=== PATIENT | female | born 1950 | race Caucasian/White ===

== ENCOUNTER → 2016-05-26 | Outpatient (CLI) | payer OTHER ==
[~2016-05-26] MED LIST: AMLO-110 PO; AMLO-114 PO; AMT50 PO; ATOR10TA82 PO; CALC500C70 PO; CARB0.01 OP; CETI10TA10 PO; CHOL1000 PO; ESTR10TA; GLCSC750600 PO; LISI40TA PO; LNS1 PO; MULT-190 PO; MULT-506 PO; OMEG10007 PO; OMEP20TA PO; [UNRECOGNIZED DRUG - CODE]; [UNRECOGNIZED DRUG - CODE] EX
--- NOTE | 2016-05-26 12:56 | DIAGNOSTIC IMAGING REPORT ---
CHEST 2 VIEWS ROUTINE CLINICAL HISTORY: ACUTE BRONCHITIS dyspnea COMPARISON STUDY: No previous studies for comparison. FINDINGS: Small parenchymal infiltrate medial right base. Moderate emphysematous change. Lungs otherwise appear clear. IMPRESSION: Small parenchymal infiltrate medial right base. Emphysematous change. Electronically signed by: Jewel Mcintosh M.D. 05/26/2016 12:54 PM Dictated Date/Time: 05/26/2016 12:51 PM
== END | disposition home or self-care (01) ==
LOC: C.RADBC 12:31
PROVIDERS: ATTEND Internal Medicine
DX: J20.9 Acute bronchitis, unspecified (principal); R50.9 Fever, unspecified; R05 Cough; R91.8 Other nonspecific abnormal finding of lung field

== ENCOUNTER → 2016-06-19 | Outpatient (CLI) | payer OTHER ==
--- NOTE | 2016-06-19 12:03 | DIAGNOSTIC IMAGING REPORT ---
CHEST 2 VIEWS ROUTINE CLINICAL HISTORY: ACUTE BRONCHITIS, FEVER, PRODUCTIVE COUGH COMPARISON STUDY: No previous studies for comparison. FINDINGS: The cardiac and mediastinal contours are normal. There is no evidence of focal pulmonary consolidation. There is no evidence of failure. No pleural effusions are visualized.[ There are minor linear atelectatic changes at the lung bases. IMPRESSION: No active disease in the chest. Electronically signed by: Mauricio Casas M.D. 06/19/2016 12:02 PM Dictated Date/Time: 06/19/2016 12:02 PM
== END | disposition home or self-care (01) ==
LOC: C.RADBC 11:16
PROVIDERS: ATTEND Internal Medicine
DX: J20.9 Acute bronchitis, unspecified (principal)

== ENCOUNTER → 2016-09-01 | Outpatient (CLI) | payer OTHER ==
[~2016-09-01] MED LIST changes: -ATOR10TA82 PO; +ATOR10TA88 PO
--- NOTE | 2016-09-04 08:00 | MAMMOGRAPHY REPORT ---
BILATERAL DIGITAL SCREENING MAMMOGRAM TOMOSYNTHESIS WITH CAD: 09/01/2016 CLINICAL HISTORY: Routine screening. TECHNIQUE: Breast tomosynthesis in addition to standard 2D mammography was performed. Current study was also evaluated with a Computer Aided Detection (CAD) system. COMPARISON: Comparison is made to exams dated: 08/31/2015 mammogram, 08/25/2014 mammogram, 06/05/2013 m ammogram, 04/24/2012 mammogram, 05/25/2011 mammogram, and 05/23/2010 mammogram - [facility] enter. BREAST COMPOSITION: The tissue of both breasts is heterogeneously dense, which may obscure small mas ses. FINDINGS: There are multiple bilateral circumscribed masses in the breasts. There are scattered deacon gn coarse calcifications and mild vascular calcification in the breasts. No suspicious spiculated or irregular mass, architectural distortion or cluster of new, suspicious microcalcifications is seen. IMPRESSION: ACR BI-RADS CATEGORY 1: NEGATIVE There is no mammographic evidence of malignancy. A 1 year screening mammogram is recommended. The pa tient will receive written notification of the results. Approximately 10% of breast cancers are not detected with mammography. A negative mammographic report should not delay biopsy if a clinically suggestive mass is present. Francisca Lee M.D. ay/:09/01/2016 16:14:22 Garnetter: Aravind ARCINIEGA(Mark)(M), [facility] letter sent: Normal 1/2 BI-RADS Code: ACR BI-RADS Category 1: Negative
== END | disposition home or self-care (01) ==
LOC: C.MAMM 10:59
PROVIDERS: ATTEND Internal Medicine Geriatric Medicine
DX: Z12.31 Encounter for screening mammogram for malignant neoplasm of breast (principal)

== ENCOUNTER → 2016-09-07 | Outpatient (CLI) | payer OTHER ==
[2016-09-07 17:20] LABS: BASO % 0.3 %; BASO ABS # 0.02 K/uL (0-0.2); COMPLETE YES; EOS % 1.2 %; IG% 0.2 %; LYMPH % 25.2 %; LYMPH ABS # 1.45 K/uL (1.2-3.4); MEAN CELL VOLUME 90.7 fL (80-100); MEAN CORPUSCULAR HEMOGLOBIN 30.1 pg (25-34); MEAN CORPUSCULAR HGB CONC 33.2 g/dl (32-36); MEAN PLATELET VOLUME 9.7 fL (7.4-10.4); MONO % 8.7 %; NEUT % 64.4 %; PLATELET COUNT 310 K/uL (130-400); RED BLOOD COUNT 4.08 M/uL (4.2-5.4); WHITE BLOOD COUNT 5.75 K/uL (4.8-10.8)
== END | disposition home or self-care (01) ==
LOC: C.LABBC 13:50
PROVIDERS: ATTEND Internal Medicine Geriatric Medicine
DX: R23.8 Other skin changes (principal)

== ENCOUNTER 2016-10-18 01:51 | Emergency (ER) | payer OTHER ==
[~2016-10-18] VITALS: Ht 166.4 cm; Wt 73.1 kg
[~2016-10-18 01:51] MED LIST changes: -AMLO-114 PO; -CETI10TA10 PO; -LNS1 PO; -OMEP20TA PO
[2016-10-18 02:00] VITALS: TEMP 36.6; Ht 166.4 cm; Wt 73.1 kg
--- NOTE | 2016-10-18 02:19 | EMERGENCY ROOM VISIT NOTE ---
History Report prepared by Diana: Evans Link Under the Supervision of: Dr. Amandeep Johnson D.O. First contact with patient: 02:04 Chief Complaint: ARM PAIN Stated Complaint: PAIN LEFT ARM, SWEAT,NAUSEA History of Present Illness The patient is a 66 year old female who presents to the Emergency Room with complaints of left arm pain that began 5 hours ago. She rates her pain a 0.5/10 in severity. An hour before the pain began, the patient notes that she carried a heavy 50 pound suitcase up the stairs. When the pain began, she felt a hot flash and the pain only lasted for 1 minute. She was then nauseated for 15 minutes. She denies any other symptoms at this current time, besides her arm pain. Source of History: patient Onset: 5 hours ago Position: arm (left) Symptom Intensity: 0.5/10 Quality: ache Timing: constant Note: She denies any other symptoms at this time. Review of Systems See HPI for pertinent positives and negatives. A total of ten systems were reviewed and were otherwise negative. Past Medical & Surgical Medical Problems: (1) HLD (hyperlipidemia) (2) HTN (hypertension) Family History Omitted secondary to the patient's age. Social History Smoking Status: Former Smoker Smokeless Tobacco Use: No Drug Use: none Marital Status: Housing Status: lives with significant other Occupation Status: retired Current/Historical Medications Scheduled Amlodipine (Norvasc), 10 MG PO DAILY Atorvastatin (Lipitor), 10 MG PO DAILY Calcium/Vitamin D (Os-Johny 500 Plus D), 2 TAB PO DAILY Carboxymethylcellulose-Glyceri (Optive), 1-2 DROPS OP PRN Cetirizine Hcl (Zyrtec), 10 MG PO DAILY Cholecalciferol (Vitamin D3), 1,000 INTER.UNIT PO DAILY Fish Oil (Slidell-3), 1,000 MG PO DAILY Lisinopril (Zestril), 40 MG PO DAILY Metronidazole (Metrolotion), 1 APPL EX DAILY Ocuvite Preservision (Ocuvite Preservision), 1 TAB PO DAILY Omeprazole (Omeprazole), 20 MG PO BID Scheduled PRN Eszopiclone (Lunesta), 1-2 MG PO HS PRN for Sleep Miscellaneous Medications Estradiol Vaginal (Vagifem), 10 MCG Allergies Coded Allergies: Amoxicillin (Verified Allergy, Unknown, DIARRHEA, 10/18/16) Bacitracin (Verified Allergy, Unknown, ITCHING, 10/18/16) Clavulanic Acid (Verified Allergy, Unknown, DIARRHEA, 10/18/16) Neomycin (Verified Allergy, Unknown, ITCHING, 10/18/16) Polymyxin B (Verified Allergy, Unknown, ITCHING, 10/18/16) Sulfa Drugs (Verified Allergy, Unknown, RASH, 10/18/16) Physical Exam Vital Signs Date Time Temp Pulse Resp B/P (MAP) Pulse Ox O2 Delivery O2 Flow Rate FiO2 10/18/16 03:38 82 12 123/73 95 Room Air 10/18/16 02:18 Room Air 10/18/16 02:14 97 10/18/16 02:00 36.6 95 18 143/78 100 Room Air Physical Exam GENERAL: Awake, alert, well-appearing, in no distress HENT: Normocephalic, atraumatic. Oropharynx unremarkable. EYES: Normal conjunctiva. Sclera non-icteric. NECK: Supple. No nuchal rigidity. FROM. No JVD. RESPIRATORY: Clear to auscultation. CARDIAC: Regular rate, normal rhythm. Extremities warm and well perfused. Pulses equal. ABDOMEN: Soft, non-distended. No tenderness to palpation. No rebound or guarding. No masses. RECTAL: Deferred. MUSCULOSKELETAL: Chest examination reveals no tenderness. The back is symmetrical on inspection without obvious abnormality. There is no CVA tenderness to palpation. No joint edema. LOWER EXTREMITIES: Calves are equal size bilaterally and non-tender. No edema. No discoloration. NEURO: Normal sensorium. No sensory or motor deficits noted. SKIN: No rash or jaundice noted. Medical Decision & Procedures ER Provider Diagnostic Interpretation: Radiology results as stated below per my review and radiologist interpretation: Chest x-ray Findings: A chest x-ray was performed and revealed no pneumothorax, effusion, infiltrate, pulmonary edema, free air under the diaphragm, or wide mediastinum. Per nm Laboratory Results 10/18/16 02:30 Red Blood Count 4.21, Mean Corpuscular Volume 88.6, Mean Corpuscular Hemoglobin 29.0, Mean Corpuscular Hemoglobin Concent 32.7, Mean Platelet Volume 8.9, Neutrophils (%) (Auto) 67.8, Lymphocytes (%) (Auto) 23.2, Monocytes (%) (Auto) 7.9, Eosinophils (%) (Auto) 0.7, Basophils (%) (Auto) 0.3, Neutrophils # (Auto) 4.99, Lymphocytes # (Auto) 1.71, Monocytes # (Auto) 0.58, Eosinophils # (Auto) 0.05, Basophils # (Auto) 0.02 10/18/16 02:30 Test 10/18/16 02:30 10/18/16 04:00 White Blood Count 7.36 K/uL (4.8-10.8) Red Blood Count 4.21 M/uL (4.2-5.4) Hemoglobin 12.2 g/dL (12.0-16.0) Hematocrit 37.3 % (37-47) Mean Corpuscular Volume 88.6 fL (80-100) Mean Corpuscular Hemoglobin 29.0 pg (25-34) Mean Corpuscular Hemoglobin Concent 32.7 g/dl (32-36) Platelet Count 279 K/uL (130-400) Mean Platelet Volume 8.9 fL (7.4-10.4) Neutrophils (%) (Auto) 67.8 % Lymphocytes (%) (Auto) 23.2 % Monocytes (%) (Auto) 7.9 % Eosinophils (%) (Auto) 0.7 % Basophils (%) (Auto) 0.3 % Neutrophils # (Auto) 4.99 K/uL (1.4-6.5) Lymphocytes # (Auto) 1.71 K/uL (1.2-3.4) Monocytes # (Auto) 0.58 K/uL (0.11-0.59) Eosinophils # (Auto) 0.05 K/uL (0-0.5) Basophils # (Auto) 0.02 K/uL (0-0.2) RDW Standard Deviation 39.3 fL (36.4-46.3) RDW Coefficient of Variation 12.2 % (11.5-14.5) Immature Granulocyte % (Auto) 0.1 % Immature Granulocyte # (Auto) 0.01 K/uL (0.00-0.02) Anion Gap 7.0 mmol/L (3-11) Est Creatinine Clear Calc Drug Dose 63.0 ml/min Estimated GFR () 78.3 Estimated GFR (Non- 67.5 BUN/Creatinine Ratio 16.2 (10-20) Calcium Level 10.2 mg/dl (8.5-10.1) Total Bilirubin 0.5 mg/dl (0.2-1) Direct Bilirubin 0.1 mg/dl (0-0.2) Aspartate Amino Transf (AST/SGOT) 22 U/L (15-37) Alanine Aminotransferase (ALT/SGPT) 25 U/L (12-78) Alkaline Phosphatase 85 U/L (45-117) Total Protein 7.9 gm/dl (6.4-8.2) Albumin 4.1 gm/dl (3.4-5.0) Bedside Troponin I < 0.030 ng/ml (0-0.045) Laboratory results reviewed by me ECG Indication: other (Arm pain) Rate (beats per minute): 95 Rhythm: normal sinus Findings: no acute ischemic change, other (Normal intervals, normal axis) ED Course 0204: The patient was evaluated in room B4B. A complete history and physical exam was performed. 0440: I reevaluated the patient. Discussed results and discharge instructions: She verbalized understanding and agreement. The patient is ready for discharge. Medical Decision Differential diagnoses include atypical cardiac, musculoskeletal pain, arm pain , muscle strain, and tendonitis. Repeat examination patient's resting in no distress patient has a low heart score. I do not suspect acute coronary syndrome thoracic aortic dissection or pulmonary embolism. It appears that the patient may have injured her arm when she was lifting luggage area patient has 2 troponins and a normal EKG there are nonischemic. I discussed evaluation with the patient and her at bedside at 4:45 AM and she would like to be discharged Medication Reconcilliation Current Medication List: was personally reviewed by me Blood Pressure Screening Patient's blood pressure: Normal blood pressure Blood pressure disposition: Did not require urgent referral Her first BP was high, and I believe this to be situational. Impression Primary Impression: Arm pain, left Scribe Attestation The scribe's documentation has been prepared under my direction and personally reviewed by me in its entirety. I confirm that the note above accurately reflects all work, treatment, procedures, and medical decision making performed by me. Departure Information Dispostion Home / Self-Care Referrals Vadim Doyle M.D. (PCP) Forms HOME CARE DOCUMENTATION FORM, IMPORTANT VISIT INFORMATION Patient Instructions ED Chest Pain Atypical Unkn Cause, ED Spasm Muscle, My [facility] Additional Instructions F/u with PMD; return if worse
[2016-10-18] MEDS ORDERED: AMLO-114 PO (02:25)
[2016-10-18] MEDS ORDERED: LNS1 PO (02:25)
[2016-10-18] MEDS ORDERED: OMEP20TA PO (02:25)
[2016-10-18] MEDS ORDERED: CETI10TA10 PO (02:25)
[2016-10-18 02:43] LABS: BASO % 0.3 %; BASO ABS # 0.02 K/uL (0-0.2); COMPLETE YES; EOS % 0.7 %; HEMATOCRIT 37.3 % (37-47); IG% 0.1 %; LYMPH % 23.2 %; LYMPH ABS # 1.71 K/uL (1.2-3.4); MEAN CELL VOLUME 88.6 fL (80-100); MEAN CORPUSCULAR HGB CONC 32.7 g/dl (32-36); MEAN PLATELET VOLUME 8.9 fL (7.4-10.4); MONO % 7.9 %; NEUT % 67.8 %; PLATELET COUNT 279 K/uL (130-400); RED BLOOD COUNT 4.21 M/uL (4.2-5.4); WHITE BLOOD COUNT 7.36 K/uL (4.8-10.8)
[2016-10-18 03:10] LABS: BUN/CREATININE RATIO 16.2 (10-20); CALCIUM 10.2 mg/dl (8.5-10.1); CREATININE 0.89 mg/dl (0.60-1.20); POTASSIUM 3.8 mmol/L (3.5-5.1)
[2016-10-18 04:53] VITALS: BP 121/66; PULSE 88; O2SAT 96
--- NOTE | 2016-10-18 06:34 | DIAGNOSTIC IMAGING REPORT ---
CHEST ONE VIEW PORTABLE HISTORY: 66 years-old Female CHEST PAIN acute left-sided chest pain without reported trauma. COMPARISON: Chest radiograph 06/19/2016 TECHNIQUE: AP view of the chest FINDINGS: Cardiomediastinal and hilar silhouettes are within normal limits. No pneumothorax, pleural effusion or focal airspace consolidation. There is no overt pulmonary edema. There is atherosclerosis of the aorta. Lungs are mildly hyperinflated. There is persistent subsegmental atelectasis of the left lung base. Bones are grossly intact. IMPRESSION: Mild hyperinflation without acute cardiopulmonary process. The above report was generated using voice recognition software. It may contain grammatical, syntax or spelling errors. Electronically signed by: Joao Evangelista M.D. 10/18/2016 6:32 AM Dictated Date/Time: 10/18/2016 6:31 AM
== END 2016-10-18 04:53 | disposition home or self-care (01) ==
LOC: C.EDB 01:52
DX: M79.602 Pain in left arm (principal); E78.5 Hyperlipidemia, unspecified; I10 Essential (primary) hypertension; Z87.891 Personal history of nicotine dependence; Z79.899 Other long term (current) drug therapy

== ENCOUNTER → 2017-01-08 | Outpatient (CLI) | payer OTHER ==
[~2017-01-08] MED LIST changes: -AMLO-110 PO; +AMLO-114 PO; -AMT50 PO; +ATOR10TA82 PO; -ATOR10TA88 PO; +CETI10TA10 PO; -GLCSC750600 PO; +LNS1 PO; -MULT-506 PO; +OMEP20TA PO; -[UNRECOGNIZED DRUG - CODE]
[2017-01-08 16:57] LABS: BASO % 0.4 %; BASO ABS # 0.02 K/uL (0-0.2); COMPLETE YES; EOS % 2.7 %; HEMATOCRIT 36.8 % (37-47); IG% 0.2 %; LYMPH % 24.9 %; MEAN CELL VOLUME 91.1 fL (80-100); MEAN CORPUSCULAR HEMOGLOBIN 29.5 pg (25-34); MEAN CORPUSCULAR HGB CONC 32.3 g/dl (32-36); MEAN PLATELET VOLUME 9.8 fL (7.4-10.4); MONO % 10.1 %; NEUT % 61.7 %; PLATELET COUNT 311 K/uL (130-400); RED BLOOD COUNT 4.04 M/uL (4.2-5.4); WHITE BLOOD COUNT 5.23 K/uL (4.8-10.8)
[2017-01-08 17:13] LABS: ALB/GLOB RATIO 1.2 (0.9-2); ALT/SGPT 28 U/L (12-78); AST/SGOT 24 U/L (15-37); BLOOD UREA NITROGEN 24 mg/dl (7-18); BUN/CREATININE RATIO 20.2 (10-20); CALCIUM 9.2 mg/dl (8.5-10.1); CARBON DIOXIDE 25 mmol/L (21-32); CHLORIDE 104 mmol/L (98-107); CHOLESTEROL 158 mg/dl (0-200); GLUCOSE 143 mg/dl (70-99); POTASSIUM 4.1 mmol/L (3.5-5.1); SODIUM 137 mmol/L (136-145); TRIGLYCERIDES 157 mg/dl (0-150); VERY LOW DENSITY LIPOPROT CALC 31 mg/dl
[2017-01-08 17:22] LABS: ALKALINE PHOSPHATASE 85 U/L (45-117); CHOLESTEROL/HDL RATIO 2.8; HDL CHOLESTEROL 57 mg/dl; LDL CHOLESTEROL CALCULATED 70 mg/dl
== END | disposition home or self-care (01) ==
LOC: C.LABBC 14:36
PROVIDERS: ATTEND Internal Medicine Geriatric Medicine
DX: I10 Essential (primary) hypertension (principal); E78.5 Hyperlipidemia, unspecified; I73.00 Raynaud's syndrome without gangrene; M85.80 Other specified disorders of bone density and structure, unspecified site

== ENCOUNTER → 2017-02-21 | Outpatient (CLI) | payer OTHER ==
[2017-02-21 17:21] LABS: BASO % 0.2 %; BASO ABS # 0.01 K/uL (0-0.2); EOS % 1.4 %; EOS ABS # 0.08 K/uL (0-0.5); HEMATOCRIT 37.9 % (37-47); HEMOGLOBIN 12.8 g/dL (12.0-16.0); IG# 0.01 K/uL (0.00-0.02); LYMPH % 28.4 %; LYMPH ABS # 1.67 K/uL (1.2-3.4); MEAN CORPUSCULAR HEMOGLOBIN 30.4 pg (25-34); MEAN CORPUSCULAR HGB CONC 33.8 g/dl (32-36); MEAN PLATELET VOLUME 10.4 fL (7.4-10.4); MONO % 10.7 %; MONO ABS # 0.63 K/uL (0.11-0.59); NEUT % 59.1 %; NEUT ABS # 3.47 K/uL (1.4-6.5); PLATELET COUNT 308 K/uL (130-400); RED CELL DISTRIBUTION WIDTH CV 13.1 % (11.5-14.5); RED CELL DISTRIBUTION WIDTH SD 42.8 fL (36.4-46.3); WHITE BLOOD COUNT 5.87 K/uL (4.8-10.8)
[2017-02-22 06:16] LABS: HEMOGLOBIN A1C 5.3 % (4.5-5.6)
== END | disposition home or self-care (01) ==
LOC: C.LABBC 13:14
PROVIDERS: ATTEND Internal Medicine Geriatric Medicine
DX: D64.9 Anemia, unspecified (principal); R73.9 Hyperglycemia, unspecified

== ENCOUNTER → 2017-09-03 | Outpatient (CLI) | payer OTHER ==
[~2017-09-03] MED LIST changes: -AMLO-114 PO; +AMLO10TA3 PO
--- NOTE | 2017-09-04 07:32 | MAMMOGRAPHY REPORT ---
BILATERAL DIGITAL SCREENING MAMMOGRAM TOMOSYNTHESIS WITH CAD: 09/03/2017 CLINICAL HISTORY: Routine screening. Patient has no complaints. TECHNIQUE: The study was acquired using full field digital technology and interpreted from soft copy. Breast tomosynthesis in addition to standard 2D mammography was performed. Current study was also ev aluated with a Computer Aided Detection (CAD) system. COMPARISON: Comparison is made to exams dated: 09/01/2016 mammogram, 08/31/2015 mammogram, 08/25/2014 m ammogram, 06/05/2013 mammogram, 04/24/2012 mammogram, and 05/25/2011 mammogram - [facility] enter. BREAST COMPOSITION: The tissue of both breasts is extremely dense, which lowers the sensitivity of ma mmography. FINDINGS: There are clustered microcalcifications in the upper outer posterior left breast, for which additional spot magnification views are recommended, possibly also including a spot magnification ex aggerated lateral CC projection. There are multiple bilateral circumscribed masses scattered in both breasts, fluctuating in size comp aring to prior mammograms, most likely representing fluctuating cysts. A lobulated and circumscribed 15 mm mass in the 12:00 posterior left breast has associated coarse calcification and may represent a degenerating fibroadenoma. There are other scattered benign-appearing calcifications bilaterally. Mild vascular calcification as well. No other suspicious mass, architectural distortion or cluster o f microcalcifications is seen. IMPRESSION: ACR BI-RADS CATEGORY 0: INCOMPLETE EVALUATION: NEED ADDITIONAL IMAGING EVALUATION The clustered microcalcifications in the upper outer left breast need additional evaluation. The patient will be called to schedule an appointment. Some breast cancers are not detected with mammography. A negative mammographic report should not jasper y biopsy if a clinically suggestive mass is present. Francisca Lee M.D. ay/:09/03/2017 17:26:01 Offset Lithographic Press Operator: RT Laney(Mark)(M), [facility] letter sent: Addl Imaging 0 BI-RADS Code: ACR BI-RADS Category 0: Incomplete Evaluation: Need Additional Imaging Evaluation
== END | disposition home or self-care (01) ==
LOC: C.MAMM 13:52
PROVIDERS: ATTEND Internal Medicine Geriatric Medicine
DX: Z12.31 Encounter for screening mammogram for malignant neoplasm of breast (principal); R92.0 Mammographic microcalcification found on diagnostic imaging of breast

== ENCOUNTER → 2017-09-12 | Outpatient (CLI) | payer OTHER ==
--- NOTE | 2017-09-12 14:57 | MAMMOGRAPHY REPORT ---
UNILATERAL LEFT DIGITAL DIAGNOSTIC MAMMOGRAM: 09/12/2017 CLINICAL HISTORY: 67-year-old woman called back from screening mammography for clustered microcalcifi cations in the left upper outer posterior breast. No family history of breast cancer. TECHNIQUE: Spot magnification left CC and ML views were obtained. COMPARISON: Comparison is made to exams dated: 09/03/2017 mammogram, 09/01/2016 mammogram, 08/31/2015 m ammogram, 08/25/2014 mammogram, 04/24/2012 ultrasound, and 05/25/2011 mammogram - [facility]. BREAST COMPOSITION: The tissue of left breast is heterogeneously dense, which may obscure small marcos s. FINDINGS: The spot magnification views of the left breast demonstrate a 7 mm cluster of amorphous adeel rocalcifications in the upper outer posterior breast. There are also scattered benign-appearing punc sotelo microcalcifications and coarse calcifications with associated stable mass in the 12:00 posterior left breast. When comparing back to prior available mammograms, particularly the 2013 and 2014 mamm ograms including an exaggerated lateral cc view performed 08/25/2014, these calcifications were likely present and with approximately 4 years of stability are most likely benign. However, given slight i ncreased conspicuity on the more recent exams, which may be due in part due to new equipment, a short interval follow-up left diagnostic mammogram including spot magnification views is recommended in 6 months. IMPRESSION: ACR-BI-RADS CATEGORY 3: PROBABLY BENIGN 1. There is a 7 mm cluster of amorphous microcalcifications in the upper outer posterior left breast , which may have been present on prior 2D mammograms dating back to 2013, therefore likely benign. G iven slight increased conspicuity, which may be in part due to new equipment, a short interval follow -up left diagnostic mammogram including spot magnification views is recommended in 6 months to ensure stability. These results recommendations were discussed with the patient at the time of the exam. She tentative ly scheduled a follow-up appointment prior to leaving the department. Some breast cancers are not detected with mammography. A negative mammographic report should not jasper y biopsy if a clinically suggestive mass is present. Francisca Lee M.D. ay/:09/12/2017 11:07:59 Chief Engineer Waterworks: RT Coni(Mark)(M), [facility] letter sent: Follow Up Recommended 3 BI-RADS Code: ACR-BI-RADS Category 3: Probably Benign
== END | disposition home or self-care (01) ==
LOC: C.MAMM 10:44
PROVIDERS: ATTEND Internal Medicine Geriatric Medicine
DX: R92.0 Mammographic microcalcification found on diagnostic imaging of breast (principal)

== ENCOUNTER 2020-11-11 17:39 | Inpatient (IN) ==
[2020-11-11 18:38] LABS: Basophils # (auto) 0.01 K/uL (0-0.2); Basophils % (auto) 0.2 %; Eosinophils # (auto) 0.01 K/uL (0-0.5); Eosinophils % (auto) 0.2 %; Hematocrit (blood only) 41.8 % (37-47); Hemoglobin 14.9 g/dL (12.0-16.0); Immature Granulocytes # (auto) 0.02 K/uL (0.00-0.02); Immature Granulocytes % (auto) 0.3 %; Lymphocytes # (auto) 0.98 K/uL (1.2-3.4); Lymphocytes % (auto) 16.3 %; Mean Corpuscular Hemoglobin 29.9 pg (25-34); Mean Corpuscular Hgb Conc 35.6 g/dL (32-36); Mean Corpuscular Volume 83.8 fL (80-100); Mean Platelet Volume 8.8 fL (7.4-10.4); Monocytes # (auto) 0.87 K/uL (0.11-0.59); Monocytes % (auto) 14.5 %; Neutrophils # (auto) 4.12 K/uL (1.4-6.5); Neutrophils % (auto) 68.5 %; Platelet Count 296 K/uL (130-400); RDW Coefficient of Variation 12.7 % (11.5-14.5); RDW Standard Deviation 38.5 fL (36.4-46.3); Red Blood Count 4.99 M/uL (4.2-5.4); White Blood Count 6.01 K/uL (4.8-10.8)
[2020-11-11 19:02] LABS: Alanine Aminotransferase 36 U/L (12-78); Albumin Level 3.8 gm/dl (3.4-5.0); Aspartate Aminotransferase 28 U/L (15-37); BUN Creatinine Ratio 8.6 (10-20); Blood Urea Nitrogen 10 mg/dl (7-18); Calcium 10.1 mg/dl (8.5-10.1); Carbon Dioxide 21 mmol/L (21-32); Chloride 92 mmol/L (98-107); Creatinine Clr Calc Pharmacy 46.9 ml/min; Est GFR (African American) 55.2 ml/min; Est GFR (Non-African American) 47.7 ml/min; Glucose 112 mg/dl (70-99); Potassium 3.6 mmol/L (3.5-5.1); Sodium 127 mmol/L (136-145)
[2020-11-11] MEDS ORDERED: SODIUM CHLORIDE 0.9% 1000ML 1,000 ML IV ONE (19:07)
[2020-11-11] MEDS ORDERED: LORazepam 1 MG/2 ML VIAL IV STA ×2 (19:07→19:59)
--- NOTE | 2020-11-11 19:09 | XRay Report ---
XR chest 1V portable INDICATION: MN ^weakness . TECHNIQUE: Single frontal radiograph of the chest was obtained. Comparison: Comparison is made to chest one view 10/18/2016 FINDINGS: No lines and tubes are seen. The cardiomediastinal silhouette is normal. The lungs are clear. No evid ence of pleural effusion or pneumothorax. IMPRESSION: No acute chest disease. ACT 112: Negative or not required by law. Electronically signed by: Trey De La Fuente M.D. 11/11/2020 7:08 PM
[2020-11-11 19:12] LABS: Albumin Globulin Ratio 0.8 (0.9-2); Alkaline Phosphatase 110 U/L (45-117); Bilirubin,Total 0.5 mg/dl (0.2-1); Globulin 4.5 gm/dl (2.5-4.0); Total Protein 8.3 gm/dl (6.4-8.2); Troponin I < 0.015 ng/ml (0-0.045)
--- NOTE | 2020-11-11 19:12 | Emergency Department Note ---
History of Present Illness General Chief complaint: Weakness Stated complaint: DIARRHEA, WEAK Time Seen by Provider: 11/11/20 18:55 Source: patient, RN notes reviewed and old records reviewed Mode of arrival: ambulatory Limitations: no limitations History of Present Illness Maximum Pain Intensity: 0 This patient comes in after having increasing diarrhea and weakness. She tells me she had diarrhea for about a year but is gotten worse over the last week and worse over last couple days. She has a GI appointment tomorrow. No nausea or vomiting she had temperature yesterday. No cough or shortness of breath she did have a Covid vaccine. She says she is feeling very anxious and shaky. Denies abdominal pain or headache. No fall or trauma. No sick contacts. No history of C. difficile. She does admit to me that she drinks 6-8 drinks a day and does not know if she has any withdrawal symptoms. She last drank yesterday. No blood or melena in her stool Home Medications Medication Instructions Recorded Confirmed Type cetirizine 10 mg tablet (Zyrtec) 10 mg PO DAILY 08/09/18 11/11/20 History propylene glycol 0.6 % eye drops 1 drp OPHTHALMIC (EYE) DIRECTED 08/09/18 11/11/20 History PRN estradiol 10 mcg vaginal tablet 5 mcg VAGINAL 2XWK tab 04/17/19 11/11/20 History (Yuvafem) lisinopril 40 mg tablet 40 mg PO DAILY #90 tab 01/30/20 11/11/20 Rx hydroxyzine HCl 25 mg tablet 50 mg PO HS PRN 30 Days #60 tab 04/14/20 11/11/20 Rx atorvastatin 10 mg tablet 10 mg PO DAILY #90 tab 06/15/20 11/11/20 Rx amlodipine 10 mg tablet 10 mg PO DAILY #90 tab 08/30/20 11/11/20 Rx omeprazole 20 mg capsule,delayed 20 mg PO BID #180 cap 09/10/20 11/11/20 Rx release aspirin 81 mg tablet,delayed 81 mg PO DAILY #90 tab 11/05/20 11/11/20 Rx release (Adult Aspirin Regimen) vitamin B complex 1 tab PO DAILY #30 tab 11/05/20 11/11/20 Rx cholecalciferol (vitamin D3) 50 100 mcg PO QAM 11/11/20 11/11/20 History mcg (2,000 unit) tablet (Vitamin D3) eszopiclone 2 mg tablet 2 mg PO HS 11/11/20 11/11/20 History Allergies Allergy/AdvReac Type Severity Reaction Status Date / Time bacitracin Allergy Mild ITCHING Verified 11/11/20 20:41 neomycin Allergy Mild ITCHING Verified 11/11/20 20:41 polymyxin B Allergy Mild ITCHING Verified 11/11/20 20:41 Sulfa (Sulfonamide Allergy Mild RASH Verified 11/11/20 20:41 Antibiotics) amoxicillin AdvReac Intermediate DIARRHEA Verified 11/11/20 20:41 clavulanic acid AdvReac Intermediate DIARRHEA Verified 11/11/20 20:41 Past Med/Surg History Medical History (Updated 11/12/20 @ 02:30 by Godfrey Monterroso MD) Contracture of finger joint Gastroesophageal reflux disease Headache Insomnia Mitral valve disorder Osteopenia Raynauds phenomenon Tubular adenoma of colon Vitamin D deficiency Surgical History Hx of section Hx of colonoscopy Hx of hand surgery Hx of tonsillectomy Family History Mother , age 61 of an [place] Dyslipidemia Heart disease Stroke Myocardial infarction Aunt Lung cancer Uncle Lung cancer Father , at 67 of heart failure Heart disease Daughter Migraine Grandmother (Maternal) Myocardial infarction Denies family history of Ovarian cancer Prostate cancer Breast cancer Colorectal cancer Social History Smoking Status: Never smoker Tobacco Type: Cigarettes Age Started Using Tobacco: 18; Age Quit Using Tobacco: 36; packs per day: 1; Years Smoked: 18; Cigarettes Per Day: 20 a day; Number of Years Since Quit: 30; Second Hand Exposure: No; Hx Alcohol Use: Yes Alcohol type: beer and wine Alcohol type Comment: 3-4 Alcohol Intake Frequency Comment: patient has 3 or 4 drinks of beer and/or wine per day and has been doing t Hx Substance Use: No Preferred Language: Lao Communication Ability: Effective Visual Impairment: No Limitations Hearing Ability: Normal marital status: Current Living Situation: Spouse current occupational status: retired 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 Feels Safe at Home: Yes Childhood Exposure to Second-Hand Smoke: Yes (father) Physical Activity Frequency: 3-4 Times per Week Seatbelt Use: always Sunscreen Use: Yes Review of Systems A total of 10 systems reviewed and were otherwise negative Physical Exam Vital Signs Vital Signs - 24 hr 11/11/20 17:58 11/11/20 18:17 11/11/20 18:30 Temperature 37.0 C Temperature Source Oral Pulse Rate 138 H 145 H 138 H Pulse Rate [Carotid] Pulse Rate from SpO2 Sensor 149 H 146 H Pulse Rhythm [Carotid] Pulse Strength [Carotid] Respiratory Rate 20 20 18 Respiratory Effort / Characteristics Respiratory Depth Respiratory Pattern Blood Pressure 122/85 137/102 H 172/90 H Blood Pressure [Right Arm] Blood Pressure Mean 97 113 117 Blood Pressure Mean [Right Arm] Blood Pressure Position [Right Arm] Pulse Oximetry 99 100 100 Oxygen Delivery Method Room Air Sepsis Recent Fever Within 48 Hours No Sepsis New/Unexplained Change in Mental Status N/A Sepsis Action Taken by Nursing No Action Required 11/11/20 19:08 11/12/20 01:59 Temperature Temperature Source Pulse Rate Pulse Rate [Carotid] 137 H 103 H Pulse Rate from SpO2 Sensor Pulse Rhythm [Carotid] Regular Regular Pulse Strength [Carotid] Normal Normal Respiratory Rate 20 20 Respiratory Effort / Characteristics Non-Labored Non-Labored Respiratory Depth Normal Respiratory Pattern Regular Blood Pressure Blood Pressure [Right Arm] 135/83 133/82 Blood Pressure Mean Blood Pressure Mean [Right Arm] 100 99 Blood Pressure Position [Right Arm] Sitting Lying Pulse Oximetry 97 94 Oxygen Delivery Method Room Air Room Air Sepsis Recent Fever Within 48 Hours Sepsis New/Unexplained Change in Mental Status Sepsis Action Taken by Nursing General: Well developed well nourished somewhat anxious and mildly shaky older female who otherwise appears in no acute distress, breathing comfortably on room air. Normal speech HEENT: Normal cephalic atraumatic. Pupils are equal round and reactive to lig ht. Extraocular movements are intact. Oropharynx is pink with moist mucous membranes. No swelling of the mouth lips or tongue. Neck: Supple with a midline trachea. No meningeal signs or stiffness, no JVD or bruits. No Stridor. Chest: Clear to auscultation bilaterally. No wheezes or rhonchi. No increased work of breathing. Heart tachycardic with a heart rate in the 140s and it seems irregular at times. Without murmurs or gallops. Abdomen: Soft nontender, nondistended without rebound guarding or rigidity. Extremities: No cyanosis clubbing or edema. No calf tenderness or assymetry Spine/Back. Non tender to palpation. No CVA tenderness Skin: Good turgor without rashes. Neurologic exam: Cranial nerves two through 12 are intact. Motor and sensation are intact and symmetrical throughout. Some shakiness when I have her hold her hands out Course Administered Medications Discontinued Medications Sodium Chloride (Nss 1000ml) 1,000 mls @ 999 mls/hr IV .Q1H1M ONE Stop: 11/11/20 20:07 Last Admin: 11/11/20 19:20 Dose: 999 mls/hr Documented by: [id number] Lorazepam (Ativan) 1 mg in 2 mls @ 2 mls/min IV NOW STA Stop: 11/11/20 19:08 Last Admin: 11/11/20 19:20 Dose: 2 mls/min Documented by: [id number] Multivitamins 10 ml/ Thiamine HCl 100 mg/ Folic Acid 1 mg/Sodium Chloride 1,011.2 mls @ 1,011.2 mls/hr IV .Q1H ONE Stop: 11/11/20 20:53 Last Admin: 11/11/20 21:27 Dose: 1,011.2 mls/hr Documented by: [id number] Potassium Chloride (K Dmitriy / Wtr) 10 meq in 100 mls @ 100 mls/hr IV Q1H STA Stop: 11/11/20 22:04 Last Admin: 11/11/20 22:25 Dose: 100 mls/hr Documented by: [id number] Potassium Chloride (K Dmitriy / Wtr) 10 meq in 100 mls @ 100 mls/hr IV ONE ONE Stop: 11/11/20 23:02 Last Admin: 11/11/20 22:59 Dose: 100 mls/hr Documented by: [id number] Medical Decision Making Differential Diagnosis Diarrhea, dehydration, arrhythmia, A. fib, electrolyte or metabolic abnormality, alcohol withdrawal, toxicologic, anemia, metabolic, infectious, Covid, C. difficile Medical Records Attestation: I reviewed the patient's medical records. Home Medications Current Medication List: was personally reviewed by me Laboratory Data Attestation: I reviewed the patient's lab results. Result diagrams: 11/11/20 18:26 11/11/20 18:26 Lab Results 11/11/20 11/11/20 11/11/20 Range/Units 18:26 18:26 18:26 WBC 6.01 (4.8-10.8) K/uL RBC 4.99 (4.2-5.4) M/uL Hgb 14.9 (12.0-16.0) g/dL Hct 41.8 (37-47) % MCV 83.8 (80-100) fL MCH 29.9 (25-34) pg MCHC 35.6 (32-36) g/dL RDW Std Deviation 38.5 (36.4-46.3) fL RDW Coeff of [place] 12.7 (11.5-14.5) % Plt Count 296 (130-400) K/uL MPV 8.8 (7.4-10.4) fL Immature Gran % (Auto) 0.3 % Neut % (Auto) 68.5 % Lymph % (Auto) 16.3 % [place] % (Auto) 14.5 % Eos % (Auto) 0.2 % Baso % (Auto) 0.2 % Neut # (Auto) 4.12 (1.4-6.5) K/uL Lymph # (Auto) 0.98 L (1.2-3.4) K/uL [place] # (Auto) 0.87 H (0.11-0.59) K/uL Eos # (Auto) 0.01 (0-0.5) K/uL Baso # (Auto) 0.01 (0-0.2) K/uL Immature Gran # (Auto) 0.02 (0.00-0.02) K/uL Sodium 127 L (136-145) mmol/L Potassium 3.6 (3.5-5.1) mmol/L Chloride 92 L (98-107) mmol/L Carbon Dioxide 21 (21-32) mmol/L Anion Gap 14.0 H (3-11) BUN 10 (7-18) mg/dl Creatinine 1.16 (0.6-1.2) mg/dl Est Cr Clr Drug Dosing 46.9 ml/min Est GFR ( Amer) 55.2 ml/min Est GFR (Non-Af Amer) 47.7 ml/min BUN/Creatinine Ratio 8.6 L (10-20) Glucose 112 H (70-99) mg/dl Osmolality 270 L (280-300) mOsm/kg Calcium 10.1 (8.5-10.1) mg/dl Magnesium (1.8-2.4) mg/dl Total Bilirubin 0.5 (0.2-1) mg/dl AST 28 (15-37) U/L ALT 36 (12-78) U/L Alkaline Phosphatase 110 (45-117) U/L Troponin I < 0.015 (0-0.045) ng/ml Total Protein 8.3 H (6.4-8.2) gm/dl Albumin 3.8 (3.4-5.0) gm/dl Globulin 4.5 H (2.5-4.0) gm/dl Albumin/Globulin Ratio 0.8 L (0.9-2) TSH 2.080 (0.300-4.500) uIu/ml Urine Color Urine Appearance (Clear) Urine pH (4.5-7.5) Ur Specific [place] (1.000-1.030) Urine Protein (Negative) Urine Glucose (UA) (Negative) Urine Ketones (Negative) Urine Blood (Negative) Urine Nitrite (Negative) Urine Bilirubin (Negative) Urine Urobilinogen (Negative) Ur Leukocyte Esterase (Negative) Urine WBC (Auto) (0-5) /hpf Urine RBC (Auto) (0-4) /hpf U Hyaline Cast (Auto) (0-5) /lpf U Epithel Cells (Auto) (0-5) /lpf Urine Bacteria (Auto) (Negative) Urine Osmolality (500-800) mOsm/kg Ur Random Sodium mmol/L Stl C. diff Tox B Gene (Neg) Ethyl Alcohol mg/dL (0-3) mg/dl COVID-19 Eval Order SARS-CoV-2 (PCR) (Negative) 11/11/20 11/11/20 11/11/20 Range/Units 19:06 19:08 19:08 WBC (4.8-10.8) K/uL RBC (4.2-5.4) M/uL Hgb (12.0-16.0) g/dL Hct (37-47) % MCV (80-100) fL MCH (25-34) pg MCHC (32-36) g/dL RDW Std Deviation (36.4-46.3) fL RDW Coeff of [place] (11.5-14.5) % Plt Count (130-400) K/uL MPV (7.4-10.4) fL Immature Gran % (Auto) % Neut % (Auto) % Lymph % (Auto) % [place] % (Auto) % Eos % (Auto) % Baso % (Auto) % Neut # (Auto) (1.4-6.5) K/uL Lymph # (Auto) (1.2-3.4) K/uL [place] # (Auto) (0.11-0.59) K/uL Eos # (Auto) (0-0.5) K/uL Baso # (Auto) (0-0.2) K/uL Immature Gran # (Auto) (0.00-0.02) K/uL Sodium (136-145) mmol/L Potassium (3.5-5.1) mmol/L Chloride (98-107) mmol/L Carbon Dioxide (21-32) mmol/L Anion Gap (3-11) BUN (7-18) mg/dl Creatinine (0.6-1.2) mg/dl Est Cr Clr Drug Dosing ml/min Est GFR ( Amer) ml/min Est GFR (Non-Af Amer) ml/min BUN/Creatinine Ratio (10-20) Glucose (70-99) mg/dl Osmolality (280-300) mOsm/kg Calcium (8.5-10.1) mg/dl Magnesium 2.2 (1.8-2.4) mg/dl Total Bilirubin (0.2-1) mg/dl AST (15-37) U/L ALT (12-78) U/L Alkaline Phosphatase (45-117) U/L Troponin I (0-0.045) ng/ml Total Protein (6.4-8.2) gm/dl Albumin (3.4-5.0) gm/dl Globulin (2.5-4.0) gm/dl Albumin/Globulin Ratio (0.9-2) TSH 2.190 (0.300-4.500) uIu/ml Urine Color Urine Appearance (Clear) Urine pH (4.5-7.5) Ur Specific [place] (1.000-1.030) Urine Protein (Negative) Urine Glucose (UA) (Negative) Urine Ketones (Negative) Urine Blood (Negative) Urine Nitrite (Negative) Urine Bilirubin (Negative) Urine Urobilinogen (Negative) Ur Leukocyte Esterase (Negative) Urine WBC (Auto) (0-5) /hpf Urine RBC (Auto) (0-4) /hpf U Hyaline Cast (Auto) (0-5) /lpf U Epithel Cells (Auto) (0-5) /lpf Urine Bacteria (Auto) (Negative) Urine Osmolality (500-800) mOsm/kg Ur Random Sodium mmol/L Stl C. diff Tox B Gene (Neg) Ethyl Alcohol mg/dL (0-3) mg/dl COVID-19 Eval Order Covid19 at [facility] SARS-CoV-2 (PCR) NEGATIVE (Negative) 11/11/20 11/12/20 11/12/20 Range/Units 21:17 00:10 00:10 WBC (4.8-10.8) K/uL RBC (4.2-5.4) M/uL Hgb (12.0-16.0) g/dL Hct (37-47) % MCV (80-100) fL MCH (25-34) pg MCHC (32-36) g/dL RDW Std Deviation (36.4-46.3) fL RDW Coeff of [place] (11.5-14.5) % Plt Count (130-400) K/uL MPV (7.4-10.4) fL Immature Gran % (Auto) % Neut % (Auto) % Lymph % (Auto) % [place] % (Auto) % Eos % (Auto) % Baso % (Auto) % Neut # (Auto) (1.4-6.5) K/uL Lymph # (Auto) (1.2-3.4) K/uL [place] # (Auto) (0.11-0.59) K/uL Eos # (Auto) (0-0.5) K/uL Baso # (Auto) (0-0.2) K/uL Immature Gran # (Auto) (0.00-0.02) K/uL Sodium (136-145) mmol/L Potassium (3.5-5.1) mmol/L Chloride (98-107) mmol/L Carbon Dioxide (21-32) mmol/L Anion Gap (3-11) BUN (7-18) mg/dl Creatinine (0.6-1.2) mg/dl Est Cr Clr Drug Dosing ml/min Est GFR ( Amer) ml/min Est GFR (Non-Af Amer) ml/min BUN/Creatinine Ratio (10-20) Glucose (70-99) mg/dl Osmolality (280-300) mOsm/kg Calcium (8.5-10.1) mg/dl Magnesium (1.8-2.4) mg/dl Total Bilirubin (0.2-1) mg/dl AST (15-37) U/L ALT (12-78) U/L Alkaline Phosphatase (45-117) U/L Troponin I (0-0.045) ng/ml Total Protein (6.4-8.2) gm/dl Albumin (3.4-5.0) gm/dl Globulin (2.5-4.0) gm/dl Albumin/Globulin Ratio (0.9-2) TSH (0.300-4.500) uIu/ml Urine Color Yellow Urine Appearance Clear (Clear) Urine pH 6.0 (4.5-7.5) Ur Specific [place] 1.010 (1.000-1.030) Urine Protein Trace H (Negative) Urine Glucose (UA) Negative (Negative) Urine Ketones 1+ H (Negative) Urine Blood Trace H (Negative) Urine Nitrite Negative (Negative) Urine Bilirubin Negative (Negative) Urine Urobilinogen Negative (Negative) Ur Leukocyte Esterase Negative (Negative) Urine WBC (Auto) 1-5 (0-5) /hpf Urine RBC (Auto) 0-4 (0-4) /hpf U Hyaline Cast (Auto) 1-5 (0-5) /lpf U Epithel Cells (Auto) >30 H (0-5) /lpf Urine Bacteria (Auto) 1+ H (Negative) Urine Osmolality (500-800) mOsm/kg Ur Random Sodium mmol/L Stl C. diff Tox B Gene Negative Cdiff Gene (Neg) Ethyl Alcohol mg/dL < 3.0 (0-3) mg/dl COVID-19 Eval Order SARS-CoV-2 (PCR) (Negative) 11/12/20 11/12/20 Range/Units 00:10 00:10 WBC (4.8-10.8) K/uL RBC (4.2-5.4) M/uL Hgb (12.0-16.0) g/dL Hct (37-47) % MCV (80-100) fL MCH (25-34) pg MCHC (32-36) g/dL RDW Std Deviation (36.4-46.3) fL RDW Coeff of [place] (11.5-14.5) % Plt Count (130-400) K/uL MPV (7.4-10.4) fL Immature Gran % (Auto) % Neut % (Auto) % Lymph % (Auto) % [place] % (Auto) % Eos % (Auto) % Baso % (Auto) % Neut # (Auto) (1.4-6.5) K/uL Lymph # (Auto) (1.2-3.4) K/uL [place] # (Auto) (0.11-0.59) K/uL Eos # (Auto) (0-0.5) K/uL Baso # (Auto) (0-0.2) K/uL Immature Gran # (Auto) (0.00-0.02) K/uL Sodium (136-145) mmol/L Potassium (3.5-5.1) mmol/L Chloride (98-107) mmol/L Carbon Dioxide (21-32) mmol/L Anion Gap (3-11) BUN (7-18) mg/dl Creatinine (0.6-1.2) mg/dl Est Cr Clr Drug Dosing ml/min Est GFR ( Amer) ml/min Est GFR (Non-Af Amer) ml/min BUN/Creatinine Ratio (10-20) Glucose (70-99) mg/dl Osmolality (280-300) mOsm/kg Calcium (8.5-10.1) mg/dl Magnesium (1.8-2.4) mg/dl Total Bilirubin (0.2-1) mg/dl AST (15-37) U/L ALT (12-78) U/L Alkaline Phosphatase (45-117) U/L Troponin I (0-0.045) ng/ml Total Protein (6.4-8.2) gm/dl Albumin (3.4-5.0) gm/dl Globulin (2.5-4.0) gm/dl Albumin/Globulin Ratio (0.9-2) TSH (0.300-4.500) uIu/ml Urine Color Urine Appearance (Clear) Urine pH (4.5-7.5) Ur Specific [place] (1.000-1.030) Urine Protein (Negative) Urine Glucose (UA) (Negative) Urine Ketones (Negative) Urine Blood (Negative) Urine Nitrite (Negative) Urine Bilirubin (Negative) Urine Urobilinogen (Negative) Ur Leukocyte Esterase (Negative) Urine WBC (Auto) (0-5) /hpf Urine RBC (Auto) (0-4) /hpf U Hyaline Cast (Auto) (0-5) /lpf U Epithel Cells (Auto) (0-5) /lpf Urine Bacteria (Auto) (Negative) Urine Osmolality 309 L (500-800) mOsm/kg Ur Random Sodium 48 mmol/L Stl C. diff Tox B Gene (Neg) Ethyl Alcohol mg/dL (0-3) mg/dl COVID-19 Eval Order SARS-CoV-2 (PCR) (Negative) Imaging Data Attestation: I personally reviewed and interpreted this imaging study as follow s: My Impression: Chest x-rayno acute infiltrate, failure, pneumothorax. No cardiomegaly Radiologist's Impression: Chest X-Ray 11/11/20 18:04 XR chest 1V portable INDICATION: MN ^weakness . TECHNIQUE: Single frontal radiograph of the chest was obtained. Comparison: Comparison is made to chest one view 10/18/2016 FINDINGS: No lines and tubes are seen. The cardiomediastinal silhouette is normal. The kylee ngs are clear. No evidence of pleural effusion or pneumothorax. IMPRESSION: No acute chest disease. ACT 112: Negative or not required by law. Electronically signed by: Trey De La Fuente M.D. 11/11/2020 7:08 PM ECG Data Attestation: I personally reviewed and interpreted this ECG as follows: Indication: + weakness Rate (beats per minute): 141 Rhythm: + atrial fibrillation ECG Intervals/blocks: + Right Bundle branch block ECG [place]: + Normal ECG ST segments: + Normal ST segments ECG Findings: no PACs or no PVCs Comparison ECG Date: from (10/18/16) Change: the following changes noted (Atrial fibrillation has replaced normal sinus rhythm) MDM Narrative This patient comes in as described above. She was placed on a cafeteria cashier room C8. She was noted to have a rapid irregular narrow complex tachycardia likely consistent with A. fib. She appears to have an underlying right bundle branch block as well. IV axis tablet she does appear to be shaky and tells me she drinks 6-8 drinks a day and she feels nervous. She is asking something for her nerves. Give her Ativan 1 mg IV to help with this and also but any potential alcohol withdrawal she was given 1 L IV normal saline bolus. We did a chest x-ray does not show any congestive heart failure, pneumonia, or pneumothorax. EKG shows A. fib. Multiple blood testing was obtained. I did order stool studies and Covid testing as well. She was reassessed frequently. She did receive a second dose of IV Ativan. Her troponin is normal. Chest x- ray is normal. I think the A. fib may be related to her diarrhea/dehydration and alcohol use or withdrawal. I do think she needs to be admitted for further treatment and evaluation. Also Dr. Bauman to see her for these measures. Continuous cardiac monitoring: Orders placed in EMR for continuous cardiac m onitoring. Rapid A. fib with a rate of 140 Impression & Plan Atrial fibrillation with RVR, Acute dehydration, Lab test negative for COVID-19 virus, Alcohol use disorder Discharge Plan Visit Data Chief Complaint: Weakness Stated Complaint: DIARRHEA, WEAK ED Provider: Godfrey Monterroso Discharge Problem: Atrial fibrillation with RVR, Acute dehydration, Lab test negative for COVID-19 virus, Alcohol use disorder Forms Stand Alone Forms: My [facility] Prescriptions Prescriptions: No Action lisinopril 40 mg tablet 40 mg PO DAILY Qty: 90 RF: 3 atorvastatin 10 mg tablet 10 mg PO DAILY Qty: 90 RF: 3 amlodipine 10 mg tablet 10 mg PO DAILY Qty: 90 RF: 3 omeprazole 20 mg capsule,delayed release(DR/EC) 20 mg PO BID Qty: 180 RF: 1 aspirin [Adult Aspirin Regimen] 81 mg tablet,delayed release (DR/EC) 81 mg PO DAILY Qty: 90 RF: 3 vitamin B complex Tablet 1 tab PO DAILY Qty: 30 RF: 11 hydroxyzine HCl 25 mg tablet 50 mg PO HS PRN (Reason: insomnia) 30 Days Qty: 60 RF: 5 cetirizine [Zyrtec] 10 mg Tablet 10 mg PO DAILY RF: 0 propylene glycol 0.6 % Drops 1 drp OPHTHALMIC (EYE) DIRECTED PRN (Reason: Dry Eye(S)) RF: 0 estradiol [Yuvafem] 10 mcg tablet 5 mcg VAGINAL 2XWK RF: 0 eszopiclone 2 mg tablet 2 mg PO HS RF: 0 cholecalciferol (vitamin D3) [Vitamin D3] 50 mcg (2,000 unit) Tablet 100 mcg PO QAM RF: 0 Referrals Referrals: Thi Hill MD [Primary Care Provider] -
[2020-11-11 19:40] LABS: Magnesium 2.2 mg/dl (1.8-2.4); Thyroid Stimulating Hormone 2.19 uIu/ml (0.300-4.500)
[2020-11-11] MEDS ORDERED: MULTI-VITAMIN INFUSION 10 ML, THIAMINE HCL 100 MG, FOLIC ACID 1 MG in SODIUM CHLORIDE 0... IV ONE (19:54)
[2020-11-11] MEDS ORDERED: POTASSIUM CHLORIDE / WTR 10 MEQ/100 ML PLCT IV STA (21:05)
--- NOTE | 2020-11-11 21:19 | History & Physical Report ---
Date of Service November 11, 2020 Assessment & Plan (1) Alcohol withdrawal: Plan: Minerva Hairston is a 70-year-old female with past medical history of migraine with aura, mild aortic stenosis, tricuspid regurgitation, TIA, hyperlipidemia, hypertension, anxiety, GERD who comes to [facility] due to feeling very weak and having worsening diarrhea for the past 3 days. Has a long history of 6-8 drinks daily. Alcohol Withdrawal -Admit to PCU -AWSS protocol with as needed Ativan, daily thiamine and folate -Normal saline + 20mEq KCl at 125cc/hr for maintenance -Monitor mental status per protocol -Morning CBC, chemistry/liver profile Hyponatremia -Urine osmolality and urine sodium pending -Maintenance IV fluids as above -Monitor sodium in a.m. Tachycardia -EKG with sinus tachycardia -Consider IV Cardizem versus beta-blockers if not improving after IV fluids Diarrhea -Stool culture and WBC stool smear pending -C. difficile pending Hypertension/Hyperlipidemia -Holding home amlodipine at this time, continue lisinopril -Continue atorvastatin GERD -PPI per hospital formulary to substitute home omeprazole Anxiety/Insomnia -Hold home hold home hydroxyzine and eszopiclone DVT prophylaxis: SCDs Dispo: Admit to PCU for alcohol withdrawal protocol FEN GI: Regular diet, NSS plus KCl 20 mEq at 125 cc/h CODE STATUS: Full code (2) Diarrhea: (3) Hyperlipidemia: (4) Hypertension: (5) Gastroesophageal reflux disease: (6) Fatigue: (7) Anxiety disorder: History of Present Illness Primary Care Provider: Thi Hill MD Minerva Hairston is a 70-year-old female with past medical history of migraine with aura, mild aortic stenosis, tricuspid regurgitation, TIA, hyperlipidemia, hypertension, anxiety, GERD who comes to [facility] due to feeling very weak and having worsening diarrhea for the past 3 days. She mentions that she has had ongoing intermittent diarrhea for the past year that happens about 2 to 3 days/month in which she has 2-3 bowel movements per day. However, she mentions that since Sunday she had 15-20 bowel movements per day. She has been Covid vaccinated and has not been around anyone with similar symptoms. She does say that she drinks well water at home and in the room does not believe it has been chlorinated in a while. She says she had multiple episodes of bowel incontinence. Also reports a fever of 103. Reports a tiny amount of red blood and mucus in the stool. The patient reports a 6-8 drink per day alcohol history. She does report that she has wanted to scale this back but has not been able to. Over the last 2 days she reports drinking 1 glass of wine and 1 beer per day day. She denies any loss of consciousness, confusion, nausea, vomiting, cough, shortness of breath. In the ED patient been found to be tachycardic to 130s. Per review of her EKG by myself and attending physician, official read of atrial fibrillation is thought to be inaccurate and appears more as sinus tachycardia. Patient had normal chest x-ray. She had labs showing normal white count, normal hemoglobin, normal platelet count. She had a sodium of 127, serum osmolality of 270, negative troponin, and normal TSH. Ethyl alcohol levels, urine osmolality, and urine sodium levels pending. Patient received lorazepam 1 mg IV x2, banana bag x1, normal saline 1 L fluid bolus x1, potassium chloride 10 mEq IV x2. Allergies Allergy/AdvReac Type Severity Reaction Status Date / Time bacitracin Allergy Mild ITCHING Verified 11/11/20 20:41 neomycin Allergy Mild ITCHING Verified 11/11/20 20:41 polymyxin B Allergy Mild ITCHING Verified 11/11/20 20:41 Sulfa (Sulfonamide Allergy Mild RASH Verified 11/11/20 20:41 Antibiotics) amoxicillin AdvReac Intermediate DIARRHEA Verified 11/11/20 20:41 clavulanic acid AdvReac Intermediate DIARRHEA Verified 11/11/20 20:41 Home Medications Medication Instructions Recorded Confirmed Type cetirizine 10 mg tablet (Zyrtec) 10 mg PO DAILY 08/09/18 11/11/20 History propylene glycol 0.6 % eye drops 1 drp OPHTHALMIC (EYE) DIRECTED 08/09/18 11/11/20 History PRN estradiol 10 mcg vaginal tablet 5 mcg VAGINAL 2XWK tab 04/17/19 11/11/20 History (Yuvafem) lisinopril 40 mg tablet 40 mg PO DAILY #90 tab 01/30/20 11/11/20 Rx hydroxyzine HCl 25 mg tablet 50 mg PO HS PRN 30 Days #60 tab 04/14/20 11/11/20 Rx atorvastatin 10 mg tablet 10 mg PO DAILY #90 tab 06/15/20 11/11/20 Rx amlodipine 10 mg tablet 10 mg PO DAILY #90 tab 08/30/20 11/11/20 Rx omeprazole 20 mg capsule,delayed 20 mg PO BID #180 cap 09/10/20 11/11/20 Rx release aspirin 81 mg tablet,delayed 81 mg PO DAILY #90 tab 11/05/20 11/11/20 Rx release (Adult Aspirin Regimen) vitamin B complex 1 tab PO DAILY #30 tab 11/05/20 11/11/20 Rx cholecalciferol (vitamin D3) 50 100 mcg PO QAM 11/11/20 11/11/20 History mcg (2,000 unit) tablet (Vitamin D3) eszopiclone 2 mg tablet 2 mg PO HS 11/11/20 11/11/20 History Past Med/Surg History Medical History (Updated 11/12/20 @ 16:27 by Nitin Ceballos MD) Contracture of finger joint Gastroesophageal reflux disease Headache Insomnia Mitral valve disorder Osteopenia Raynauds phenomenon Tubular adenoma of colon Vitamin D deficiency Surgical History Hx of section Hx of colonoscopy Hx of hand surgery Hx of tonsillectomy Family History Mother , age 61 of an [place] Dyslipidemia Heart disease Stroke Myocardial infarction Aunt Lung cancer Uncle Lung cancer Father , at 67 of heart failure Heart disease Daughter Migraine Grandmother (Maternal) Myocardial infarction Denies family history of Ovarian cancer Prostate cancer Breast cancer Colorectal cancer Social History Smoking Status: Former smoker Tobacco Type: Cigarettes Age Started Using Tobacco: 18; Age Quit Using Tobacco: 36; packs per day: 1; Years Smoked: 18; Cigarettes Per Day: 20 a day; Smoking End Date: quit 35 yrs ago; Number of Years Since Quit: 30; Second Hand Exposure: No; Do You Dip or Chew Tobacco: No; Tobacco Cessation Education Requested by Patient: No Hx Alcohol Use: Yes Alcohol type: beer and wine Alcohol type Comment: 3-4 Alcohol Intake Frequency Comment: patient has 3 or 4 drinks of beer and/or wine per day and has been doing t Hx Substance Use: No Preferred Language: Sammarinese Communication Ability: Effective Visual Impairment: No Limitations Hearing Ability: Normal Bodily Injury Adjuster Required: No Beliefs That Will Affect Care: None marital status: Current Living Situation: Spouse current occupational status: retired 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 How many Children do You have: 1 Feels Safe at Home: Yes Safety Concerns: Feels Safe At This Time Childhood Exposure to Second-Hand Smoke: Yes (father) Physical Activity Frequency: 3-4 Times per Week Seatbelt Use: always Sunscreen Use: Yes Assistive Devices: None Review of Systems Constitutional: + fever, + chills and + weakness Eyes: no worsening vision Respiratory: no cough, no dyspnea and no wheezing Cardiovascular: no chest pain and no palpitations Gastrointestinal: + diarrhea/loose stools; no abdominal pain, no nausea and no vomiting Genitourinary: no dysuria, no urinary frequency and no urinary urgency Physical Exam Physical Exam: GENERAL: A&Ox3. NAD. HEENT: PERRL, EOMI. Moist mucous membranes. NECK: No JVD. No lymphadenopathy. CHEST/LUNGS: CTAB A/P. No crackles, wheezes, rales, rhonchi. HEART: RRR. No m/g/r. No carotid bruits. ABDOMEN: NT/ND, soft. BS+ x4 EXTREMITIES: No cyanosis, no clubbing, no edema. SKIN: Warm and dry. No rashes or lesions. PSYCHIATRIC: Euthymic affect, no SI, no pressured speech, no hallucinations NEUROLOGIC: No FND. CN II-XII grossly intact. Results & Data Results [facility] Data ([facility]) Vital Signs (Past 12 Hours) Vital Signs Temp Pulse Pulse Resp BP BP Pulse Ox 11/11/20 19:08 137 H 20 135/83 97 11/11/20 18:30 138 H 18 172/90 H 100 11/11/20 18:17 145 H 20 137/102 H 100 11/11/20 17:58 37.0 C 138 H 20 122/85 99 Supervising Physician Co-Signing Physician Notes Attending addendum: I have physically seen this patient, have supervised the medical residents activities, and agree with the H&P unless as otherwise noted. Assessment and Plan: Alcohol withdrawal- Admit to monitored bed AWSS protocol NSS + KCl 20 mEq at high 25 mils per hour Follow serial CBC with differential chemistry and magnesium levels Hyponatremia- Sodium 127 upon admission Urine osmolality and serum osmolality pending IV fluids as above Serial laboratories Tachycardia/intermittent A. fib with RVR- Likely version of holiday heart Continue aggressive rehydration, and add Cardizem IV/Lopressor IV if persistent after rehydration Remaining orders and notations as noted Resident Activity Tracking Resident Involvement: Resident Care Provided Care Provided: Adult Hospital Medicine
[2020-11-11] MEDS ORDERED: POTASSIUM CHLORIDE / WTR 10 MEQ/100 ML PLCT IV ONE (22:03)
[2020-11-12 00:35] LABS: Appearance Urine Clear (Clear); Bacteria Urine Automated 1+ (Negative); Bilirubin Urine Negative (Negative); Blood Urine Trace (Negative); Color Urine Yellow; Epithelial Cell Urine Auto >30 /lpf (0-5); Glucose Urine UA Negative (Negative); Ketones Urine 1+ (Negative); Leukocyte Esterase Urine Negative (Negative); Nitrite Urine Negative (Negative); Protein Urine Trace (Negative); RBC Urine Automated 0-4 /hpf (0-4); Urobilinogen Urine Negative (Negative)
[2020-11-12] MEDS ORDERED: LORazepam 1 MG/2 ML VIAL IV PRN (03:50)
[2020-11-12] MEDS ORDERED: ACETAMINOPHEN 325 MG TAB PO PRN (03:50)
[2020-11-12] MEDS ORDERED: ATIVAN IV ALCOHOL WITHDRAWL IV PRN (03:50)
[2020-11-12] MEDS ORDERED: LORazepam 3 MG/6 ML VIAL IV PRN (03:50)
[2020-11-12] MEDS ORDERED: ONDANSETRON INJ 2 MG/ML 2 ML VIAL IV PRN (03:50)
[2020-11-12] MEDS ORDERED: ALUMINUM/MAGNESIUM SUSP 30 ML UDC PO PRN (03:50)
[2020-11-12] MEDS ORDERED: LORazepam 2 MG/4 ML VIAL IV PRN (03:50)
[2020-11-12] MEDS ORDERED: ARTIFICIAL TEARS OP PRN (03:58)
[2020-11-12] MEDS ORDERED: LORazepam 1 MG/2 ML VIAL IV STA (05:03)
[2020-11-12] MEDS ORDERED: METOPROLOL TARTRATE 1 MG/ML VIAL IV PRN ×2 (05:04→13:16)
[2020-11-12] MEDS: NSS + 20MEQ KCL 20 MEQ/1,000 ML BAG IV SCH ×3 (05:43→20:50)
[2020-11-12] MEDS: PANTOprazole 40 MG TAB PO SCH ×2 (05:43→20:50)
[2020-11-12 08:21] LABS: Partial Thromboplastin Time 25.1 Seconds (21.0-31.0); Prothrombin Time 10.3 Seconds (9.0-12.0)
[2020-11-12 08:38] LABS: Basophils # (auto) 0.01 K/uL (0-0.2); Basophils % (auto) 0.2 %; Eosinophils # (auto) 0.03 K/uL (0-0.5); Eosinophils % (auto) 0.5 %; Hematocrit (blood only) 31.1 % (37-47); Hemoglobin 10.6 g/dL (12.0-16.0); Immature Granulocytes # (auto) 0.02 K/uL (0.00-0.02); Immature Granulocytes % (auto) 0.4 %; Lymphocytes % (auto) 8.9 %; Mean Corpuscular Hgb Conc 34.1 g/dL (32-36); Mean Corpuscular Volume 85.2 fL (80-100); Mean Platelet Volume 8.2 fL (7.4-10.4); Monocytes # (auto) 0.91 K/uL (0.11-0.59); Monocytes % (auto) 16.3 %; Neutrophils # (auto) 4.13 K/uL (1.4-6.5); Neutrophils % (auto) 73.7 %; Platelet Count 221 K/uL (130-400); RDW Coefficient of Variation 12.6 % (11.5-14.5); RDW Standard Deviation 39.2 fL (36.4-46.3); Red Blood Count 3.65 M/uL (4.2-5.4)
[2020-11-12] MEDS: CHOLECALCIFEROL 1,000 UNITS 25 MCG TAB PO SCH (08:48)
[2020-11-12] MEDS: ATORVASTATIN 10 MG TAB PO SCH (08:48)
[2020-11-12] MEDS: ASPIRIN 81 MG ECTAB PO SCH (08:48)
[2020-11-12] MEDS: VITAMIN B COMPLEX TAB PO SCH (08:48)
[2020-11-12] MEDS: lisinopril 40 MG TAB PO SCH (08:48)
[2020-11-12 08:53] LABS: Albumin Globulin Ratio 0.8 (0.9-2); Albumin Level 2.5 gm/dl (3.4-5.0); BUN Creatinine Ratio 12.4 (10-20); Bilirubin Direct 0.1 mg/dl (0-0.2); Bilirubin,Total 0.4 mg/dl (0.2-1); Calcium 8.1 mg/dl (8.5-10.1); Creatinine Clr Calc Pharmacy 84.9 ml/min; Est GFR (African American) 104.3 ml/min; Potassium 3.8 mmol/L (3.5-5.1); Total Protein 5.5 gm/dl (6.4-8.2)
[2020-11-12] MEDS ORDERED: THIAMINE HCL 100 MG in SYRINGE 9 ML IV SCH (09:00)
[2020-11-12] MEDS ORDERED: FOLIC ACID 1 MG in SYRINGE 9.8 ML IV SCH (09:00)
[2020-11-12] MEDS ORDERED: LOPERAMIDE HCL 2 MG CAP PO PRN (13:18)
[2020-11-12] MEDS: METOPROLOL TARTRATE 25 MG TAB PO SCH ×2 (14:20→20:50)
--- NOTE | 2020-11-12 16:02 | Hospitalist Progress Note ---
Date of Service November 12, 2020 Assessment & Plan (1) Atrial fibrillation with RVR: Plan: New diagnosis this admission. Chads-Vasc of 3 (age, gender, and HTN). Her possible TIA was actually a migraine per neurology (see note from 05/13/2020). Normal TSH. Alcohol consumption likely playing a role. - Started metoprolol 25 mg PO TID - Metoprolol IV PRN for HR >110 - Defer anticoagulation to cardiology - Cardiology consulted - TTE ordered. Normal EF in 03/2020. (2) Hyponatremia: Plan: Hypovolemic hyponatremia. - Likely from diarrhea. - Improving with IV fluids and treatment of diarrhea. - Monitor (3) Diarrhea: Plan: Ongoing relapsing-remitting for about [address] Metz at [facility]. Will have a few days of diarrhea most months, though she had at least 15 episodes prior to admission. Was planning on seeing Dr. Metz today (11/12), but was admitted instead. - C. diff negative. Stool culture pending from 11/12 - Imodium PRN - GI consulted for thought of microscopic colitis and consideration of colonoscopy (4) Alcohol use disorder: Plan: Per report, drinks as much as 6 alcoholic beverages in a day; however, down to 1-2 in last few days, and would like to reduce overall consumption to that level going forward. - On my interview today (11/12), no signs/symptoms of withdrawal. - Continue CIWA for now (5) Hypertension: Plan: BP today is 115/70. - Continue ACEi - Hold amlodipine for now; restart as needed (6) Vitamin B12 deficiency: Plan: B12 was 395 in 05/2020. - I don't see B12 listed on home meds - Check in AM (7) Classic migraine with aura: Plan: Long-standing issue. Follows with Dr. Grant. - Monitor (8) Hyperlipidemia: Plan: - Continue statin - Continue ASA (for white matter spots per neurology note from 05/13/2020) (9) Insomnia: Plan: Takes Lunesta at baseline, but would like to stop in general. - Melatonin PRN (10) Gastroesophageal reflux disease: Plan: - Continue PPI (11) Anxiety disorder: Plan: - Continue home hydroxyzine PRN (12) DVT prophylaxis: Plan: SCDs - Initiating anticoagulation likely with cardiology, so will defer heparin for now Admission and Anticipated Discharge Date Admission Date: November 12, 2020 Subjective Feeling better today. A few episodes of diarrhea early this morning, but none since then. No shakiness. Reports no fevers/chills, chest pain, shortness of breath, abdominal pain, nausea, or vomiting. Physical Exam Constitutional: WD/WN, vitals as above Eyes: EOM intact bilaterally; no conjunctival abnormality ENMT: external ear and nose normal, oropharynx normal Neck: trachea midline, no thyromegaly normal visual inspection Respiratory: normal respiratory effort, lungs clear to auscultation no respiratory distress Cardiovascular: Rate/Rhythm: + tachycardic and + irregularly irregular Gastrointestinal (Abdomen): Inspection/Auscultation: abdomen normal to inspection; abdomen not distended Musculoskeletal: no cyanosis or clubbing, extremities motor strength 5/5 Skin: no rashes, warm and dry Neurologic: moves all extremities and awake Motor/Sensory: no tremor (None in hands when outstretched) and no fasciculations (None on tongue) Psychiatric: Orientation: alert, oriented to person and cooperative Results & Data Results & Data ([facility]) Vital Signs (Past 12 Hours) Vital Signs Temp Pulse Pulse Resp BP BP Pulse Ox 11/12/20 13:55 120 H 115/68 11/12/20 12:00 36.5 C 98 H 18 115/68 96 11/12/20 08:00 36.5 C 117 H 89 16 108/64 95 PG Care Time/CCT Total # of Minutes Spent Total Time Spent with Patient: Total time spent is greater than 50% in coordination of care (as documented) at patient's floor/unit and/or counseling patient: Coding Level of Care Code 92517 Subseq Hosp Care Lvl 3 Diagnoses Atrial fibrillation with RVR I48.91 Alcohol use disorder Diarrhea R19.7 Vitamin B12 deficiency E53.8 Classic migraine with aura G43.109 Hypertension I10 Hyperlipidemia E78.5 Insomnia G47.00 DVT prophylaxis Z29.9 Hyponatremia E87.1 Gastroesophageal reflux disease K21.9 Anxiety disorder F41.9
[2020-11-12] MEDS ORDERED: MELATONIN 3 MG TAB PO PRN (16:35)
[2020-11-12] MEDS ORDERED: hydrOXYzine HCl 25 MG TAB PO PRN (19:40)
--- NOTE | 2020-11-12 20:46 | Billing Data ---
Date of Service November 12, 2020 Coding Level of Care Code 64206 Initial Inpt Care Lvl 3
[2020-11-12] MEDS ORDERED: LORazepam 0.25 MG/0.5 ML VIAL IV STA (21:35)
--- NOTE | 2020-11-12 22:18 | Electrocardiogram Report ---
Test Reason : Blood Pressure : / mmHG Vent. Rate : 141 BPM Atrial Rate : 107 BPM P-R Int : 000 ms QRS Dur : 112 ms QT Int : 312 ms P-R-T Axes : 000 111 039 degrees QTc Int : 477 ms Poor data quality, interpretation may be adversely affected Atrial fibrillation with rapid ventricular response Right bundle branch block Abnormal ECG When compared with ECG of 18-OCT-2016 02:10, Atrial fibrillation has replaced Sinus rhythm Right bundle branch block is now Present Confirmed by Dylan Stover ([id number]) on 11/12/2020 10:17:53 PM Referred By: REFERRED SELF Confirmed By:Dylan Stover
[2020-11-13] MEDS: NSS + 20MEQ KCL 20 MEQ/1,000 ML BAG IV SCH (04:31)
[2020-11-13 06:11] LABS: Hemoglobin 9.8 g/dL (12.0-16.0); Mean Corpuscular Hgb Conc 33.8 g/dL (32-36); Mean Corpuscular Volume 85.8 fL (80-100); Mean Platelet Volume 8.1 fL (7.4-10.4); Platelet Count 226 K/uL (130-400); RDW Coefficient of Variation 12.8 % (11.5-14.5); RDW Standard Deviation 40.8 fL (36.4-46.3); Red Blood Count 3.38 M/uL (4.2-5.4); White Blood Count 3.59 K/uL (4.8-10.8)
[2020-11-13 06:37] LABS: Calcium 8.4 mg/dl (8.5-10.1); Creatinine Clr Calc Pharmacy 87.8 ml/min; Est GFR (African American) 105.3 ml/min; Est GFR (Non-African American) 90.9 ml/min; Magnesium 1.4 mg/dl (1.8-2.4); Potassium 4.3 mmol/L (3.5-5.1)
--- NOTE | 2020-11-13 06:58 | Electrocardiogram Report ---
Test Reason : Blood Pressure : / mmHG Vent. Rate : 099 BPM Atrial Rate : 102 BPM P-R Int : 000 ms QRS Dur : 112 ms QT Int : 308 ms P-R-T Axes : 000 090 069 degrees QTc Int : 395 ms Atrial fibrillation Right bundle branch block Abnormal ECG When compared with ECG of 11-NOV-2020 18:12, No significant change was found Confirmed by Dylan Stover ([id number]) on 11/13/2020 6:58:31 AM Referred By: REFERRED SELF Confirmed By:Dylan Stover
[2020-11-13] MEDS: FOLIC ACID 1 MG TAB PO SCH (09:18)
[2020-11-13] MEDS: THIAMINE HCL 100 MG TAB PO SCH (09:18)
[2020-11-13] MEDS: MAGNESIUM SULFATE / D5W 1 GM/100 ML BAG IV SCH ×4 (09:18→12:35)
[2020-11-13] MEDS: CHOLECALCIFEROL 1,000 UNITS 25 MCG TAB PO SCH (09:19)
[2020-11-13] MEDS: METOPROLOL TARTRATE 25 MG TAB PO SCH ×2 (09:19→13:32)
[2020-11-13] MEDS: PANTOprazole 40 MG TAB PO SCH ×2 (09:19→20:32)
[2020-11-13] MEDS: ASPIRIN 81 MG ECTAB PO SCH (09:19)
[2020-11-13] MEDS: lisinopril 40 MG TAB PO SCH (09:19)
[2020-11-13] MEDS: ATORVASTATIN 10 MG TAB PO SCH (09:20)
[2020-11-13] MEDS: VITAMIN B COMPLEX TAB PO SCH (09:20)
--- NOTE | 2020-11-13 09:23 | Cardiology Consultation ---
Date of Consultation November 13, 2020 Assessment & Plan (1) Atrial fibrillation with RVR: (2) Alcohol use disorder: (3) Bicuspid aortic valve: (4) TIA (transient ischemic attack): (5) Hypertension: (6) Anticoagulant long-term use: 1. Atrial fibrillation: She presents with acute onset of atrial fibrillation, the duration is not clear although it is not longstanding based on electrocardiograms earlier this year. Rate control is reasonably good with low- dose beta-blockade although she does have some high rates and I think this is an appropriate initial treatment, she may convert spontaneously to sinus rhythm but if not after about a month we can convert the rhythm electrically. She should be on an anticoagulant other than aspirin over the long run. 2. Alcohol use: This can certainly be a contributing factor to atrial fibrillation although since atrial fibrillation is common in this age group it certainly is not necessarily a cause. 3. Bicuspid aortic valve: She has a bicuspid aortic valve with an echocardiogram earlier this year which did not show a significant gradient. Although not likely to have change it would be reasonable to do another echocardiogram. 4. History of TIA: I am not sure the cause of her TIAs were specifically determined, no stroke was found on evaluation however I am not sure that would eliminate the possibility of tiny embolic events as a cause. She was felt to have small vessel disease and is on aspirin, being on aspirin increases the risk of bleeding substantially on an anticoagulant and she certainly needs an anticoagulant. We should confirm with neurology that they would like her to be on a platelet inhibitor in addition to an anticoagulant. 5. Hypertension: She has a history of hypertension and is on amlodipine and lisinopril and her blood pressure is well regulated. I would prefer to increase her beta-blockade or add diltiazem rather than amlodipine given her current situation. I will make those adjustments. 6. Anticoagulation: She should be an anticoagulant although her recent hemoglobin had dropped, I do not know if this is dilutional (such as above an IV site, other lab values suggest that) or if she is bleeding. If it is not felt that she is bleeding I would start Eliquis 5 mg twice a day but I have not done that. History of Present Illness Reason for Consultation: Atrial fibrillation Attending Physician: Nitin Ceballos MD History of Present Illness This is a 70-year-old woman with a history of hypertension, dyslipidemia, osteoarthritis, intermittent longstanding diarrhea and a bicuspid aortic valve identified on echocardiography April 09, 2020. This was associated with normal left ventricular function and minimal aortic stenosis. She did have trace mitral regurgitation at that time. A prior echocardiogram 1000 2013 and her gradient did slightly increase, the gradient in March 2020 was 18 mmHg maximum with a calculated valve area of 2.2 cm. Interestingly she also has a history of TIA and is on aspirin, in retrospect perhaps this was cardioembolic although I believe neurology has not identified a specific stroke and this may be due to migraine issues. On presentation November 11, 2020 and electrocardiogram done at 1812 showed atrial fibrillation with a rapid heart rate of 140 bpm and a left bundle branch block pattern. A follow-up electrocardiogram November 12, 2020 at 1445 showed a better controlled heart rate of 99 bpm with continued right bundle branch block. In comparison an electrocardiogram done March 29, 2020 showed sinus rhythm at 92 bpm with right bundle branch block. She does have a history of excessive alcohol intake which could be contributory. Here she remains on aspirin, she is now on metoprolol tartrate 25 mg 3 times daily for rate control although an anticoagulant has not been started as yet. She remains unaware of her atrial fibrillation and overall feels well from the cardiovascular standpoint. She is tolerating her medications well. Allergies Allergy/AdvReac Type Severity Reaction Status Date / Time bacitracin Allergy Mild ITCHING Verified 11/11/20 20:41 neomycin Allergy Mild ITCHING Verified 11/11/20 20:41 polymyxin B Allergy Mild ITCHING Verified 11/11/20 20:41 Sulfa (Sulfonamide Allergy Mild RASH Verified 11/11/20 20:41 Antibiotics) amoxicillin AdvReac Intermediate DIARRHEA Verified 11/11/20 20:41 clavulanic acid AdvReac Intermediate DIARRHEA Verified 11/11/20 20:41 Home Medications Medication Instructions Recorded Confirmed Type cetirizine 10 mg tablet (Zyrtec) 10 mg PO DAILY 08/09/18 11/11/20 History propylene glycol 0.6 % eye drops 1 drp OPHTHALMIC (EYE) DIRECTED 08/09/18 11/11/20 History PRN estradiol 10 mcg vaginal tablet 5 mcg VAGINAL 2XWK tab 04/17/19 11/11/20 History (Yuvafem) lisinopril 40 mg tablet 40 mg PO DAILY #90 tab 01/30/20 11/11/20 Rx hydroxyzine HCl 25 mg tablet 50 mg PO HS PRN 30 Days #60 tab 04/14/20 11/11/20 Rx atorvastatin 10 mg tablet 10 mg PO DAILY #90 tab 06/15/20 11/11/20 Rx amlodipine 10 mg tablet 10 mg PO DAILY #90 tab 08/30/20 11/11/20 Rx omeprazole 20 mg capsule,delayed 20 mg PO BID #180 cap 09/10/20 11/11/20 Rx release aspirin 81 mg tablet,delayed 81 mg PO DAILY #90 tab 11/05/20 11/11/20 Rx release (Adult Aspirin Regimen) vitamin B complex 1 tab PO DAILY #30 tab 11/05/20 11/11/20 Rx cholecalciferol (vitamin D3) 50 100 mcg PO QAM 11/11/20 11/11/20 History mcg (2,000 unit) tablet (Vitamin D3) eszopiclone 2 mg tablet 2 mg PO HS 11/11/20 11/11/20 History Patient History Medical History (Updated 11/13/20 @ 09:17 by Brenton Sosa MD) Contracture of finger joint Gastroesophageal reflux disease Headache Insomnia Mitral valve disorder Osteopenia Raynauds phenomenon Tubular adenoma of colon Vitamin D deficiency Surgical History Hx of section Hx of colonoscopy Hx of hand surgery Hx of tonsillectomy Family History Mother , age 61 of an [place] Dyslipidemia Heart disease Stroke Myocardial infarction Aunt Lung cancer Uncle Lung cancer Father , at 67 of heart failure Heart disease Daughter Migraine Grandmother (Maternal) Myocardial infarction Denies family history of Ovarian cancer Prostate cancer Breast cancer Colorectal cancer Social History Smoking Status: Former smoker Tobacco Type: Cigarettes Age Started Using Tobacco: 18; Age Quit Using Tobacco: 36; packs per day: 1; Years Smoked: 18; Cigarettes Per Day: 20 a day; Number of Years Since Quit: 30; Second Hand Exposure: No; Hx Alcohol Use: Yes Alcohol type: beer and wine Alcohol type Comment: 3-4 Alcohol Intake Frequency Comment: patient has 3 or 4 drinks of beer and/or wine per day and has been doing t Hx Substance Use: No Preferred Language: Latvian Communication Ability: Effective Visual Impairment: No Limitations Hearing Ability: Normal Pants Busheler Required: No Beliefs That Will Affect Care: None marital status: Current Living Situation: Spouse current occupational status: retired 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 HEENT: Unremarkable Neck: No jugular venous distention, carotid pulses are irregular but otherwise normal and equal bilaterally without bruits. Pulmonary: Clear to auscultation bilaterally. Cardiac: Irregular rapid rhythm with no murmur that I can appreciate, gallop or rub. Abdomen: Soft, nontender with normal bowel sounds. Extremities: No edema. Distal pulses intact. Neurologic: No focal findings. Gait is steady. Skin: No rash, ecchymoses or petechiae. Results & Data ([facility]) Vital Signs (Past 12 Hours) Vital Signs Temp Pulse Resp BP Pulse Ox 11/13/20 07:45 37.3 C 108 H 20 129/81 94 11/13/20 03:21 36.4 C L 98 H 20 123/82 96 11/12/20 22:53 36.9 C 88 20 135/81 98 Laboratory Results CBC 11/13/20 Range/Units 05:41 WBC 3.59 L (4.8-10.8) K/uL RBC 3.38 L (4.2-5.4) M/uL Hgb 9.8 L (12.0-16.0) g/dL Hct 29.0 L (37-47) % Plt Count 226 (130-400) K/uL Comprehensive Metabolic Panel 11/13/20 Range/Units 05:41 Sodium 135 L (136-145) mmol/L Potassium 4.3 (3.5-5.1) mmol/L Chloride 108 H (98-107) mmol/L Carbon Dioxide 21 (21-32) mmol/L BUN 6 L (7-18) mg/dl Creatinine 0.63 (0.6-1.2) mg/dl Glucose 88 (70-99) mg/dl Calcium 8.4 L (8.5-10.1) mg/dl Intake and Output 11/12/20 11/13/20 11/13/20 22:59 06:59 14:59 Intake Total 1060.417 / 3520.834 1460.417 / 3520.834 383.333 / 383.333 Balance 1060.417 / 3520.834 1460.417 / 3520.834 383.333 / 383.333 Intake: IV 860.417 / 2820.834 960.417 / 2820.834 383.333 / 383.333 Nss + 20Meq KCl 20 meq In 1,000 860.417 / 2820.834 960.417 / 2820.834 383.333 / 383.333 ml @ 125 mls/hr IV .Q8H AYDEE Rx #:[id number] Oral 200 / 700 500 / 700 Other: Weight 78.3 kg Weight Measurement Method Standing Scale Diagnostic Findings Telemetry: Atrial fibrillation with a rapid heart rate at times, never slow. PG Care Time/CCT Total # of Minutes Spent Total Time Spent with Patient: Total time spent is greater than 50% in coordination of care (as documented) at patient's floor/unit and/or counseling patient: Coding Level of Care Code 49813 Initial Inpt Care Lvl 3 Diagnoses Atrial fibrillation with RVR I48.91 Alcohol use disorder Bicuspid aortic valve Q23.1 TIA (transient ischemic attack) G45.9 Hypertension I10 Anticoagulant long-term use Z79.01
--- NOTE | 2020-11-13 09:39 | XCELERA ---
[id number]
[2020-11-13] MEDS ORDERED: ESZOPICLONE 1 MG TAB PO PRN (11:02)
--- NOTE | 2020-11-13 12:57 | Gastrointestinal Consultation ---
Date of Consultation November 13, 2020 Assessment & Plan (1) Diarrhea: 70 yo female with ETOH abuse admitted with acute on chronic diarrhea as well as hyponatremia and electrolyte derangements. Chronic use of NSAIDs. Will arrange a colonoscopy to be done on Sunday to r/o IBD, microscopic colitis, etc. Please order prep to start tomorrow. clear liquids tomorrow. Discussed with primary service. Correction of electrolyte derangements per primary service. Watch closely for ETOH withdrawal. (2) Alcohol use disorder: (3) Atrial fibrillation with RVR: (4) Hyponatremia: History of Present Illness Reason for Consultation: diarrhea Attending Physician: Nitin Ceballos MD History of Present Illness 70 yo female with HTN and GERD as well as chronic ETOH use (2+ glasses of wine and 6-8 beers every day) admitted with complaints of worsening of her chronic diarrhea. She tells me that she has had problems with intermittent bouts of diarrhea since at least last august. No inciting event at that time that she recalls. Would have 2-3 day sof loose stools then go back to normal BMs for a period of time. Seemed to happen every few weeks. No blood. Some associated abd crmping which would then subside. Over the last 2 weeks she has noted increase in frequency. up to 20 times a day per patient. No blood. Started to feel weak 7-10 days ago. Saw her PCP and referral placed to GI. She was supposed to be seen yesterday in the office but canceled and went to the ER. Noted to be hyponatremic with electrolyte derangements on admission. C diff is negative. Stool culture is pending. No recent abx. No changes to her meds. No artificial sweeteners. Does take Aleve most days of the week for rotator cuff problems. She had a colonoscopy with [facility] in 2018 for screening purposes. No note of IBD at that time. Was not having diarrhea then. Last ETOH was just prior to admission. Has been "trying to cut back" over the last 5 days. Allergies Allergy/AdvReac Type Severity Reaction Status Date / Time bacitracin Allergy Mild ITCHING Verified 11/11/20 20:41 neomycin Allergy Mild ITCHING Verified 11/11/20 20:41 polymyxin B Allergy Mild ITCHING Verified 11/11/20 20:41 Sulfa (Sulfonamide Allergy Mild RASH Verified 11/11/20 20:41 Antibiotics) amoxicillin AdvReac Intermediate DIARRHEA Verified 11/11/20 20:41 clavulanic acid AdvReac Intermediate DIARRHEA Verified 11/11/20 20:41 Home Medications Medication Instructions Recorded Confirmed Type cetirizine 10 mg tablet (Zyrtec) 10 mg PO DAILY 08/09/18 11/11/20 History propylene glycol 0.6 % eye drops 1 drp OPHTHALMIC (EYE) DIRECTED 08/09/18 11/11/20 History PRN estradiol 10 mcg vaginal tablet 5 mcg VAGINAL 2XWK tab 04/17/19 11/11/20 History (Yuvafem) lisinopril 40 mg tablet 40 mg PO DAILY #90 tab 01/30/20 11/11/20 Rx hydroxyzine HCl 25 mg tablet 50 mg PO HS PRN 30 Days #60 tab 04/14/20 11/11/20 Rx atorvastatin 10 mg tablet 10 mg PO DAILY #90 tab 06/15/20 11/11/20 Rx amlodipine 10 mg tablet 10 mg PO DAILY #90 tab 08/30/20 11/11/20 Rx omeprazole 20 mg capsule,delayed 20 mg PO BID #180 cap 09/10/20 11/11/20 Rx release aspirin 81 mg tablet,delayed 81 mg PO DAILY #90 tab 11/05/20 11/11/20 Rx release (Adult Aspirin Regimen) vitamin B complex 1 tab PO DAILY #30 tab 11/05/20 11/11/20 Rx cholecalciferol (vitamin D3) 50 100 mcg PO QAM 11/11/20 11/11/20 History mcg (2,000 unit) tablet (Vitamin D3) eszopiclone 2 mg tablet 2 mg PO HS 11/11/20 11/11/20 History Patient History Medical History (Updated 11/13/20 @ 09:17 by Brenton Sosa MD) Contracture of finger joint Gastroesophageal reflux disease Headache Insomnia Mitral valve disorder Osteopenia Raynauds phenomenon Tubular adenoma of colon Vitamin D deficiency Surgical History Hx of section Hx of colonoscopy Hx of hand surgery Hx of tonsillectomy Family History Mother , age 61 of an CA Dyslipidemia Heart disease Stroke Myocardial infarction Aunt Lung cancer Uncle Lung cancer Father , at 67 of heart failure Heart disease Daughter Migraine Grandmother (Maternal) Myocardial infarction Denies family history of Ovarian cancer Prostate cancer Breast cancer Colorectal cancer Social History Smoking Status: Former smoker Tobacco Type: Cigarettes Age Started Using Tobacco: 18; Age Quit Using Tobacco: 36; packs per day: 1; Years Smoked: 18; Cigarettes Per Day: 20 a day; Smoking End Date: quit 35 yrs ago; Number of Years Since Quit: 30; Second Hand Exposure: No; Do You Dip or Chew Tobacco: No; Tobacco Cessation Education Requested by Patient: No Hx Alcohol Use: Yes Alcohol type: beer and wine Alcohol type Comment: 3-4 Alcohol Intake Frequency Comment: patient has 3 or 4 drinks of beer and/or wine per day and has been doing t Hx Substance Use: No Preferred Language: Turkish Communication Ability: Effective Visual Impairment: No Limitations Hearing Ability: Normal 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: No Beliefs That Will Affect Care: None marital status: Current Living Situation: Spouse current occupational status: retired 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 How many Children do You have: 1 Feels Safe at Home: Yes Safety Concerns: Feels Safe At This Time Childhood Exposure to Second-Hand Smoke: Yes (father) Physical Activity Frequency: 3-4 Times per Week Seatbelt Use: always Sunscreen Use: Yes Assistive Devices: None Review of Systems Review of Systems: 12 systems reviewed and negative except as noted Physical Exam Constitutional: WD/WN, vitals as above rambling speech Respiratory: normal respiratory effort, lungs clear to auscultation Cardiovascular: Rate/Rhythm: regular rhythm and + tachycardic Gastrointestinal (Abdomen): Inspection/Auscultation: abdomen normal to inspection and normal bowel sounds obese, soft, non-tender Results & Data ([facility]) Vital Signs (Past 12 Hours) Vital Signs Temp Pulse Resp BP Pulse Ox 11/13/20 10:57 37.1 C 96 H 19 113/77 96 11/13/20 07:45 37.3 C 108 H 20 129/81 94 11/13/20 03:21 36.4 C L 98 H 20 123/82 96
--- NOTE | 2020-11-13 17:47 | Hospitalist Progress Note ---
Date of Service November 13, 2020 Assessment & Plan (1) Atrial fibrillation with RVR: Plan: New diagnosis this admission. Chads-Vasc of 3 (age, gender, and HTN). Her possible TIA was actually a migraine per neurology (see note from 05/13/2020). Normal TSH. Alcohol consumption likely playing a role. - Started metoprolol 25 mg PO TID -> Move to 50 mg PO BID for tonight to uptitrate. - Metoprolol IV PRN for HR >110 - Cardiology consulted -> Appreciate recs - TTE ordered. Normal EF in 03/2020. EF remains normal today on echo. Bicuspid aortic valve without any change noted. - She is amenable to anticoagulation after discussing risks:benefits. Will wait for anticoagulation until after her colonoscopy on 11/15/2020. Will start Eliquis 5 mg PO BID then. (2) Hyponatremia: Plan: Hypovolemic hyponatremia. - Likely from diarrhea. - Improving with IV fluids and treatment of diarrhea. Na now 135. - Monitor (3) Diarrhea: Plan: Ongoing relapsing-remitting for about [address] Metz at [facility]. Will have a few days of diarrhea most months, though she had at least 15 episodes prior to admission. Was planning on seeing Dr. Metz on 11/12, but was admitted instead. - C. diff negative. Stool culture from 11/12 grew Campylobacter. - Imodium PRN - GI consulted for thought of microscopic colitis and consideration of colonoscopy -> Will pursue colonoscopy on Sunday. Clear liquids tomorrow, then prep in the evening. (4) Alcohol use disorder: Plan: Per report, drinks as much as 6 alcoholic beverages in a day; however, down to 1-2 in last few days, and would like to reduce overall consumption to that level going forward. - On my interview today (11/13), no signs/symptoms of withdrawal. - Continue CIWA for now (5) Hypertension: Plan: BP today is 130/90. - Continue ACEi - Hold amlodipine for now; restart as needed (6) Vitamin B12 deficiency: Plan: B12 was 395 in 05/2020. Repeat this admission was 475. (7) Classic migraine with aura: Plan: Long-standing issue. Follows with Dr. Grant. - Monitor (8) Hyperlipidemia: Plan: - Continue statin - Continue ASA (for white matter spots per neurology note from 05/13/2020) -> Can discuss with neurology if she would need this while also on anticoagulation. (9) Insomnia: Plan: Takes Lunesta at baseline, but would like to stop in general. However, after a tough night, she feels she would like to have it available in the hospital. Sleep plan: 1) Melatonin PRN first 2) Hydroxyzine & Lunesta after 30 minutes if melatonin doesn't work. 3) Ativan 0.25 mg PO after 30 minutes if #2 doesn't work. (She reports she pairs hydroxyzine & Lunesta every night (plus several alcoholic beverages), so I am not overly concerned about respiratory depression.) (10) Gastroesophageal reflux disease: Plan: - Continue PPI (11) Anxiety disorder: Plan: - Continue home hydroxyzine PRN (12) DVT prophylaxis: Plan: Lovenox 40 mg SQ daily (tomorrow only; hold for colonoscopy) Admission and Anticipated Discharge Date Admission Date: November 11, 2020 Subjective Very upset today because of trouble sleeping last night. Only a few episodes of diarrhea, but having some bloody streaking to it at times. Other times yellow. Reports no fevers/chills, chest pain, shortness of breath, abdominal pain, nausea, or vomiting. Physical Exam Constitutional: WD/WN, vitals as above Eyes: EOM intact bilaterally; no conjunctival abnormality ENMT: external ear and nose normal, oropharynx normal Neck: trachea midline, no thyromegaly normal visual inspection Respiratory: normal respiratory effort, lungs clear to auscultation no respiratory distress Cardiovascular: RRR, no murmur, no edema Rate/Rhythm: + tachycardic and + irregularly irregular Gastrointestinal (Abdomen): Inspection/Auscultation: abdomen normal to inspection; abdomen not distended Musculoskeletal: no cyanosis or clubbing, extremities motor strength 5/5 Skin: no rashes, warm and dry Neurologic: moves all extremities and awake Motor/Sensory: no tremor (None in hands when outstretched) and no fasciculations (None on tongue) Psychiatric: Orientation: alert, oriented to person and cooperative Results & Data Results & Data ([facility]) Vital Signs (Past 12 Hours) Vital Signs Temp Pulse Resp BP BP Pulse Ox 10/02/21 16:41 37.1 C 115 H 18 129/89 99 11/13/20 10:57 37.1 C 96 H 19 113/77 96 11/13/20 07:45 37.3 C 108 H 20 129/81 94 PG Care Time/CCT Total # of Minutes Spent Total Time Spent with Patient: Total time spent is greater than 50% in coordination of care (as documented) at patient's floor/unit and/or counseling patient: Coding Level of Care Code 25742 Subseq Hosp Care Lvl 3 Diagnoses Atrial fibrillation with RVR I48.91 Hyponatremia E87.1 Diarrhea R19.7 Alcohol use disorder Hypertension I10 Vitamin B12 deficiency E53.8 Classic migraine with aura G43.109 Hyperlipidemia E78.5 Insomnia G47.00 Gastroesophageal reflux disease K21.9 Anxiety disorder F41.9 DVT prophylaxis Z29.9
[2020-11-13] MEDS ORDERED: LORazepam 0.5 MG TAB PO PRN (18:01)
[2020-11-13] MEDS ORDERED: MELATONIN 3 MG TAB PO PRN (18:02)
[2020-11-13] MEDS: METOPROLOL TARTRATE 50 MG TAB PO SCH (20:32)
[2020-11-13] MEDS: hydrOXYzine HCl 25 MG TAB PO PRN (21:41)
[2020-11-14 08:12] LABS: Hematocrit (blood only) 33.1 % (37-47); Hemoglobin 10.9 g/dL (12.0-16.0); Mean Corpuscular Hemoglobin 28.8 pg (25-34); Mean Corpuscular Hgb Conc 32.9 g/dL (32-36); Mean Corpuscular Volume 87.3 fL (80-100); Mean Platelet Volume 8.4 fL (7.4-10.4); Platelet Count 263 K/uL (130-400); RDW Coefficient of Variation 12.7 % (11.5-14.5); RDW Standard Deviation 40.9 fL (36.4-46.3); Red Blood Count 3.79 M/uL (4.2-5.4); White Blood Count 4.23 K/uL (4.8-10.8)
[2020-11-14] MEDS: METOPROLOL TARTRATE 50 MG TAB PO SCH (08:22)
[2020-11-14] MEDS: AZITHROMYCIN 250 MG TAB PO SCH (08:22)
[2020-11-14] MEDS: ASPIRIN 81 MG ECTAB PO SCH (08:22)
[2020-11-14] MEDS: ATORVASTATIN 10 MG TAB PO SCH (08:22)
[2020-11-14] MEDS: lisinopril 40 MG TAB PO SCH (08:23)
[2020-11-14] MEDS: THIAMINE HCL 100 MG TAB PO SCH (08:23)
[2020-11-14] MEDS: CHOLECALCIFEROL 1,000 UNITS 25 MCG TAB PO SCH (08:23)
[2020-11-14] MEDS: VITAMIN B COMPLEX TAB PO SCH (08:23)
[2020-11-14] MEDS: PANTOprazole 40 MG TAB PO SCH ×2 (08:23→21:32)
[2020-11-14] MEDS: FOLIC ACID 1 MG TAB PO SCH (08:23)
[2020-11-14 08:39] LABS: Albumin Level 2.6 gm/dl (3.4-5.0); BUN Creatinine Ratio 8.4 (10-20); Calcium 8.6 mg/dl (8.5-10.1); Creatinine Clr Calc Pharmacy 68.4 ml/min; Est GFR (African American) 85.3 ml/min; Est GFR (Non-African American) 73.6 ml/min; Magnesium 1.9 mg/dl (1.8-2.4)
[2020-11-14 08:42] LABS: Albumin Globulin Ratio 0.8 (0.9-2); Bilirubin,Total 0.4 mg/dl (0.2-1); Globulin 3.4 gm/dl (2.5-4.0)
--- NOTE | 2020-11-14 12:16 | Hospitalist Progress Note ---
Date of Service November 14, 2020 Assessment & Plan (1) Atrial fibrillation with RVR: Plan: New diagnosis this admission. Chads-Vasc of 3 (age, gender, and HTN). Her possible TIA was actually a migraine per neurology (see note from 05/13/2020). Normal TSH. Alcohol consumption likely playing a role. Atrial fibrillation with RVR with RBBB, POA. - Started metoprolol 25 mg PO TID -> Moveed to 50 mg PO BID which seems to be controlling her fairly well (rates ~100 bpm). - Metoprolol IV PRN for HR >110 - Cardiology consulted -> Appreciate recs - TTE ordered. Normal EF in 03/2020. EF remains normal today on echo. Bicuspid aortic valve without any change noted. - She is amenable to anticoagulation after discussing risks:benefits. Will wait for anticoagulation until after her colonoscopy on 11/15/2020. Will start Eliquis 5 mg PO BID then. (2) Hyponatremia: Plan: Hypovolemic hyponatremia. - Likely from diarrhea. - Improving with IV fluids and treatment of diarrhea. Na now 134. - Monitor (3) Diarrhea: Plan: Ongoing relapsing-remitting for about [address] Metz at [facility]. Will have a few days of diarrhea most months, though she had at least 15 episodes prior to admission. Was planning on seeing Dr. Metz on 11/12, but was admitted instead. - C. diff negative. Stool culture from 11/12 grew Campylobacter. Started azithromycin 500 mg PO daily x 3 days on 11/14. (Last dose on 11/16/2020.) - Imodium PRN - GI consulted for thought of microscopic colitis and consideration of colonoscopy -> Will pursue colonoscopy on Sunday. Clear liquids today, then prep in the evening and tomorrow AM. (4) Alcohol use disorder: Plan: Per report, drinks as much as 6 alcoholic beverages in a day; however, down to 1-2 in last few days, and would like to reduce overall consumption to that level going forward. - On my interview today (11/14), no signs/symptoms of withdrawal. - Continue CIWA for now (5) Hypertension: Plan: BP today is 130/75. - Continue ACEi - Hold amlodipine for now; use beta-chuy instead. (6) Vitamin B12 deficiency: Plan: B12 was 395 in 05/2020. Repeat this admission was 475. (7) Classic migraine with aura: Plan: Long-standing issue. Follows with Dr. Grant. - Monitor (8) Hyperlipidemia: Plan: - Continue statin - Continue ASA (for white matter spots per neurology note from 05/13/2020) -> Discussed with Dr. Grant on 11/14. As long as bleeding risk is low, he feels ASA adds better small-vessel disease protection than anticoagulation. (9) Insomnia: Plan: Takes Lunesta at baseline, but would like to stop in general. However, after a tough night, she feels she would like to have it available in the hospital. Sleep plan: 1) Melatonin PRN first 2) Hydroxyzine & Lunesta after 30 minutes if melatonin doesn't work. 3) Ativan 0.25 mg PO after 30 minutes if #2 doesn't work. (10) Gastroesophageal reflux disease: Plan: - Continue PPI (11) Anxiety disorder: Plan: - Continue home hydroxyzine PRN (12) DVT prophylaxis: Plan: Lovenox 40 mg SQ daily (today only; hold for colonoscopy tomorrow) Admission and Anticipated Discharge Date Admission Date: November 11, 2020 Physical Exam Constitutional: WD/WN, vitals as above Eyes: EOM intact bilaterally; no conjunctival abnormality ENMT: external ear and nose normal, oropharynx normal Neck: trachea midline, no thyromegaly normal visual inspection Respiratory: normal respiratory effort, lungs clear to auscultation no respiratory distress Cardiovascular: RRR, no murmur, no edema Rate/Rhythm: + tachycardic and + irregularly irregular Gastrointestinal (Abdomen): Inspection/Auscultation: abdomen normal to inspection; abdomen not distended Musculoskeletal: no cyanosis or clubbing, extremities motor strength 5/5 Skin: no rashes, warm and dry Neurologic: moves all extremities and awake Motor/Sensory: no tremor (None in hands when outstretched) and no fasciculations (None on tongue) Psychiatric: Orientation: alert, oriented to person and cooperative Results & Data Results & Data ([facility]) Vital Signs (Past 12 Hours) Vital Signs Temp Pulse Pulse Resp BP Pulse Ox 11/14/20 11:43 37.7 C H 101 H 24 129/77 94 11/14/20 08:30 103 H 11/14/20 07:50 37.3 C 98 H 22 145/91 H 94 11/14/20 05:54 36.6 C 116 H 20 128/84 94 PG Care Time/CCT Total # of Minutes Spent Total Time Spent with Patient: Total time spent is greater than 50% in coordination of care (as documented) at patient's floor/unit and/or counseling patient: Coding Level of Care Code 85030 Subseq Hosp Care Lvl 3 Diagnoses Atrial fibrillation with RVR I48.91 Hyponatremia E87.1 Diarrhea R19.7 Alcohol use disorder Hypertension I10 Vitamin B12 deficiency E53.8 Classic migraine with aura G43.109 Hyperlipidemia E78.5 Insomnia G47.00 Gastroesophageal reflux disease K21.9 Anxiety disorder F41.9 DVT prophylaxis Z29.9
[2020-11-14] MEDS ORDERED: bisacodyL 5 MG TABEC PO ONE (12:30)
[2020-11-14] MEDS ORDERED: ENOXAPARIN INJ 40 MG/0.4 ML SYR SQ ONE (13:00)
[2020-11-14] MEDS: MAGNESIUM SULFATE / D5W 1 GM/100 ML BAG IV SCH ×2 (13:17→15:19)
[2020-11-14] MEDS ORDERED: NSS + 20MEQ KCL 20 MEQ/1,000 ML BAG IV SCH (15:00)
--- NOTE | 2020-11-14 16:26 | Communication Note ---
Date of Service: November 14, 2020 Stool culture is positive for campylobacter and possible E coli. Please cancel colon prep orders and allow patient to eat. Would treat with short cours eof appropriate antibiotics. Needs an outpatient colonoscopy schedule din 4-6 weeks. Please call with questions.
--- NOTE | 2020-11-14 17:50 | Cardiology Progress Note ---
Date of Service November 14, 2020 Assessment & Plan (1) Atrial fibrillation with RVR: (2) Alcohol use disorder: (3) Bicuspid aortic valve: (4) TIA (transient ischemic attack): (5) Hypertension: (6) Anticoagulant long-term use: Plan: 1. Atrial fibrillation: She presents with acute onset of atrial fibrillation, the duration is not clear although it is not longstanding based on electrocardiograms earlier this year. Rate control is reasonably good with low- dose beta-blockade although she does have some high rates and I am going to go up somewhat on her beta-blockade, she may convert spontaneously to sinus rhythm but if not after about a month we can convert the rhythm electrically. She should be on an anticoagulant other than aspirin over the long run. I will defer the timing of starting it to the primary service. 2. Alcohol use: This can certainly be a contributing factor to atrial fibrillation although since atrial fibrillation is common in this age group it certainly is not necessarily a cause. Controlling her alcohol intake would certainly be a reasonable approach. 3. Bicuspid aortic valve: She has a bicuspid aortic valve but her current echo, as well as the prior ones, do not show a significant gradient. 4. History of TIA: I am not sure the cause of her TIAs were specifically determined, no stroke was found on evaluation however I am not sure that would eliminate the possibility of tiny embolic events as a cause. She was felt to have small vessel disease and is on aspirin, being on aspirin increases the risk of bleeding substantially on an anticoagulant and she certainly needs an anticoagulant. We should confirm with neurology that they would like her to be on a platelet inhibitor in addition to an anticoagulant. 5. Hypertension: She has a history of hypertension and is on amlodipine and lisinopril. I would prefer to increase her beta-blockade or add diltiazem rather than amlodipine given her current situation. I will increase her metoprolol tartrate to 75 mg twice a day. 6. Anticoagulation: She should be an anticoagulant, I believe it was on hold for planned colonoscopy but she tells me she is not going to have a colonoscopy in the near future. If it is not felt that she is bleeding I would start Eliqu is 5 mg twice a day but I have not done that. Admission and Anticipated Discharge Date Admission Date: November 11, 2020 Subjective She continues to feel well from the cardiac standpoint, she remains unaware of her rhythm and seems to be tolerating her medications well. Physical Exam Physical Exam: Constitutional: Alert, cooperative and in no distress. HEENT: Unremarkable Neck: No jugular venous distention, carotid pulses are irregular but otherwise normal and equal bilaterally without bruits. Pulmonary: Clear to auscultation bilaterally. Cardiac: Irregular rhythm with no murmur, gallop or rub. Abdomen: Soft, nontender with normal bowel sounds. Extremities: No edema. Distal pulses intact. Neurologic: No focal findings. Gait is steady. Skin: No rash, ecchymoses or petechiae. Results & Data ([facility]) Vital Signs (Past 12 Hours) Vital Signs Temp Pulse Pulse Resp BP Pulse Ox 11/14/20 15:52 37.1 C 105 H 20 141/91 H 96 11/14/20 11:43 37.7 C H 101 H 24 129/77 94 11/14/20 08:30 103 H 11/14/20 07:50 37.3 C 98 H 22 145/91 H 94 11/14/20 05:54 36.6 C 116 H 20 128/84 94 Laboratory Results Cardiac Enzymes 11/14/20 Range/Units 07:15 AST 14 L (15-37) U/L CBC 11/14/20 Range/Units 07:15 WBC 4.23 L (4.8-10.8) K/uL RBC 3.79 L (4.2-5.4) M/uL Hgb 10.9 L (12.0-16.0) g/dL Hct 33.1 L (37-47) % Plt Count 263 (130-400) K/uL Comprehensive Metabolic Panel 11/14/20 Range/Units 07:15 Sodium 134 L (136-145) mmol/L Potassium 4.0 (3.5-5.1) mmol/L Chloride 101 (98-107) mmol/L Carbon Dioxide 24 (21-32) mmol/L BUN 7 (7-18) mg/dl Creatinine 0.81 (0.6-1.2) mg/dl Glucose 95 (70-99) mg/dl Calcium 8.6 (8.5-10.1) mg/dl AST 14 L (15-37) U/L ALT 22 (12-78) U/L Alkaline Phosphatase 70 (45-117) U/L Total Protein 6.0 L (6.4-8.2) gm/dl Albumin 2.6 L (3.4-5.0) gm/dl Intake and Output 11/14/20 11/14/20 11/14/20 06:59 14:59 22:59 Intake Total 200 / 1963.333 840 / 1193.333 353.333 / 1193.333 Balance 200 / 1963.333 840 / 1193.333 353.333 / 1193.333 Intake: IV 353.333 / 353.333 Magnesium Sulfate / D5w 1 gm In 198.333 / 198.333 100 ml @ 50 mls/hr IV Q2H AYDEE Rx#:[id number] Nss + 20Meq KCl 20 meq In 1,000 155 / 155 ml @ 75 mls/hr IV .[id number] AYDEE Rx#:[id number] Oral 200 / 1180 840 / 840 Other: Weight 78.6 kg Weight Measurement Method Standing Scale Diagnostic Findings Telemetry: Atrial fibrillation, heart rate in the low 100s for the most part Echocardiogram: Normal LV function, no significant aortic valve gradient PG Care Time/CCT Total # of Minutes Spent Total Time Spent with Patient: Total time spent is greater than 50% in coordinat ion of care (as documented) at patient's floor/unit and/or counseling patient: Coding Level of Care Code 37409 Subseq Hosp Care Lvl 3 Diagnoses Atrial fibrillation with RVR I48.91 Alcohol use disorder Bicuspid aortic valve Q23.1 TIA (transient ischemic attack) G45.9 Hypertension I10 Anticoagulant long-term use Z79.01
[2020-11-14] MEDS ORDERED: POLYETHYLENE (MIRALAX) 17 GM PACK PO SCH (20:00)
[2020-11-14] MEDS: METOPROLOL TARTRATE 25 MG TAB PO SCH (21:30)
[2020-11-14] MEDS: hydrOXYzine HCl 25 MG TAB PO PRN (22:01)
[2020-11-15 07:04] LABS: Hematocrit (blood only) 32.8 % (37-47); Hemoglobin 11.3 g/dL (12.0-16.0); Mean Corpuscular Hemoglobin 29.7 pg (25-34); Mean Corpuscular Hgb Conc 34.5 g/dL (32-36); Mean Corpuscular Volume 86.1 fL (80-100); Platelet Count 256 K/uL (130-400); RDW Coefficient of Variation 12.7 % (11.5-14.5); RDW Standard Deviation 40.3 fL (36.4-46.3); Red Blood Count 3.81 M/uL (4.2-5.4); White Blood Count 3.08 K/uL (4.8-10.8)
[2020-11-15 07:37] LABS: BUN Creatinine Ratio 8.5 (10-20); Creatinine Clr Calc Pharmacy 68.6 ml/min; Est GFR (African American) 86.6 ml/min; Est GFR (Non-African American) 74.7 ml/min; Magnesium 2.1 mg/dl (1.8-2.4); Potassium 3.8 mmol/L (3.5-5.1)
[2020-11-15] MEDS: THIAMINE HCL 100 MG TAB PO SCH (07:43)
[2020-11-15] MEDS: PANTOprazole 40 MG TAB PO SCH (07:43)
[2020-11-15] MEDS: ATORVASTATIN 10 MG TAB PO SCH (07:43)
[2020-11-15] MEDS: METOPROLOL TARTRATE 25 MG TAB PO SCH (07:44)
[2020-11-15] MEDS: AZITHROMYCIN 250 MG TAB PO SCH (07:44)
[2020-11-15] MEDS: VITAMIN B COMPLEX TAB PO SCH (07:44)
[2020-11-15] MEDS: lisinopril 40 MG TAB PO SCH (07:44)
[2020-11-15] MEDS: CHOLECALCIFEROL 1,000 UNITS 25 MCG TAB PO SCH (07:44)
[2020-11-15] MEDS: FOLIC ACID 1 MG TAB PO SCH (07:44)
[2020-11-15] MEDS: ASPIRIN 81 MG ECTAB PO SCH (07:45)
[2020-11-15] MEDS ORDERED: APIXABAN 5 MG TABLET PO SCH (09:00)
[2020-11-15] MEDS ORDERED: CETIRIZINE HCL 10 MG TABLET PO ONE (11:50)
--- NOTE | 2020-11-15 15:04 | Discharge Summary ---
Date of Service date of admission - November 11, 2020 date of discharge - November 15, 2020 Admission HPI Per Admitting Provider Minerva Hairston is a 70-year-old female with past medical history of migraine with aura, mild aortic stenosis, tricuspid regurgitation, TIA, hyperlipidemia, h ypertension, anxiety, GERD who comes to [facility] due to feeling very weak and having worsening diarrhea for the past 3 days. She mentions that she has had ongoing intermittent diarrhea for the past year that happens about 2 to 3 days/month in which she has 2-3 bowel movements per day. However, she mentions that since Sunday she had 15-20 bowel movements per day. She has been Covid vaccinated and has not been around anyone with similar symptoms. She does say that she drinks well water at home and in the room does not believe it has been chlorinated in a while. She says she had multiple episodes of bowel incontinence. Also reports a fever of 103. Reports a tiny amount of red blood and mucus in the stool. The patient reports a 6-8 drink per day alcohol history. She does report that she has wanted to scale this back but has not been able to. Over the last 2 days she reports drinking 1 glass of wine and 1 beer per day day. She denies any loss of consciousness, confusion, nausea, vomiting, cough, shortness of breath. In the ED patient been found to be tachycardic to 130s. Per review of her EKG by myself and attending physician, official read of atrial fibrillation is thought to be inaccurate and appears more as sinus tachycardia. Patient had normal chest x-ray. She had labs showing normal white count, normal hemoglobin, normal platelet count. She had a sodium of 127, serum osmolality of 270, negative troponin, and normal TSH. Ethyl alcohol levels, urine osmolality, and urine sodium levels pending. Patient received lorazepam 1 mg IV x2, banana bag x1, normal saline 1 L fluid bolus x1, potassium chloride 10 mEq IV x2. Principal Diagnosis 1. Campylobacter Enteritis 2. Atrial Fibrillation 3. Hyponatremia Discharge Exam Gen - NAD, a/o x3 ENT - MMM Neck - no JVD Heart - irregular, s1 s2, 2/6 systolic murmur RUSB Lungs - CTA b/l Abd - soft, NT, ND, BS+ Ext - no edema, pulses 2+ b/l Discharge Data Allergies Allergy/AdvReac Type Severity Reaction Status Date / Time bacitracin Allergy Mild ITCHING Verified 11/22/20 10:19 neomycin Allergy Mild ITCHING Verified 11/22/20 10:19 polymyxin B Allergy Mild ITCHING Verified 11/22/20 10:19 Sulfa (Sulfonamide Allergy Mild RASH Verified 11/22/20 10:19 Antibiotics) amoxicillin AdvReac Intermediate DIARRHEA Verified 11/22/20 10:19 clavulanic acid AdvReac Intermediate DIARRHEA Verified 11/22/20 10:19 Consultations [facility] Procedures Performed Echocardiogram: * EF 60-65% * bicuspid aortic valve * no aortic stenosis or insufficiency Ordered Studies Chest X-Ray 11/11/20 18:04 XR chest 1V portable INDICATION: MN ^weakness . TECHNIQUE: Single frontal radiograph of the chest was obtained. Comparison: Comparison is made to chest one view 10/18/2016 FINDINGS: No lines and tubes are seen. The cardiomediastinal silhouette is normal. The lungs are clear. No evidence of pleural effusion or pneumothorax. IMPRESSION: No acute chest disease. ACT 112: Negative or not required by law. Electronically signed by: Trey De La Fuente M.D. 11/11/2020 7:08 PM Hospital Course (1) Atrial fibrillation with RVR: New diagnosis. Present on admission. Chads-Vasc of 3 (age, gender, and HTN). Thus, patient was started on Eliquis 5mg BID. TSH wnl. Initiated on metoprolol and dose titrated for optimal rate control to 75mg BID. [facility] consulted and provided garsia recommendations for her a.fib management. Echo with preserved EF. Has Bicuspid aortic valve but does not have aortic stenosis. HRs were 110-120 with walking on day of discharge, with resting HRs mostly <100 BPM. (2) Campylobacter enteritis: Stool culture grew Campylobacter jejuni. She had reported acute on chronic diarrhea. Diarrhea improved with azithromycin therapy. She will complete 1 additional dose of azithromycin at home. [facility] saw patient in consult. Colonoscopy was considered as she had reported chronic diarrhea for several months (with acute worsening in the 1-2 weeks before admission) but ultimately deferred once stool culture was positive. She was encouraged to follow-up with [facility], Dr Metz, to discuss further work-up of her chronic diarrhea issues. Infection control gave information to the patient re: the campylobacter and self-care/precautions at home. (3) Hyponatremia: Hypovolemic hyponatremia from diarrhea. Na at presentation 127. Discharge Na 136. (4) Diarrhea: Acute diarrhea 2nd to Campylobacter enteritis. Chronic diarrhea - uncertain etiology. Follow-up with [facility] as outpatient. (5) Alcohol use disorder: By report drinks up to 6 drinks/day but she had been making efforts to reduce her consumption. She did not experience any alcohol withdrawal during the stay. (6) Hypertension: She will discontinue amlodipine. She will continue lisinopril and metoprolol. BPs controlled at discharge. (7) Vitamin B12 deficiency: B12 was 395 in 05/2020. Repeat this admission was 475. (8) Classic migraine with aura: Long-standing issue. Follows with Dr. Zeyad Grant, [facility]. No issues while here. (9) Hyperlipidemia: Continue statin (10) Insomnia: Chronic issue. Takes lunesta nightly. (11) Gastroesophageal reflux disease: Continue omeprazole 20mg BID. (12) Anxiety disorder: No issues while here. Total Time Total Time Spent Total Time Spent (In Minutes): 45 Discharge Plan Discharge Items Patient Disposition: Home - Self-Care Reason For Visit: Atrial Fibrillation, Severe Diarrhea Illness Discharge Diagnosis: 1. campylobacter diarrhea infection - improving 2. new-onset atrial fibrillation 3. low sodium ("hyponatremia") - due to #1 - resolved Activity: As commented below Activity Comment: gradually increase activities over the next 5-7 days as tolerated Non-emergency contact: Primary Care Provider and Education General Manager Call non-emergency contact if: you have any medication questions, your symptoms worsen, your pain is not controlled and you have a fever Follow-up/Referrals: Brenton Sosa MD [Physician] - 12/08/20 10:30 am (see Dr Sosa in 3-4 weeks ) Thi Hill MD [Primary Care Provider] - 11/22/20 10:15 am (please see Dr Mcmahon within 1 week ) Vanesa Anderson DO [Physician] - ([facility] WILL CALL YOU WITH APPOINTMENT DATE/TIME) Diet: Low Fiber Addtl Attending Provider Instructions: Mrs Hairston, Rodrigue were admitted to the hospital for the problems listed above in "discharge diagnoses." The diarrhea was ultimately discovered to be due to campylobacter infection. This bacterium grew out on your stool culture. You received 2 days of azithromycin antibiotic while here, and you will need 1 additional dose of such on 11/16/20. [facility] team saw you in consult and they would like for you to follow- up in the next few weeks because of the chronic diarrhea problem you have been having. In addition, upon presentation to [facility], we found that you were in an abnormal heart rhythm called "atrial fibrillation" (a.fib for short). This was the likely cause of your shortness of breath in the days leading up to admission. The [facility] district or district office director saw you in consult and recommended metoprolol to slow the a.fib down and blood thinner to reduce your chances of stroke from the a.fib. On the day of discharge your heart rates are well-controlled with the metoprolol both at rest and with walking. All electrolyte abnormalities (low sodium, low potassium, etc) were fixed while here. Recommendations - 1. azithromycin antibiotic - 500mg x 1 on 11/16/20 for the campylobacter infection. 2. for the a.fib - * metoprolol 75mg twice daily -- take your first dose TONIGHT * Eliquis blood thinner 5mg twice daily -- take your first dose TONIGHT 3. check your heart rate once or twice daily at home to monitor the a.fib. If your heart rate is consistently over 100 at rest please let your doctors know and you may need your medication adjusted. 4. please stop your amlodipine. 5. see handouts on a.fib, campylobacter, etc. 6. please no alcohol while taking blood thinner medication, antibiotics, etc. Follow-up - see separate section Return to [facility] if - * you develop recurrent fevers over 100 degrees * you develop severe diarrhea again * you have dizziness or lightheadedness * you have chest pains or rapid heart beating/fluttering * you have shortness of breath * any other concerns It was our pleasure caring for you and please continue to feel better! -Dr Montano Addtl Injection Press Operator Provider Instructions: Anticoagulant (blood thinner) Instructions: Your atrial fibrillation condition is typically treated with an anticoagulant. Anticoagulants will thin your blood to help prevent blood clot formation in your heart. Your anticoagulant is "ELIQUIS." * You should take her medication exactly as directed. * Never skip a dose. * Never take a double dose. If you miss a dose, take it as soon as you remember. Call your Primary Care doctor if you experience any of the following: * Chest Pain * Sudden Shortness of Breath * Rapid or pounding heart beat * Fainting * Dizziness * Cough with blood or bloody sputum * Sweating more than normal * Bruises * Heavy or uncontrolled bleeding * Blood in your urine, stool or vomit * Black or tarry stools * Heavy nose bleeding Pending Studies at Discharge: No Stand-Alone Forms: [facility] Sm[facility] Cessation Medications and DC Order Prescriptions: New azithromycin 250 mg Tablet 500 mg PO ONCE Qty: 2 RF: 0 metoprolol tartrate 25 mg Tablet 75 mg PO BID Qty: 180 RF: 1 Eliquis 5 mg Tablet 5 mg PO BID Qty: 60 RF: 2 Continued lisinopril 40 mg tablet 40 mg PO DAILY Qty: 90 RF: 3 atorvastatin 10 mg tablet 10 mg PO DAILY Qty: 90 RF: 3 omeprazole 20 mg capsule,delayed release(DR/EC) 20 mg PO BID Qty: 180 RF: 1 aspirin [Adult Aspirin Regimen] 81 mg tablet,delayed release (DR/EC) 81 mg PO DAILY Qty: 90 RF: 3 vitamin B complex Tablet 1 tab PO DAILY Qty: 30 RF: 11 hydroxyzine HCl 25 mg tablet 50 mg PO HS PRN (Reason: insomnia) 30 Days Qty: 60 RF: 5 cetirizine [Zyrtec] 10 mg Tablet 10 mg PO DAILY RF: 0 propylene glycol 0.6 % Drops 1 drp OPHTHALMIC (EYE) DIRECTED PRN (Reason: Dry Eye(S)) RF: 0 estradiol [Yuvafem] 10 mcg tablet 5 mcg VAGINAL 2XWK RF: 0 cholecalciferol (vitamin D3) [Vitamin D3] 50 mcg (2,000 unit) Tablet 100 mcg PO QAM RF: 0 Discontinued amlodipine 10 mg tablet 10 mg PO DAILY Qty: 90 RF: 3 No Action eszopiclone 2 mg tablet 2 mg PO HS Qty: 30 RF: 0 Discharge Orders: Discharge Order (Routine); Ordered 11/15/20 Ordered By: Nawaf Weeks/Other Patient Handouts: Understanding Campylobacter Infection, Understanding Atrial Fibrillation Admission Data Admit Date/Time: 11/11/20 21:05 Attending Provider: Nawaf Montano Admit Provider: Diony Denny Primary Care Provider: Thi Hill V. Other Providers: Baldemar Bonilla ; Brenton Sosa ; Nawaf Montano Other Interventions: Discharge Summary Assessment (RN) Last Done: 11/15/20 15:13 Coding Level of Care Code D/C DAY MANAGEMENT >30 MINS Diagnoses Atrial fibrillation with RVR I48.91 Hyponatremia E87.1 Diarrhea R19.7 Alcohol use disorder Hypertension I10 Vitamin B12 deficiency E53.8 Classic migraine with aura G43.109 Hyperlipidemia E78.5 Insomnia G47.00 Gastroesophageal reflux disease K21.9 Anxiety disorder F41.9 Campylobacter enteritis A04.5
[2020-11-16] MEDS ORDERED: CETIRIZINE HCL 10 MG TABLET PO SCH (09:00)
--- NOTE | 2020-11-24 12:49 | Coding Query ---
CODING QUERY To promote full compliance with coding requirements relating to patient care, provider participation is requested in all cases of substation designer uncertainty. Please assist us with the question(s) below: Coding Question(s): Please specify below, in your clinical opinion, regarding Alcohol Use Disorder. ( ) Mild ( x ) Moderate or Severe ( ) Other: Please Specify Physician's Response(s): Thank you Kym Nicholson Principal Diagnosis: "that condition established after study, to be chiefly responsible for occasioning the admission of the patient to the hospital for care." Co-Existing Principal Diagnosis: "when two or more diagnoses equally meet the criteria for principal diagnosis as determined by the circumstances of admission, diagnostic work up, and/or therapy provided, and the Alphabetic Index, Tabular List, or another coding guideline does not provide sequencing direction, any one of the diagnoses may be sequenced first." "When the physician has documented what appears to be a current diagnosis in the body of the record, but has not included the diagnosis in the final diagnostic statement, the physician should be asked whether the diagnosis should be added." (Source Coding Clinic 2 QTR90. p3-4) [facility]
== END 2020-11-15 17:49 | disposition home or self-care (01) | DRG 372 ==
LOC: ED 17:39 → SUATTDRO 21:05 → 2S 11-12 00:01

== ENCOUNTER 2022-07-18 19:13 | Observation (INO) ==
[2022-07-18] MEDS ORDERED: ALBUT/IPRATROP 3MG/0.5MG NEB 3 ML VIAL ONE (19:37)
[2022-07-18] MEDS ORDERED: ALBUT/IPRATROP 3MG/0.5MG NEB 3 ML VIAL NEB STA (19:39)
[2022-07-18] MEDS ORDERED: hydrALAZINE HCL 20 MG/ML VIAL IV ONE (19:46)
--- NOTE | 2022-07-18 19:52 | Emergency Department Note ---
Impression & Plan CHF (congestive heart failure), Hypoxia ED Provider Note INFORMANT: Patient ED PROVIDER(S): Conrado Wesley DO CHIEF COMPLAINT: Shortness of breath PLAN: Disposition: Admission Outpatient prescription management: none Discussion with: I spoke with the hospitalist, who will see the patient for admi ssion/observation and further evaluation and consultation. MEDICAL DECISION MAKING: This is a 72-year-old female who presents to the ED with a chief complaint of shortness of breath. The patient states that her symptoms started yesterday evening around 5 PM. She was seen this morning and had a cardiac ablation. She was in atrial fibrillation and converted to sinus rhythm. She states that her symptoms seem to have gotten worse since this occurred. She denies any cough or cold symptoms. She is chronically on Eliquis for A-fib. She does have some mild leg edema but no calf tenderness. The patient, on my exam has diminished but clear lung sounds bilaterally. She does not appear to be in any respiratory distress. Saturations this morning were in the high 90s. This evening saturations were 92% when she came in through triage. When she came back to the ED room C9, 89%. She was placed on 2 L of oxygen saturating the mid 90s. She does not use home oxygen.. The patient heart rate is regular rate and rhythm with a heart rate of 72. She is noted to be hypertensive with a blood pressure of 189/123. Afebrile. Minimal pedal edema on my exam. This is symmetric bilaterally. The patient's CBC did not show leukocytosis or anemia. Chemistry panel showed no severe electrolyte abnormality. There is a transaminitis with an AST of 110 and ALT of 126. The troponin was negative for myocardial infarction or myocarditis. The BNP was elevated at 629. This correlates with a chest x-ray that suggest congestive heart failure and pulmonary edema. The p atient's EKG shows a sinus rhythm at a rate of 69 without acute ischemic changes. The patient was initially treated with hydralazine 5 mg IV for her hypertension. She was also given a DuoNeb treatment. She did state that her breathing seemed to get better after the DuoNeb treatment. Based on the test results she was given IV Lasix 40 mg. Her oxygen saturation does seem to have improved somewhat. Blood pressure did improve as well she feels a little anxious. She was given some IV Ativan. Bio fire test was negative. The patient will be seen by the hospitalist for further evaluation and care. An observation overnight might be all that she needs. Triage Nursing notes reviewed. Vital Signs: reviewed Prior /Outside records reviewed: [none] Differential diagnosis: The differential was considered includes acute myocardial infarction, acute coronary syndrome, myocarditis, pericarditis, pericardial effusions /tamponad, esophageal perforation, pulmonary embolism, pneumonia, pneumothorax, cardiomyopathy, congestive heart, anemia , COPD/asthma exacerbation. Diagnostics, as interpreted by me: 12 lead ECG: Sinus rhythm rate of 69. No ST elevation. No PVCs. Normal QTc Cardiac Monitoring ordered: Sinus rhythm in the 60s Medical decision rules: [none] Imaging studies: Chest x-ray: Cardiomegaly and congestive changes with some mild pulmonary edema Procedures: none. Critical care: none. HPI: See MDM above. PAST MEDICAL HISTORY: See Below PAST SURGICAL HISTORY: See Below SOCIAL HISTORY: See Below HOME MEDICATIONS:See Below ALLERGIES: See Below VITALS: See Below PHYSICAL EXAMINATION: See MDM for positive findings otherwise unremarkable. CONSTITUTIONAL/VITAL SIGNS: Reviewed GENERAL:done as appropriate INTEGUMENTARY: done as appropriate HEAD: done as appropriate EYES: done as appropriate RESPIRATORY: done as appropriate CARDIOVASCULAR:done as appropriate GI/ABDOMEN:done as appropriate EXTREMITIES: done as appropriate NEUROLOGICAL: done as appropriate PSYCHIATRIC:done as appropriate MUSCULOSKELETAL:done as appropriate TRIAGE NURSING DOCUMENTATION REVIEWED. Past Med/Surg History Medical History Anxiety disorder Atrial fibrillation with RVR per pt for last 6 months has been in A fib--follows with Dr. Sosa Bicuspid aortic valve monitored by cardio; per recent note, 'gradient not sufficient to require further evaluation or treatment at this time'; most recent ECHO 11/2020 Biliary dyskinesia Contracture of finger joint Gastroesophageal reflux disease History of TIA (transient ischemic attack) Per cardio records - per patient - no TIA- dx'ed instead with severe migraine. Has followed with neuro years ago Hyperlipidemia Hypertension Injury of right rotator cuff Insomnia Left knee DJD follows with ortho; receives synvisc Lumbar facet arthropathy Migraine Initially thought to be a TIA several years ago. Saw Dr. Grant > was a severe migraine per pt . Pt was placed on ASA for likely microvascular disease and now on Eliquis for Afib Mitral regurgitation mild per 2020 ECHO On anticoagulant therapy prior hx of TIA and current AFib Osteopenia Raynauds phenomenon RBBB possibly rate dependent per Cardio; monitoring with current Afib Right knee DJD follows with ortho; receives synvisc Tremor of left hand Surgical History History of cardioversion last 06/09/22 @ [facility] Hx of section x1 Hx of colonoscopy Hx of hand surgery right Hx of tonsillectomy Lipoma removed from arm Status post epidural steroid injection Family History Mother , age 61 of an HI Dyslipidemia Heart disease Myocardial infarction Stroke Aunt Lung cancer Uncle Lung cancer Father , at 67 of heart failure Heart disease Daughter Migraine Grandmother (Maternal) Myocardial infarction Other No family history of adverse response to anesthesia Denies family history of Ovarian cancer Prostate cancer Breast cancer Colorectal cancer Social History Smoking Status: Former smoker Tobacco Type: Cigarettes Age Started Using Tobacco: 18; Age Quit Using Tobacco: 36; packs per day: 1; Second Hand Exposure: No; Do You Dip or Chew Tobacco: No; Hx Alcohol Use: Yes Alcohol type: beer and wine Alcohol type Comment: 3-4 Alcohol Intake Frequency Comment: patient has 3 or 4 drinks of beer and/or wine per day and has been doing t Hx Substance Use: No Preferred Language: American Communication Ability: Effective Visual Impairment: No Limitations Hearing Ability: Normal Director Of Programming Required: No Beliefs That Will Affect Care: None marital status: Current Living Situation: Spouse current occupational status: retired 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 How many Children do You have: 1 Feels Safe at Home: Yes Childhood Exposure to Second-Hand Smoke: Yes (father) Physical Activity Frequency: 3-4 Times per Week Seatbelt Use: always Sunscreen Use: Yes Assistive Devices: Glasses Allergies Allergies Allergy/AdvReac Type Severity Reaction Status Date / Time bacitracin Allergy Mild Rash Verified 07/18/22 21:13 [From Polysporin(bacitracin base)] polymyxin B Allergy Mild Rash Verified 07/18/22 21:13 [From Polysporin(bacitracin base)] Sulfa (Sulfonamide Allergy Mild RASH all Verified 07/18/22 21:13 Antibiotics) over body, skin tingles clavulanic acid AdvReac Intermediate Diarrhea Verified 07/18/22 21:13 [From Augmentin] levofloxacin [From Levaquin] AdvReac tendonitis Verified 07/18/22 21:14 Home Meds Home Medications Medication Instructions Recorded Confirmed propylene glycol 0.6 % eye drops 1 drp ophthalmic (eye) DIRECTED 08/09/18 07/18/22 PRN Dry Eye(S) estradiol 10 mcg vaginal tablet 5 mcg vaginal 2XWK 04/17/19 07/18/22 (Yuvafem) cholecalciferol (vitamin D3) 125 125 mcg PO QAM 05/05/21 07/18/22 mcg (5,000 unit) tablet (Vitamin D3) vitamin B complex 1 tab PO QAM 05/05/21 07/18/22 fluticasone propionate 50 1 spray intranasal DAILY 06/06/22 07/18/22 mcg/actuation nasal spray,suspension omeprazole 20 mg capsule,delayed 20 mg PO HS 06/06/22 07/18/22 release metoprolol succinate 200 mg 200 mg PO QAM 07/13/22 07/18/22 tablet,extended release 24 hr oxymetazoline 0.05 % nasal spray 1 spray intranasal Q12H PRN Nasal 07/18/22 07/18/22 (Afrin Sinus (oxymetazoline)) Congestion Previous Rx's Medication Instructions Recorded mecobalamin (vitamin B12) 1,000 1,000 mcg PO DAILY #90 tabs 06/22/21 mcg chewable tablet apixaban 5 mg tablet (Eliquis) 5 mg PO BID #180 tabs 01/10/22 hydroxyzine HCl 25 mg tablet 50 mg PO HS PRN insomnia 30 days 01/10/22 #60 tabs eszopiclone 2 mg tablet 2 mg PO HS #30 tabs 03/13/22 lisinopril 40 mg tablet 40 mg PO HS #90 tabs 03/29/22 dronedarone 400 mg tablet (Multaq) 400 mg PO BID #60 tabs 07/04/22 atorvastatin 10 mg tablet 10 mg PO HS #90 tabs 07/13/22 Results & Data (ED) Vital Signs Vital Signs - 24 hr 07/18/22 19:21 07/18/22 19:30 07/18/22 19:31 Temperature 36.9 C Temperature Source Temporal Artery Scan Pulse Rate 72 Pulse Rate [Apical] Pulse Rhythm Regular Pulse Strength Normal Respiratory Rate 18 Respiratory Effort / Characteristics Non-Labored Spontaneous Respiratory Depth Normal Respiratory Pattern Regular Blood Pressure 189/123 H Blood Pressure [Left Arm] Blood Pressure Mean 145 Blood Pressure Mean [Left Arm] Blood Pressure Position Sitting Blood Pressure Position [Left Arm] Pulse Oximetry 92 89 L 89 L Oxygen Delivery Method Room Air Room Air Room Air Nasal Cannula Oxygen Flow Rate 0 Sepsis Recent Fever Within 48 Hours No Sepsis New/Unexplained Change in Mental Status N/A Sepsis Action Taken by Nursing No Action Required Oxygen Flow Rate - Titration 2 Pulse Oximetry Post Tiitration 98 07/18/22 19:59 07/18/22 20:04 07/18/22 19:30 Temperature Temperature Source Pulse Rate 65 Pulse Rate [Apical] 66 Pulse Rhythm Pulse Strength Respiratory Rate 16 Respiratory Effort / Characteristics Non-Labored Spontaneous Short of Breath SOB on Exertion Respiratory Depth Normal Respiratory Pattern Regular Tachypnea Blood Pressure Blood Pressure [Left Arm] 179/101 H Blood Pressure Mean Blood Pressure Mean [Left Arm] 127 Blood Pressure Position Blood Pressure Position [Left Arm] Semi-fowlers Pulse Oximetry 95 Oxygen Delivery Method Room Air Oxygen Flow Rate Sepsis Recent Fever Within 48 Hours Sepsis New/Unexplained Change in Mental Status Sepsis Action Taken by Nursing Oxygen Flow Rate - Titration Pulse Oximetry Post Tiitration 07/18/22 20:00 07/18/22 20:28 Temperature Temperature Source Pulse Rate 64 67 Pulse Rate [Apical] Pulse Rhythm Pulse Strength Respiratory Rate 18 17 Respiratory Effort / Characteristics Respiratory Depth Respiratory Pattern Blood Pressure 175/96 H 174/92 H Blood Pressure [Left Arm] Blood Pressure Mean 122 119 Blood Pressure Mean [Left Arm] Blood Pressure Position Blood Pressure Position [Left Arm] Pulse Oximetry 95 93 Oxygen Delivery Method Room Air Room Air Oxygen Flow Rate Sepsis Recent Fever Within 48 Hours Sepsis New/Unexplained Change in Mental Status Sepsis Action Taken by Nursing Oxygen Flow Rate - Titration Pulse Oximetry Post Tiitration Laboratory Data 07/18/22 19:50 07/18/22 19:50 Lab Results 07/18/22 07/18/22 07/18/22 Range/Units 19:50 19:50 19:50 WBC 7.35 (4.8-10.8) K/ul RBC 4.67 (4.20-5.40) M/uL Hgb 13.7 (12.0-16.0) g/dl Hct 41.8 (37.0-47.0) % MCV 89.5 (80.0-100.0) fL MCH 29.3 (25.0-34.0) pg MCHC 32.8 (32.0-36.0) g/dL RDW Std Deviation 40.6 (36.4-46.3) fL RDW Coeff of [place] 12.5 (11.5-14.5) % Plt Count 249 (130-400) K/uL MPV 9.5 (9.4-12.4) fL Immature Gran % (Auto) 0.5 % Neut % (Auto) 74.5 % Lymph % (Auto) 12.8 % [place] % (Auto) 8.3 % Eos % (Auto) 3.4 % Baso % (Auto) 0.5 % Neut # (Auto) 5.47 (1.40-6.50) K/uL Lymph # (Auto) 0.94 L (1.2-3.4) K/uL [place] # (Auto) 0.61 H (0.11-0.59) K/uL Eos # (Auto) 0.25 (0-0.50) K/uL Baso # (Auto) 0.04 (0-0.2) K/uL Immature Gran # (Auto) 0.04 (0.01-0.20) K/uL Sodium 135 L (136-145) mmol/L Potassium 3.8 (3.5-5.1) mmol/L Chloride 101 (98-107) mmol/L Carbon Dioxide 24 (21-32) mmol/L Anion Gap 10 (3-11) BUN 12 (6-23) mg/dl Creatinine 0.98 (0.6-1.2) mg/dl Est Cr Clr Drug Dosing 53.1 ml/min Est GFR ( Amer) 66.8 ml/min Est GFR (Non-Af Amer) 57.6 ml/min BUN/Creatinine Ratio 12.2 (10-20) Glucose 88 (70-99(Fasting)) mg/dl Calcium 9.6 (8.6-10.3) mg/dl Total Bilirubin 1.1 H (0.2-1.0) mg/dl AST 110 H (13-39) U/L ALT 126 H (7-52) U/L Alkaline Phosphatase 121 H (34-104) U/L Troponin I High Sens 5.8 (0-14) pg/ml B-Natriuretic Peptide 629 H (0-100) pg/ml Total Protein 7.1 (6.0-8.3) gm/dl Albumin 4.2 (3.4-5.0) gm/dl Globulin 2.9 (2.5-4.0) gm/dl Albumin/Globulin Ratio 1.4 (0.9-2) Lipase 17 (11-82) U/L Adenovirus (PCR) (NotDetected) B. pertussis DNA (PCR) (NotDetected) B.parapertussis DNA PCR (NotDetected) C. pneumoniae DNA (PCR) (NotDetected) Coronavirus OC43 (PCR) (NotDetected) Coronavirus HKU1 (PCR) (NotDetected) Coronavirus 229E (PCR) (NotDetected) SARS-CoV-2 (PCR) (NotDetected) Coronavirus NL63 (PCR) (NotDetected) Human Metapneumovir PCR (NotDetected) Influenza Type A (PCR) (NotDetected) Influenza Type B (PCR) (NotDetected) M. pneumoniae (PCR) (NotDetected) Parainfluenza 1 (PCR) (NotDetected) Parainfluenza 2 (PCR) (NotDetected) Parainfluenza 3 (PCR) (NotDetected) Parainfluenza 4 (PCR) (NotDetected) RSV (PCR) (NotDetected) Entero/Rhino (PCR) (NotDetected) 07/18/22 Range/Units 20:31 WBC (4.8-10.8) K/ul RBC (4.20-5.40) M/uL Hgb (12.0-16.0) g/dl Hct (37.0-47.0) % MCV (80.0-100.0) fL MCH (25.0-34.0) pg MCHC (32.0-36.0) g/dL RDW Std Deviation (36.4-46.3) fL RDW Coeff of [place] (11.5-14.5) % Plt Count (130-400) K/uL MPV (9.4-12.4) fL Immature Gran % (Auto) % Neut % (Auto) % Lymph % (Auto) % [place] % (Auto) % Eos % (Auto) % Baso % (Auto) % Neut # (Auto) (1.40-6.50) K/uL Lymph # (Auto) (1.2-3.4) K/uL [place] # (Auto) (0.11-0.59) K/uL Eos # (Auto) (0-0.50) K/uL Baso # (Auto) (0-0.2) K/uL Immature Gran # (Auto) (0.01-0.20) K/uL Sodium (136-145) mmol/L Potassium (3.5-5.1) mmol/L Chloride (98-107) mmol/L Carbon Dioxide (21-32) mmol/L Anion Gap (3-11) BUN (6-23) mg/dl Creatinine (0.6-1.2) mg/dl Est Cr Clr Drug Dosing ml/min Est GFR ( Amer) ml/min Est GFR (Non-Af Amer) ml/min BUN/Creatinine Ratio (10-20) Glucose (70-99(Fasting)) mg/dl Calcium (8.6-10.3) mg/dl Total Bilirubin (0.2-1.0) mg/dl AST (13-39) U/L ALT (7-52) U/L Alkaline Phosphatase (34-104) U/L Troponin I High Sens (0-14) pg/ml B-Natriuretic Peptide (0-100) pg/ml Total Protein (6.0-8.3) gm/dl Albumin (3.4-5.0) gm/dl Globulin (2.5-4.0) gm/dl Albumin/Globulin Ratio (0.9-2) Lipase (11-82) U/L Adenovirus (PCR) Not Detected (NotDetected) B. pertussis DNA (PCR) Not Detected (NotDetected) B.parapertussis DNA PCR Not Detected (NotDetected) C. pneumoniae DNA (PCR) Not Detected (NotDetected) Coronavirus OC43 (PCR) Not Detected (NotDetected) Coronavirus HKU1 (PCR) Not Detected (NotDetected) Coronavirus 229E (PCR) Not Detected (NotDetected) SARS-CoV-2 (PCR) Not Detected (NotDetected) Coronavirus NL63 (PCR) Not Detected (NotDetected) Human Metapneumovir PCR Not Detected (NotDetected) Influenza Type A (PCR) Not Detected (NotDetected) Influenza Type B (PCR) Not Detected (NotDetected) M. pneumoniae (PCR) Not Detected (NotDetected) Parainfluenza 1 (PCR) Not Detected (NotDetected) Parainfluenza 2 (PCR) Not Detected (NotDetected) Parainfluenza 3 (PCR) Not Detected (NotDetected) Parainfluenza 4 (PCR) Not Detected (NotDetected) RSV (PCR) Not Detected (NotDetected) Entero/Rhino (PCR) Not Detected (NotDetected) Administered Medications Discontinued Medications Albuterol (Albut/Ipratrop 3mg/0.5mg Neb 3 Ml Vial) Confirm Administered Dose 3 ml .ROUTE .STK-MED ONE Stop: 07/18/22 19:38 Last Admin: 07/18/22 19:43 Dose: Not Given Documented By: LOU Albuterol (Albut/Ipratrop 3mg/0.5mg Neb 3 Ml Vial) 3 ml NEB NOW STA; Protocol Stop: 07/18/22 19:40 Last Admin: 07/18/22 19:43 Dose: 3 ml Documented By: LOU Hydralazine HCl (Hydralazine Hcl 20 Mg/Ml Vial) 5 mg IV NOW ONE Stop: 07/18/22 19:47 Last Admin: 07/18/22 20:02 Dose: 5 mg Documented By: LOU Discharge Plan Visit Data Chief Complaint: Shortness of Breath/Dyspnea Stated Complaint: TROUBLE BREATHING ED Provider: Conrado Wesley Discharge Problem: CHF (congestive heart failure), Hypoxia Patient Disposition: Being Evaluated by Hospitalist Forms Stand Alone Forms: [facility] [place] [employer] Prescriptions Prescriptions: No Action mecobalamin (vitamin B12) 1,000 mcg tablet,chewable 1,000 mcg PO DAILY Qty: 90 3RF hydroxyzine HCl 25 mg tablet 50 mg PO HS PRN (Reason: insomnia) 30 Days Qty: 60 5RF Hold Instructions: hold while on Levofloxacin Eliquis 5 mg tablet 5 mg PO BID Qty: 180 3RF eszopiclone 2 mg tablet 2 mg PO HS Qty: 30 5RF lisinopril 40 mg tablet 40 mg PO HS Qty: 90 1RF atorvastatin 10 mg tablet 10 mg PO HS Qty: 90 1RF Multaq 400 mg tablet 400 mg PO BID Qty: 60 2RF Rx Instructions: must administer with a meal/food propylene glycol 0.6 % Drops 1 drp OPHTHALMIC (EYE) DIRECTED PRN (Reason: Dry Eye(S)) estradiol [Yuvafem] 10 mcg tablet 5 mcg VAGINAL 2XWK omeprazole 20 mg capsule,delayed release(DR/EC) 20 mg PO HS fluticasone propionate 50 mcg/actuation [place],Suspension 1 spray INTRANASAL DAILY Rx Instructions: administer into each nostril metoprolol succinate 200 mg tablet extended release 24 hr 200 mg PO QAM cholecalciferol (vitamin D3) [Vitamin D3] 125 mcg (5,000 unit) Tablet 125 mcg PO QAM vitamin B complex Tablet 1 tab PO QAM oxymetazoline [Afrin Sinus (oxymetazoline)] 0.05 % [place],Non-Aerosol 1 spray INTRANASAL Q12H PRN (Reason: Nasal Congestion) Referrals Referrals: Tih Hill MD [Primary Care Provider] -
[2022-07-18 20:12] LABS: Basophils # (auto) 0.04 K/uL (0-0.2); Basophils % (auto) 0.5 %; Eosinophils # (auto) 0.25 K/uL (0-0.50); Eosinophils % (auto) 3.4 %; Hematocrit (blood only) 41.8 % (37.0-47.0); Hemoglobin 13.7 g/dl (12.0-16.0); Immature Granulocytes # (auto) 0.04 K/uL (0.01-0.20); Immature Granulocytes % (auto) 0.5 %; Lymphocytes # (auto) 0.94 K/uL (1.2-3.4); Lymphocytes % (auto) 12.8 %; Mean Corpuscular Hemoglobin 29.3 pg (25.0-34.0); Mean Corpuscular Hgb Conc 32.8 g/dL (32.0-36.0); Mean Corpuscular Volume 89.5 fL (80.0-100.0); Mean Platelet Volume 9.5 fL (9.4-12.4); Monocytes # (auto) 0.61 K/uL (0.11-0.59); Monocytes % (auto) 8.3 %; Neutrophils # (auto) 5.47 K/uL (1.40-6.50); Neutrophils % (auto) 74.5 %; Platelet Count 249 K/uL (130-400); RDW Coefficient of Variation 12.5 % (11.5-14.5); RDW Standard Deviation 40.6 fL (36.4-46.3); Red Blood Count 4.67 M/uL (4.20-5.40); White Blood Count 7.35 K/ul (4.8-10.8)
[2022-07-18 20:28] LABS: Albumin Globulin Ratio 1.4 (0.9-2); Albumin Level 4.2 gm/dl (3.4-5.0); BUN Creatinine Ratio 12.2 (10-20); Bilirubin,Total 1.1 mg/dl (0.2-1.0); Calcium 9.6 mg/dl (8.6-10.3); Creatinine Clr Calc Pharmacy 53.1 ml/min; Est GFR (African American) 66.8 ml/min; Est GFR (Non-African American) 57.6 ml/min; Globulin 2.9 gm/dl (2.5-4.0); Potassium 3.8 mmol/L (3.5-5.1); Total Protein 7.1 gm/dl (6.0-8.3)
[2022-07-18 20:34] LABS: Troponin I High Sensitivity 5.8 pg/ml (0-14)
[2022-07-18] MEDS ORDERED: FUROSEMIDE 40 MG/4 ML VIAL IV ONE (21:14)
[2022-07-18 21:29] LABS: Adenovirus PCR Not Detected (NotDetected); Bordetella parapertussis PCR Not Detected (NotDetected); Bordetella pertussis PCR Not Detected (NotDetected); Chlamydia pneumoniae PCR Not Detected (NotDetected); Coronavirus 229E PCR Not Detected (NotDetected); Coronavirus CoV-2 (COVID19)PCR Not Detected (NotDetected); Coronavirus HKU1 PCR Not Detected (NotDetected); Coronavirus NL63 PCR Not Detected (NotDetected); Coronavirus OC43PCR Not Detected (NotDetected); Human Metapneumovirus PCR Not Detected (NotDetected); Influenza A PCR Not Detected (NotDetected); Influenza B PCR Not Detected (NotDetected); Mycoplasma pneumoniae PCR Not Detected (NotDetected); Parainfluenza Virus 1 PCR Not Detected (NotDetected); Parainfluenza Virus 2 PCR Not Detected (NotDetected); Parainfluenza Virus 3 PCR Not Detected (NotDetected); Parainfluenza Virus 4 PCR Not Detected (NotDetected); Respiratory Syncytial VirusPCR Not Detected (NotDetected); Rhinovirus/Enterovirus PCR Not Detected (NotDetected)
[2022-07-18] MEDS ORDERED: LORazepam 2 MG/1 ML VIAL IV STA (21:31)
[2022-07-18] MEDS ORDERED: PANTOprazole 40 MG TAB PO STA (22:15)
[2022-07-18] MEDS ORDERED: DRONEDARONE HCL 400 MG TAB PO ONE (22:15)
[2022-07-18] MEDS ORDERED: APIXABAN 5 MG TABLET PO ONE (22:16)
--- NOTE | 2022-07-18 22:20 | History & Physical Report ---
Date of Service July 18, 2022 Assessment & Plan (1) CHF (congestive heart failure): (2) Hypoxia: (3) Mitral valve disorder: (4) Hypertension: (5) Hyperlipidemia: (6) Anxiety disorder: (7) Mild aortic stenosis: (8) Atrial fibrillation: Plan CHF/atrial fibrillation status post cardioversion today to normal sinus rhythm/hypertension/mild aortic stenosis- Given Lasix 40 mg IV in ED and will continue every morning Admit to monitored bed, following for arrhythmia Follow serial CBC with differential, basic metabolic panel magnesium levels Continue apixaban, dronedarone, lisinopril and metoprolol succinate Consult her panel instrument repairer Dr. Sosa Hyperlipidemia- Continue atorvastatin GERD- Change omeprazole to pantoprazole per formulary interchange History of Present Illness Chief Complaint: The patient reports that she initially became short of breath last evening at suppertime, did not have any change after cardioversion this morning, and due to persistence of shortness of breath presents to the ED for assessment Primary Care Provider: Thi Hill MD The patient is a 72-year-old female with a past medical history including atrial fibrillation, hypertension, hyperlipidemia, anxiety disorder, small vessel disease of brain, aortic stenosis, long-term use of anticoagulant, Raynaud's and history of TIA/stroke. Patient presents with the symptoms as noted above. Significant abnormal laboratories: AST 110, ALT 126, BNP 629 Viral panel is negative. In the ED the patient received the following: DuoNeb, hydralazine 5 mg IV, furosemide 40 mg IV and lorazepam 0.5 mg IV.. Allergies Allergy/AdvReac Type Severity Reaction Status Date / Time bacitracin Allergy Mild Rash Verified 07/18/22 21:13 [From Polysporin(bacitracin base)] polymyxin B Allergy Mild Rash Verified 07/18/22 21:13 [From Polysporin(bacitracin base)] Sulfa (Sulfonamide Allergy Mild RASH all Verified 07/18/22 21:13 Antibiotics) over body, skin tingles clavulanic acid AdvReac Intermediate Diarrhea Verified 07/18/22 21:13 [From Augmentin] levofloxacin [From Levaquin] AdvReac tendonitis Verified 07/18/22 21:14 Home Medications Medication Instructions Recorded Confirmed Type propylene glycol 0.6 % eye drops 1 drp ophthalmic (eye) DIRECTED 08/09/18 07/18/22 History PRN Dry Eye(S) estradiol 10 mcg vaginal tablet 5 mcg vaginal 2XWK 04/17/19 07/18/22 History (Yuvafem) cholecalciferol (vitamin D3) 125 125 mcg PO QAM 05/05/21 07/18/22 History mcg (5,000 unit) tablet (Vitamin D3) vitamin B complex 1 tab PO QAM 05/05/21 07/18/22 History mecobalamin (vitamin B12) 1,000 1,000 mcg PO DAILY #90 tabs 06/22/21 07/18/22 Rx mcg chewable tablet apixaban 5 mg tablet (Eliquis) 5 mg PO BID #180 tabs 01/10/22 07/18/22 Rx hydroxyzine HCl 25 mg tablet 50 mg PO HS PRN insomnia 30 days 01/10/22 07/18/22 Rx #60 tabs eszopiclone 2 mg tablet 2 mg PO HS #30 tabs 03/13/22 07/18/22 Rx lisinopril 40 mg tablet 40 mg PO HS #90 tabs 03/29/22 07/18/22 Rx fluticasone propionate 50 1 spray intranasal DAILY 06/06/22 07/18/22 History mcg/actuation nasal spray,suspension omeprazole 20 mg capsule,delayed 20 mg PO HS 06/06/22 07/18/22 History release dronedarone 400 mg tablet (Multaq) 400 mg PO BID #60 tabs 07/04/22 07/18/22 Rx atorvastatin 10 mg tablet 10 mg PO HS #90 tabs 07/13/22 07/18/22 Rx metoprolol succinate 200 mg 200 mg PO QAM 07/13/22 07/18/22 History tablet,extended release 24 hr oxymetazoline 0.05 % nasal spray 1 spray intranasal Q12H PRN Nasal 07/18/22 07/18/22 History (Afrin Sinus (oxymetazoline)) Congestion Past Med/Surg History Medical History (Updated 07/18/22 @ 23:08 by Jorge Otero MD) Anxiety disorder Atrial fibrillation Atrial fibrillation with RVR per pt for last 6 months has been in A fib--follows with Dr. Sosa Bicuspid aortic valve monitored by cardio; per recent note, 'gradient not sufficient to require further evaluation or treatment at this time'; most recent ECHO 11/2020 Biliary dyskinesia Contracture of finger joint Gastroesophageal reflux disease History of TIA (transient ischemic attack) Per cardio records - per patient - no TIA- dx'ed instead with severe migraine. Has followed with neuro years ago Hyperlipidemia Hypertension Injury of right rotator cuff Insomnia Left knee DJD follows with ortho; receives synvisc Lumbar facet arthropathy Migraine Initially thought to be a TIA several years ago. Saw Dr. Grant > was a severe migraine per pt . Pt was placed on ASA for likely microvascular disease and now on Eliquis for Afib Mitral regurgitation mild per 2020 ECHO On anticoagulant therapy prior hx of TIA and current AFib Osteopenia Raynauds phenomenon RBBB possibly rate dependent per Cardio; monitoring with current Afib Right knee DJD follows with ortho; receives synvisc Tremor of left hand Surgical History History of cardioversion last 06/09/22 @ [facility] Hx of section x1 Hx of colonoscopy Hx of hand surgery right Hx of tonsillectomy Lipoma removed from arm Status post epidural steroid injection Family History Mother , age 61 of an [place] Dyslipidemia Heart disease Myocardial infarction Stroke Aunt Lung cancer Uncle Lung cancer Father , at 67 of heart failure Heart disease Daughter Migraine Grandmother (Maternal) Myocardial infarction Other No family history of adverse response to anesthesia Denies family history of Ovarian cancer Prostate cancer Breast cancer Colorectal cancer Social History Smoking Status: Former smoker Tobacco Type: Cigarettes Age Started Using Tobacco: 18; Age Quit Using Tobacco: 36; packs per day: 1; Second Hand Exposure: No; Do You Dip or Chew Tobacco: No; Hx Alcohol Use: Yes Alcohol type: beer and wine Alcohol type Comment: 3-4 Alcohol Intake Frequency Comment: patient has 3 or 4 drinks of beer and/or wine per day and has been doing t Hx Substance Use: No Preferred Language: Slovak Communication Ability: Effective Visual Impairment: No Limitations Hearing Ability: Normal Booking Officer Required: No Beliefs That Will Affect Care: None marital status: Current Living Situation: Spouse current occupational status: retired 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 How many Children do You have: 1 Feels Safe at Home: Yes Childhood Exposure to Second-Hand Smoke: Yes (father) Physical Activity Frequency: 3-4 Times per Week Seatbelt Use: always Sunscreen Use: Yes Assistive Devices: Glasses Review of Systems Review of Systems: The patient denies chest pain, palpitations, cough, lower extremity swelling, sore throat, fevers, chills, sweats, weight change, fatigue, nausea, vomiting, diarrhea , constipation, abdominal pain, pelvic pain, blood in urine or stool, dysuria, urinary frequency or urgency, lightheadedness, dizziness, headache, memory loss, loss of consciousness, rash, abnormal bruising or bleeding, imbalance, focal or generalized weakness, numbness or tingling in arms or legs, generalized arthralgias or myalgias, back or neck pain, or night sweats. The review of systems is otherwise negative other than for that already noted above, and at least 10 systems have been reviewed. Physical Exam Physical Exam: The patient is awake, alert and oriented 3, well developed and well nourished, normocephalic and atraumatic, lying in bed and in no acute distress. HEENT--PERRL, EOMI, mucous membranes and oropharynx dry. Neck--supple. No JVD. No bruits. Thyroid normal, trachea midline, no adenopathy. Heart--normal S1 and S2. No murmurs, rubs or gallops. Lungs--crackles at the bases bilaterally right greater than left. No respiratory distress, no accessory muscle use. Abdomen--normal bowel sounds and soft. Nontender. Nondistended, no hernias or masses, no organomegaly. Extremities--no cyanosis or clubbing. No edema. Dermatologic--normal skin turgor, normal color, no abnormal lymph nodes, no rash. Neurologic--cranial nerves II through XII grossly intact. Rheumatologic--normal range of motion. Psychiatric--normal affect. Results & Data Results & Data Vital Signs (Past 12 Hours) Vital Signs Temp Pulse Pulse Resp BP BP Pulse Ox 07/18/22 22:00 94 07/18/22 22:00 161/88 H 07/18/22 21:30 93 07/18/22 21:30 177/125 H 07/18/22 21:28 94 07/18/22 21:27 169/97 H 07/18/22 20:54 66 15 93 07/18/22 20:30 70 15 93 07/18/22 20:30 177/101 H 07/18/22 20:27 174/92 H 07/18/22 20:27 66 16 93 07/18/22 20:28 67 17 174/92 H 93 07/18/22 20:00 64 18 175/96 H 95 07/18/22 20:04 65 07/18/22 19:59 66 16 179/101 H 95 07/18/22 19:31 89 L 07/18/22 19:30 89 L 07/18/22 19:21 36.9 C 72 18 189/123 H 92 O2 Del Method O2 Flow Rate 07/18/22 22:00 07/18/22 22:00 07/18/22 21:30 07/18/22 21:30 07/18/22 21:28 07/18/22 21:27 07/18/22 20:54 07/18/22 20:30 07/18/22 20:30 07/18/22 20:27 07/18/22 20:27 07/18/22 20:28 Room Air 07/18/22 20:00 Room Air 07/18/22 20:04 07/18/22 19:59 Room Air 07/18/22 19:31 Room Air, Nasal Cannula 0 07/18/22 19:30 Room Air 07/18/22 19:21 Room Air Laboratory Results Laboratory Results WBC 7.35 K/ul (4.8-10.8) 07/18/22 19:50 RBC 4.67 M/uL (4.20-5.40) 07/18/22 19:50 Hgb 13.7 g/dl (12.0-16.0) 07/18/22 19:50 Hct 41.8 % (37.0-47.0) 07/18/22 19:50 MCV 89.5 fL (80.0-100.0) 07/18/22 19:50 MCH 29.3 pg (25.0-34.0) 07/18/22 19:50 MCHC 32.8 g/dL (32.0-36.0) 07/18/22 19:50 RDW Std Deviation 40.6 fL (36.4-46.3) 07/18/22 19:50 RDW Coeff of [place] 12.5 % (11.5-14.5) 07/18/22 19:50 Plt Count 249 K/uL (130-400) 07/18/22 19:50 MPV 9.5 fL (9.4-12.4) 07/18/22 19:50 Immature Gran % (Auto) 0.5 % 07/18/22 19:50 Neut % (Auto) 74.5 % 07/18/22 19:50 Lymph % (Auto) 12.8 % 07/18/22 19:50 [place] % (Auto) 8.3 % 07/18/22 19:50 Eos % (Auto) 3.4 % 07/18/22 19:50 Baso % (Auto) 0.5 % 07/18/22 19:50 Neut # (Auto) 5.47 K/uL (1.40-6.50) 07/18/22 19:50 Lymph # (Auto) 0.94 K/uL (1.2-3.4) L 07/18/22 19:50 [place] # (Auto) 0.61 K/uL (0.11-0.59) H 07/18/22 19:50 Eos # (Auto) 0.25 K/uL (0-0.50) 07/18/22 19:50 Baso # (Auto) 0.04 K/uL (0-0.2) 07/18/22 19:50 Immature Gran # (Auto) 0.04 K/uL (0.01-0.20) 07/18/22 19:50 Sodium 135 mmol/L (136-145) L 07/18/22 19:50 Potassium 3.8 mmol/L (3.5-5.1) 07/18/22 19:50 Chloride 101 mmol/L (98-107) 07/18/22 19:50 Carbon Dioxide 24 mmol/L (21-32) 07/18/22 19:50 Anion Gap 10 (3-11) 07/18/22 19:50 BUN 12 mg/dl (6-23) 07/18/22 19:50 Creatinine 0.98 mg/dl (0.6-1.2) 07/18/22 19:50 Est Cr Clr Drug Dosing 53.1 ml/min 07/18/22 19:50 Est GFR ( Amer) 66.8 ml/min 07/18/22 19:50 Est GFR (Non-Af Amer) 57.6 ml/min 07/18/22 19:50 BUN/Creatinine Ratio 12.2 (10-20) 07/18/22 19:50 Glucose 88 mg/dl (70-99(Fasting)) 07/18/22 19:50 Calcium 9.6 mg/dl (8.6-10.3) 07/18/22 19:50 Total Bilirubin 1.1 mg/dl (0.2-1.0) H 07/18/22 19:50 AST 110 U/L (13-39) H 07/18/22 19:50 ALT 126 U/L (7-52) H 07/18/22 19:50 Alkaline Phosphatase 121 U/L (34-104) H 07/18/22 19:50 Troponin I High Sens 5.8 pg/ml (0-14) 07/18/22 19:50 B-Natriuretic Peptide 629 pg/ml (0-100) H 07/18/22 19:50 Total Protein 7.1 gm/dl (6.0-8.3) 07/18/22 19:50 Albumin 4.2 gm/dl (3.4-5.0) 07/18/22 19:50 Globulin 2.9 gm/dl (2.5-4.0) 07/18/22 19:50 Albumin/Globulin Ratio 1.4 (0.9-2) 07/18/22 19:50 Lipase 17 U/L (11-82) 07/18/22 19:50 Adenovirus (PCR) Not Detected (NotDetected) 07/18/22 20:31 B. pertussis DNA (PCR) Not Detected (NotDetected) 07/18/22 20:31 B.parapertussis DNA PCR Not Detected (NotDetected) 07/18/22 20:31 C. pneumoniae DNA (PCR) Not Detected (NotDetected) 07/18/22 20:31 Coronavirus OC43 (PCR) Not Detected (NotDetected) 07/18/22 20:31 Coronavirus HKU1 (PCR) Not Detected (NotDetected) 07/18/22 20:31 Coronavirus 229E (PCR) Not Detected (NotDetected) 07/18/22 20:31 SARS-CoV-2 (PCR) Not Detected (NotDetected) 07/18/22 20:31 Coronavirus NL63 (PCR) Not Detected (NotDetected) 07/18/22 20:31 Human Metapneumovir PCR Not Detected (NotDetected) 07/18/22 20:31 Influenza Type A (PCR) Not Detected (NotDetected) 07/18/22 20:31 Influenza Type B (PCR) Not Detected (NotDetected) 07/18/22 20:31 M. pneumoniae (PCR) Not Detected (NotDetected) 07/18/22 20:31 Parainfluenza 1 (PCR) Not Detected (NotDetected) 07/18/22 20:31 Parainfluenza 2 (PCR) Not Detected (NotDetected) 07/18/22 20:31 Parainfluenza 3 (PCR) Not Detected (NotDetected) 07/18/22 20:31 Parainfluenza 4 (PCR) Not Detected (NotDetected) 07/18/22 20:31 RSV (PCR) Not Detected (NotDetected) 07/18/22 20:31 Entero/Rhino (PCR) Not Detected (NotDetected) 07/18/22 20:31 Code Status & VTE Plan Code Status Full code VTE Prophylaxis Plan VTE Prophylaxis will be ordered: Yes PG Care Time/CCT Total # of Minutes Spent Total Time Spent with Patient: Total time spent is greater than 50% in coordination of care (as documented) at patient's floor/unit and/or counseling patient: Coding Level of Care Code 48911 INT INP/OBS CARE 3/75MIN Diagnoses CHF (congestive heart failure) I50.9 Hypoxia R09.02 Mitral valve disorder I05.9 Hypertension I10 Hyperlipidemia E78.5 Anxiety disorder F41.9 Mild aortic stenosis I35.0 Atrial fibrillation I48.91
[2022-07-18] MEDS ORDERED: ACETAMINOPHEN 325 MG TAB PO PRN (23:59)
[2022-07-18] MEDS ORDERED: hydrOXYzine HCl 25 MG TAB PO PRN (23:59)
[2022-07-19] MEDS ORDERED: ARTIFICIAL TEARS OP PRN (00:14)
[2022-07-19 06:58] LABS: Basophils # (auto) 0.02 K/uL (0-0.2); Basophils % (auto) 0.4 %; Eosinophils % (auto) 5.3 %; Hematocrit (blood only) 37.7 % (37.0-47.0); Hemoglobin 12.8 g/dl (12.0-16.0); Immature Granulocytes # (auto) 0.03 K/uL (0.01-0.20); Immature Granulocytes % (auto) 0.5 %; Lymphocytes # (auto) 1.04 K/uL (1.2-3.4); Lymphocytes % (auto) 18.4 %; Mean Corpuscular Hemoglobin 29.2 pg (25.0-34.0); Mean Corpuscular Volume 85.9 fL (80.0-100.0); Mean Platelet Volume 9.6 fL (9.4-12.4); Monocytes % (auto) 12.4 %; Neutrophils # (auto) 3.55 K/uL (1.40-6.50); Platelet Count 222 K/uL (130-400); RDW Coefficient of Variation 12.4 % (11.5-14.5); RDW Standard Deviation 38.8 fL (36.4-46.3); Red Blood Count 4.39 M/uL (4.20-5.40); White Blood Count 5.64 K/ul (4.8-10.8)
[2022-07-19 07:20] LABS: Albumin Globulin Ratio 1.6 (0.9-2); Albumin Level 3.8 gm/dl (3.4-5.0); BUN Creatinine Ratio 14.4 (10-20); Bilirubin,Total 1.5 mg/dl (0.2-1.0); Calcium 9.1 mg/dl (8.6-10.3); Creatinine Clr Calc Pharmacy 57.7 ml/min; Est GFR (Non-African American) 63.9 ml/min; Globulin 2.4 gm/dl (2.5-4.0); Magnesium 1.6 mg/dl (1.7-2.4); Potassium 3.4 mmol/L (3.5-5.1); Total Protein 6.2 gm/dl (6.0-8.3)
--- NOTE | 2022-07-19 07:25 | XRay Report ---
SINGLE VIEW CHEST CLINICAL HISTORY: Atypical chest pain FINDINGS: An AP, portable, upright chest radiograph is compared to study dated 03/23/2022. The heart is enlarged note atherosclerotic calcification of the thoracic aorta. There is mild pulmonary vascular congestion. Scarring/atelectasis is noted at the lung bases. The lungs and pleural spaces are clear. No large pleural effusion or pneumothorax is seen. The skeletal structures are osteopenic. The bony t horax is grossly intact. IMPRESSION: Cardiomegaly with pulmonary vascular congestion. ACT 112: Negative or not required by law. Electronically signed by: Ravinder Carlton M.D. 07/19/2022 7:23 AM
[2022-07-19] MEDS ORDERED: POTASSIUM CHLORIDE CRTAB 20 MEQ TABCR PO STA (08:13)
[2022-07-19] MEDS: DRONEDARONE HCL 400 MG TAB PO SCH ×2 (08:26→16:52)
[2022-07-19] MEDS: MAGNESIUM SULFATE / D5W 1 GM/100 ML BAG IV SCH ×2 (08:38→10:53)
[2022-07-19] MEDS ORDERED: METOPROLOL SUCC 50MG EXT REL TAB PO SCH (09:00)
[2022-07-19] MEDS ORDERED: APIXABAN 5 MG TABLET PO SCH (09:00)
[2022-07-19] MEDS ORDERED: VITAMIN B COMPLEX TAB PO SCH (09:00)
[2022-07-19] MEDS ORDERED: THIAMINE HCL 100 MG TAB PO SCH (09:00)
[2022-07-19] MEDS ORDERED: CYANOCOBALAMIN (B-12) 500 MCG TABLET PO SCH (09:00)
[2022-07-19] MEDS ORDERED: CHOLECALCIFEROL 5,000 UNITS 125 MCG TAB PO SCH (09:00)
[2022-07-19] MEDS ORDERED: FOLIC ACID 1 MG TAB PO SCH (09:00)
[2022-07-19] MEDS ORDERED: FUROSEMIDE 40 MG/4 ML VIAL IV SCH (09:00)
--- NOTE | 2022-07-19 11:47 | XCELERA ---
[id number]
--- NOTE | 2022-07-19 13:39 | Cardiology Consultation ---
Date of Consultation July 19, 2022 Assessment & Plan (1) CHF (congestive heart failure): 2. Persistent atrial fibrillationon dronedarone, Eliquis 3. Bicuspid aortic valve with mild , 4. Mild mitral regurgitation 5. Preserved LV function 6. Hypertension 7. Intermittent right bundle branch block 8. Prolonged QTc 9. Elevated LFTs Admitted with worsening shortness of breath secondary to acute heart failure. Responded well to IV diuretics, with resolved dyspnea and no significant residual congestion on exam this morning. No clear precipitants for patient's acute heart failure. Symptoms seem to have proceeded cardioversion. No signs of ischemia and LV function unchanged. Relatively low suspicion acute heart failure related to recently started dronedarone. Discussed with patient's primary yarn mercerizer operator helper/EP Dr. Sosa. For now wishes to continue further attempts at maintaining sinus rhythm with dronedarone. Plan going forward: Transition to maintenance Lasix 20 mg daily Continue dronedarone 400 mg twice daily. No other clear QT prolonging meds. Will repeat ECG today and will need close outpatient electrolyte, QTc monitoring Continue Eliquis, Toprol-XL. Continue current lisinopril. SGLT2 could be considered as an outpatient. From a cardiac standpoint okay with discharge today. As scheduled follow-up with Dr. Sosa on 08/03. History of Present Illness Attending Physician: Nawaf Montano MD History of Present Illness Ms. Hairston is a very pleasant 72-year-old woman with a history of persistent atrial fibrillation, bicuspid aortic valve admitted yesterday with shortness of breath in the setting of acute heart failure. Patient is followed by Dr. Sosa for her cardiac care. She has a long history of atrial fibrillation with intermittent RVR. Has had prior cardioversions, unable to maintain rhythm on flecainide. More recently was started on to note around 1 month ago. States that over the last month has felt better although remained in rate controlled AF. Yesterday underwent successful electrical cardioversion to sinus rhythm. Preprocedure patient states she had noted that she was feeling more short of br eath over the preceding day. Post procedure continued to have mild shortness of breath most notably with exertion. Describes feeling of just being unable to take a deep breath in. Symptoms persisted and presented to ED yesterday evening. On arrival ECG again showed sinus bradycardia. Chest x-ray showed pulmonary vascular congestion, BNP 600, HS TropI negative. Received IV Lasix and -1500 overnight. Has maintained sinus rhythm. Repeat ECG today showed QTc of 500. Magnesium/potassium supplemented Today she reports feeling well. No shortness of breath with walking across her room. Other medical issues include hypertension, dyslipidemia, questionable prior history of TIA. Also with GERD degenerative disc disease and insomnia. Social history: , retired. 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 Remote tobacco use, quit age 36. Occasional alcohol. Allergies Allergy/AdvReac Type Severity Reaction Status Date / Time bacitracin Allergy Mild Rash Verified 07/18/22 21:13 [From Polysporin(bacitracin base)] polymyxin B Allergy Mild Rash Verified 07/18/22 21:13 [From Polysporin(bacitracin base)] Sulfa (Sulfonamide Allergy Mild RASH all Verified 07/18/22 21:13 Antibiotics) over body, skin tingles clavulanic acid AdvReac Intermediate Diarrhea Verified 07/18/22 21:13 [From Augmentin] levofloxacin [From Levaquin] AdvReac tendonitis Verified 07/18/22 21:14 Home Medications Medication Instructions Recorded Confirmed Type propylene glycol 0.6 % eye drops 1 drp ophthalmic (eye) DIRECTED 08/09/18 07/18/22 History PRN Dry Eye(S) estradiol 10 mcg vaginal tablet 5 mcg vaginal 2XWK 04/17/19 07/18/22 History (Yuvafem) cholecalciferol (vitamin D3) 125 125 mcg PO QAM 05/05/21 07/18/22 History mcg (5,000 unit) tablet (Vitamin D3) vitamin B complex 1 tab PO QAM 05/05/21 07/18/22 History mecobalamin (vitamin B12) 1,000 1,000 mcg PO DAILY #90 tabs 06/22/21 07/18/22 Rx mcg chewable tablet apixaban 5 mg tablet (Eliquis) 5 mg PO BID #180 tabs 01/10/22 07/18/22 Rx hydroxyzine HCl 25 mg tablet 50 mg PO HS PRN insomnia 30 days 01/10/22 07/18/22 Rx #60 tabs eszopiclone 2 mg tablet 2 mg PO HS #30 tabs 03/13/22 07/18/22 Rx lisinopril 40 mg tablet 40 mg PO HS #90 tabs 03/29/22 07/18/22 Rx fluticasone propionate 50 1 spray intranasal DAILY 06/06/22 07/18/22 History mcg/actuation nasal spray,suspension omeprazole 20 mg capsule,delayed 20 mg PO HS 06/06/22 07/18/22 History release dronedarone 400 mg tablet (Multaq) 400 mg PO BID #60 tabs 07/04/22 07/18/22 Rx atorvastatin 10 mg tablet 10 mg PO HS #90 tabs 07/13/22 07/18/22 Rx metoprolol succinate 200 mg 200 mg PO QAM 07/13/22 07/18/22 History tablet,extended release 24 hr oxymetazoline 0.05 % nasal spray 1 spray intranasal Q12H PRN Nasal 07/18/22 07/18/22 History (Afrin Sinus (oxymetazoline)) Congestion Patient History Medical History (Updated 07/18/22 @ 23:08 by Jorge Otero MD) Anxiety disorder Atrial fibrillation Atrial fibrillation with RVR per pt for last 6 months has been in A fib--follows with Dr. Sosa Bicuspid aortic valve monitored by cardio; per recent note, 'gradient not sufficient to require further evaluation or treatment at this time'; most recent ECHO 11/2020 Biliary dyskinesia Contracture of finger joint Gastroesophageal reflux disease History of TIA (transient ischemic attack) Per cardio records - per patient - no TIA- dx'ed instead with severe migraine. Has followed with neuro years ago Hyperlipidemia Hypertension Injury of right rotator cuff Insomnia Left knee DJD follows with ortho; receives synvisc Lumbar facet arthropathy Migraine Initially thought to be a TIA several years ago. Saw Dr. Grant > was a severe migraine per pt . Pt was placed on ASA for likely microvascular disease and now on Eliquis for Afib Mitral regurgitation mild per 2020 ECHO On anticoagulant therapy prior hx of TIA and current AFib Osteopenia Raynauds phenomenon RBBB possibly rate dependent per Cardio; monitoring with current Afib Right knee DJD follows with ortho; receives synvisc Tremor of left hand Surgical History History of cardioversion last 06/09/22 @ [facility] Hx of section x1 Hx of colonoscopy Hx of hand surgery right Hx of tonsillectomy Lipoma removed from arm Status post epidural steroid injection Family History Mother , age 61 of an [place] Dyslipidemia Heart disease Myocardial infarction Stroke Aunt Lung cancer Uncle Lung cancer Father , at 67 of heart failure Heart disease Daughter Migraine Grandmother (Maternal) Myocardial infarction Other No family history of adverse response to anesthesia Denies family history of Ovarian cancer Prostate cancer Breast cancer Colorectal cancer Social History Smoking Status: Former smoker Tobacco Type: Cigarettes Age Started Using Tobacco: 18; Age Quit Using Tobacco: 36; packs per day: 1; Second Hand Exposure: No; Do You Dip or Chew Tobacco: No; Hx Alcohol Use: Yes Alcohol type: beer Alcohol type Comment: 3-4 Alcohol Intake Frequency Comment: patient has 3 or 4 drinks of beer and/or wine per day and has been doing t Hx Substance Use: No Preferred Language: Frisian Communication Ability: Effective Visual Impairment: No Limitations Hearing Ability: Normal Animal Sitter Required: No Beliefs That Will Affect Care: None marital status: Current Living Situation: Spouse current occupational status: retired 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 No JVD Vascular: 2+ radial, DP pulses. No bruits Abdomen: Soft, nontender Extremities: Well perfused, no peripheral edema Neuro: Nonfocal Psych: Alert orient x3, normal affect and mood Results & Data Vital Signs (Past 12 Hours) Vital Signs Temp Pulse Pulse Resp BP Pulse Ox O2 Del Method 07/19/22 10:38 98.4 F 56 L 18 119/79 95 Room Air 07/19/22 08:43 98.4 F 62 18 107/71 94 Room Air 07/19/22 08:00 6 L 07/19/22 03:00 99.0 F 59 L 19 111/68 92 Room Air PG Care Time/CCT Total # of Minutes Spent Total Time Spent with Patient: Total time spent is greater than 50% in coordination of care (as documented) at patient's floor/unit and/or counseling patient: Coding Level of Care Code 28375 INT INP/OBS CARE 2/55MIN Diagnoses CHF (congestive heart failure) I50.9
[2022-07-19] MEDS ORDERED: POTASSIUM CHLORIDE CRTAB 20 MEQ TABCR PO SCH (14:00)
--- NOTE | 2022-07-19 15:29 | Discharge Summary ---
Date of Service July 19, 2022 Admission HPI Per Admitting Provider The patient is a 72-year-old female with a past medical history including atrial fibrillation, hypertension, hyperlipidemia, anxiety disorder, small vessel disease of brain, aortic stenosis, long-term use of anticoagulant, Raynaud's and history of TIA/stroke. Patient presents with the symptoms as noted above. Significant abnormal laboratories: AST 110, ALT 126, BNP 629 Viral panel is negative. In the ED the patient received the following: DuoNeb, hydralazine 5 mg IV, furosemide 40 mg IV and lorazepam 0.5 mg IV.. Discharge Data Allergies Allergy/AdvReac Type Severity Reaction Status Date / Time bacitracin Allergy Mild Rash Verified 07/18/22 21:13 [From Polysporin(bacitracin base)] polymyxin B Allergy Mild Rash Verified 07/18/22 21:13 [From Polysporin(bacitracin base)] Sulfa (Sulfonamide Allergy Mild RASH all Verified 07/18/22 21:13 Antibiotics) over body, skin tingles clavulanic acid AdvReac Intermediate Diarrhea Verified 07/18/22 21:13 [From Augmentin] levofloxacin [From Levaquin] AdvReac tendonitis Verified 07/18/22 21:14 Consultations 07/18/22 21:34 ED Decision to Admit Stat 07/18/22 23:59 Consult Cardiology Routine Discharge Plan Discharge Items Reason For Visit: TROUBLE BREATHING Discharge Diagnosis: 1. acute diastolic congestive heart failure with fluid build-up in the lungs - improved 2. atrial fibrillation with cardioversion on 07/18/22; normal rhythm during your stay 3. hypokalemia (low potassium) 4. hypomagnesemia (low magnesium) 5. abnormal liver function tests - possibly due to #1, alcohol, or other factors - repeat liver tests needed 1 week 6. bicuspid aortic valve Activity: As commented below Activity Comment: gradually increase activities over the next week Non-emergency contact: Primary Care Provider and Metal Template Maker Call non-emergency contact if: you have any medication questions and your symptoms worsen Follow-up/Referrals: Brenton Sosa MD [Physician] - 08/03/22 Thi Hill MD [Primary Care Provider] - (5-7 days ) Diet: Heart Healthy Fluids: 1800ml (7 cups) Addtl Attending Provider Instructions: Mrs Hairston, You were treated for fluid build-up in the lungs due to "diastolic congestive heart failure." (see handout for more information) The fluid build-up was the cause of your shortness of breath. You improved with diuretics (furosemide intravenously). The diuretics removed the excess fluid build-up from the body but especially in the lungs. It is possible that your recent troubles with a.fib could have contributed to the fluid build-up. Too much fluid day to day can cause exacerbations of diastolic congestive heart failure. There are other factors as well (too much salt, elevated blood pressure, etc). Dr Osmani Lynn from [facility] cardiology saw you in consult. A repeat echocardiogram was performed -- this shows that your heart pumps well (the ejection fraction, which is the pumping number of the heart, was normal) but you do have diastolic dysfunction. The aortic valve also has mild stenosis or narrowing. The valve issue is unlikely contributing to any problems at this time. Cardiology recommends a daily diuretic to prevent the fluid retention. Recommendations - 1. furosemide 20mg once each morning. Take your first dose on 07/20/22. This is your diuretic. 2. take potassium and magnesium supplements; start these tomorrow on 07/20/22. 3. limit total fluid intake to no more than about 1800ml in a 24-hour period; this includes all liquids (coffee, water, alcohol, juice, etc). 4. limit total salt intake to no more than 2000mg in a 24-hour period. 5. check your weight every morning on the same scale; write these numbers in a notebook to keep track. (see section below for more details). 6. your liver function tests were mildly high upon admission. These improved while here. It is possible that fluid congestion in the liver caused this. You will need repeat liver tests in about a week. 7. HOLD your statin (atorvastatin) cholesterol medication due to the high liver tests. 8. limit alcohol intake to no more than 2 beverages per day if possible. Follow-up - see separate section Return to [facility] if - * you have worsening shortness of breath * you are having chest pains * you are concerned you are back in a.fib and your pulse (heart rate) is consistently over 100 * you feel dizzy or lightheaded * any other concerns It was our pleasure caring for you! 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 Provider Instructions: Congestive Heart Failure Instructions - Call 911 and go to the Emergency Room if: * You have tightness or pain in your chest that does not go away with rest or Nitroglycerin * You are very short of breath even with rest Call your doctor if any of the following symptoms or problems start or get worse: * Shortness of breath or difficulty breathing * Wake up at night short of breath * Chest pain * Cough * Swelling of your hands, fee, or legs * More fatigued or tired with your normal activity * Palpitations - sudden fast heart beats WEIGHT * Weigh yourself every morning after using the bathroom. * Use the same scale. * Wear the same amount of clothing. * Write your weight down on your chart. * Call your doctor if you gain more than 2-3 pounds in 1-2 days. This is typically the first sign of fluid weight gain from congestive heart failure. MEDICATIONS * Use this discharge instruction sheet for instructions. * Take your medications at the time your doctor ordered. * Do not skip a dose of your medicines. * If you miss a dose of medicine, take as soon as possible, but DO NOT DOUBLE A DOSE. * Read your medicine information when you get home. * Know all of the side effects of your medicine. * Call your doctor's office if you have any side effects. * Be sure all of your doctors know what medicine and herbs you take (including cold, flu, and herbal medicine). * Pain Medicine: If you do not get relief from your pain, please call your doctor for help. Take the following with you to your follow-up doctor appointments: * Weight Chart * Medication List * List of questions Do not drink excessive alcohol, beer or wine. Pending Studies at Discharge: No Stand-Alone Forms: My [facility] BRIKA, Smoking Cessation Medications and DC Order Prescriptions: New furosemide [Lasix] 20 mg tablet 20 mg PO QAM Qty: 30 2RF magnesium oxide 400 mg magnesium tablet 400 mg PO DAILY Qty: 30 2RF potassium chloride 10 mEq tablet extended release 10 meq PO DAILY Qty: 30 2RF Continued mecobalamin (vitamin B12) 1,000 mcg tablet,chewable 1,000 mcg PO DAILY Qty: 90 3RF hydroxyzine HCl 25 mg tablet 50 mg PO HS PRN (Reason: insomnia) 30 Days Qty: 60 5RF Hold Instructions: hold while on Levofloxacin Eliquis 5 mg tablet 5 mg PO BID Qty: 180 3RF eszopiclone 2 mg tablet 2 mg PO HS Qty: 30 5RF lisinopril 40 mg tablet 40 mg PO HS Qty: 90 1RF Multaq 400 mg tablet 400 mg PO BID Qty: 60 2RF Rx Instructions: must administer with a meal/food propylene glycol 0.6 % Drops 1 drp OPHTHALMIC (EYE) DIRECTED PRN (Reason: Dry Eye(S)) estradiol [Yuvafem] 10 mcg tablet 5 mcg VAGINAL 2XWK omeprazole 20 mg capsule,delayed release(DR/EC) 20 mg PO HS fluticasone propionate 50 mcg/actuation [place],Suspension 1 spray INTRANASAL DAILY Rx Instructions: administer into each nostril metoprolol succinate 200 mg tablet extended release 24 hr 200 mg PO QAM cholecalciferol (vitamin D3) [Vitamin D3] 125 mcg (5,000 unit) Tablet 125 mcg PO QAM vitamin B complex Tablet 1 tab PO QAM oxymetazoline [Afrin Sinus (oxymetazoline)] 0.05 % [place],Non-Aerosol 1 spray INTRANASAL Q12H PRN (Reason: Nasal Congestion) Held atorvastatin 10 mg tablet 10 mg PO HS Qty: 90 1RF Hold Instructions: hold until liver function tests have been rechecked and are normal Admission Data Admit Date/Time: 07/18/22 22:19 Attending Provider: Nawaf Montano Admit Provider: Jorge Otero Primary Care Provider: Thi Hill V. Other Providers: Jorge Otero ; Brenton Sosa Coding Diagnoses
[2022-07-19] MEDS ORDERED: ATORVASTATIN 10 MG TAB PO SCH (21:00)
[2022-07-19] MEDS ORDERED: PANTOprazole 40 MG TAB PO SCH (21:00)
[2022-07-19] MEDS ORDERED: lisinopril 40 MG TAB PO SCH (21:00)
[2022-07-19] MEDS ORDERED: ESZOPICLONE 1 MG TAB PO SCH (21:00)
--- NOTE | 2022-07-21 05:04 | Electrocardiogram Report ---
Test Reason : Blood Pressure : / mmHG Vent. Rate : 069 BPM Atrial Rate : 069 BPM P-R Int : 208 ms QRS Dur : 078 ms QT Int : 432 ms P-R-T Axes : 055 076 061 degrees QTc Int : 462 ms Sinus rhythm with Premature atrial complexes Otherwise normal ECG When compared with ECG of 18-JUL-2022 08:11, Premature atrial complexes are now Present Confirmed by Dylan Stover ([id number]) on 07/21/2022 5:04:19 AM Referred By: REFERRED SELF Confirmed By:Dylan Stover
--- NOTE | 2022-07-21 05:27 | Electrocardiogram Report ---
Test Reason : Blood Pressure : / mmHG Vent. Rate : 063 BPM Atrial Rate : 063 BPM P-R Int : 198 ms QRS Dur : 082 ms QT Int : 498 ms P-R-T Axes : 061 080 074 degrees QTc Int : 509 ms Normal sinus rhythm Prolonged QT Abnormal ECG When compared with ECG of 18-JUL-2022 19:42, Premature atrial complexes are no longer Present QT has lengthened Confirmed by Dylan Stover ([id number]) on 07/21/2022 5:27:09 AM Referred By: REFERRED SELF Confirmed By:Dylan Stover
--- NOTE | 2022-07-22 06:13 | Electrocardiogram Report ---
Test Reason : Blood Pressure : / mmHG Vent. Rate : 054 BPM Atrial Rate : 054 BPM P-R Int : 186 ms QRS Dur : 090 ms QT Int : 516 ms P-R-T Axes : 058 076 069 degrees QTc Int : 489 ms Sinus bradycardia Prolonged QT When compared with ECG of 19-JUL-2022 06:01, No significant change was found Confirmed by Dylan Stover ([id number]) on 07/22/2022 6:13:14 AM Referred By: REFERRED SELF Confirmed By:Dylan Stover
== END 2022-07-19 17:30 | disposition home or self-care (01) ==
LOC: ED 19:13 → 2S 19:13 → SUATTDRO 22:19 → 2S 23:18

== ENCOUNTER 2023-06-11 14:52 | Inpatient (IN) ==
[2023-06-11] MEDS ORDERED: POLYETHYLENE (MIRALAX) 17 GM PACK PO PRN (15:37)
[2023-06-11] MEDS ORDERED: ALUMINUM/MAGNESIUM SUSP 30 ML UDC PO PRN (15:37)
[2023-06-11] MEDS ORDERED: ACETAMINOPHEN 325 MG TAB PO PRN (15:37)
[2023-06-11] MEDS ORDERED: ONDANSETRON INJ 2 MG/ML 2 ML VIAL IV PRN (15:37)
[2023-06-11] MEDS ORDERED: MAGNESIUM HYDROXIDE SUSP 30 ML UDC PO PRN (15:37)
--- NOTE | 2023-06-11 16:04 | History & Physical Report ---
Date of Service June 11, 2023 Assessment & Plan (1) Atrial fibrillation: (2) Anticoagulant long-term use: Plan 1. Orthostatic hypotension: Currently she is feeling quite well in this regard on her current regimen. 2. Pulmonary edema: She presented in pulmonary edema following cardioversion. This is something which occurs from time to time following cardioversion, it is quite rare and to my knowledge and mechanism is not clear. I do not think she needs to take a diuretic on a regular basis but could keep it as needed. Perhaps she will be at more risk for heart failure in the future. 3. Acute kidney injury: Starting after her pulmonary edema admission her BUN/creatinine increased, the BUN became quite elevated consistent with dehydration. That is improved with discontinuation of diuretics. 4. Atrial fibrillation: In the past we have felt that she was asymptomatic with her atrial fibrillation, but now she notices symptoms such as easy fatigability and dyspnea on exertion when she is in atrial fibrillation, and may also be aware of the irregularity. She feels better in sinus rhythm and can correlate her symptoms with her rhythm is identified on her Fitbit, I am therefore going to continue to try to maintain sinus rhythm with Tikosyn which is often quite effective. 5. Anticoagulation: She is on Eliquis, she is on the correct dose based on her age and weight and I recommended that she continue it. 6. Right bundle branch block: She presented in atrial fibrillation with a right bundle branch block pattern which was new, that was documented during atrial fibrillation at higher heart rates however with sinus rhythm and a slower heart rate that resolved. With better rate control of her atrial fibrillation she did not have a right bundle branch block pattern, however it is present on Multaq at 73 bpm. It may be somewhat rate dependent but perhaps progressive. This does not alter our approach. 7. Bicuspid aortic valve: She has a bicuspid aortic valve but does not have a gradient sufficient to require further evaluation or treatment at this time. We will need to watch this over time with echocardiography. 8. History of TIA: I am not sure the cause of her prior TIAs was specifically determined, no stroke was found on evaluation however I am not sure that would eliminate the possibility of tiny embolic events as a cause. She was felt to have small vessel disease and was on aspirin initially however that has been discontinued with initiation of anticoagulation. So far she has had no recurrence of the symptoms and since aspirin with anticoagulation increases the risk of bleeding substantially I am going to continue the current plan of Eliquis and atorvastatin without aspirin. 9. Hypertension: She has a history of hypertension, on home blood pressure monitoring her blood pressure is quite labile, sometimes low and sometimes high but mostly reasonably well controlled. Her blood pressure is very near, and at least until we get her rhythm under control I am going to increase her metoprolol and also add amlodipine today as a one-time dose. History of Present Illness Chief Complaint: Persistent atrial fibrillation, for antiarrhythmic therapy initiation Primary Care Provider: Thi Hill MD This is a 72-year-old woman with a history of hypertension, dyslipidemia, osteoarthritis, intermittent longstanding diarrhea. She does have a bicuspid aortic valve with minimal stenosis although there was a slightly increased gradient compared to 2013. She did have trace mitral regurgitation at that time. The aortic gradient in March 2020 was 18 mmHg maximum with a calculated valve area of 2.2 cm. Interestingly she also has a history of TIA and is on aspirin, in retrospect perhaps this was cardioembolic although I believe neurology has not identified a specific stroke and it may be due to migraine issues. Because of this I believe she was started on aspirin 81 mg daily which she had been on for years however that has been replaced with Eliquis. On presentation November 11, 2020 an electrocardiogram done at 1812 showed atrial fibrillation with a rapid heart rate of 140 bpm and a right bundle branch block pattern. A follow-up electrocardiogram November 12, 2020 at 1445 showed a better controlled heart rate of 99 bpm with continued right bundle branch block. In comparison an electrocardiogram done March 29, 2020 showed sinus rhythm at 92 bpm with right bundle branch block. She does have a history of excessive alcohol intake which could be contributory. She was rate controlled with addition of metoprolol succinate which was titrated to 150 mg daily and she was anticoagulated with Eliquis. She was discharged still in atrial fibrillation. She did record her blood pressure and heart rate daily at home, interestingly her heart rate was averaging around 100 on her home blood pressure monitoring until November 22, 2020 when it dropped into the 50s and has remained there. I suspect therefore that her atrial fibrillation converted somewhere between November 21 and November 22, 2020. She did not feel any different, she was feeling fatigued which has been gradually improving since discharge but there was no sudden change at the time when her heart rate dropped. This is consistent with her having asymptomatic paroxysmal atrial fibrillation as suspected. She did have her back [place] September 15, 2021 [place] with what sounds like orthostatic symptoms. She noted that when she would stand up she would get very lightheaded, diaphoretic and have double vision, this kept her from being very active and was not associated with palpitations. She noted that she had a back injection January 15, 2022 and after that noted that she developed what she thinks was atrial fibrillation about 2 days later. This was symptomatic and that she was easily fatigued, she noted that her heart rate was elevated over her usual heart rate but still less than 100, her pulse was confirmed to be irregular by her daughter who is a nurse. About 12 days later her heart rate returned to normal and her fatigue resolved. She believes she was in sinus rhythm for only a short time, somewhere in early February 2022 she developed symptoms compatible with atrial fibrillation (which are mild, mostly easy fatigability, not palpitations) and her blood pressure monitor noted an increased heart rate and irregularity. That has remained so she believes she has been in atrial fibrillation continuously since then. During that time time she has been suffering from an upper respiratory infection or sinus infection, she was recently prescribed antibiotics and this has improved, although she is going to make an appointment to see a climatology teacher at [facility] for recurrent upper respiratory infections. She also has some mild dyspnea on exertion which has not changed. She does not have other heart failure symptoms such as orthopnea, PND or peripheral edema and she does not have exertional chest discomfort. I did prescribe flecainide 50 mg twice a day which she tolerated well at that dose and we did perform cardioversion June 09, 2022. She left the hospital in sinus rhythm however felt that her atrial fibrillation returned after about 36 hours. I tried to increase her flecainide to 100 mg twice a day however she developed a lot of symptoms including blurred vision, nausea and disorientation. She did decrease the dose back to 50 mg daily but remained in atrial fibrillation. She continued to have symptoms related to her atrial fibrillation and preferred to be in sinus rhythm therefore dronedarone 400 mg twice a day was prescribed on July 04, 2022. With ongoing atrial fibrillation cardioversion was performed on July 18, 2022, she was discharged however later that day she presented with pulmonary edema and was admitted. An echocardiogram done on the day of discharge showed normal left ventricular size and function with an ejection fraction of 55 to 60% and mild concentric left ventricular hypertrophy. She does have mild aortic stenosis with a bicuspid aortic valve. She was diuresed and discharged on July 19, 2022. On discharge furosemide 20 mg daily was added to her regimen (she had never been on diuretics before and did not have a history of heart failure) and she was advised to cut down her fluid intake to 7-1/2 cups/day and to use between 1200 and 2,000 mg of salt daily. Since that discharge she was initially feeling poorly, and her blood pressure was quite labile and she had orthostatic symptoms. I therefore decreased her metoprolol succinate from 100 mg daily to 50 mg daily on August 23, 2022. She did go to [facility] for a visit sometime in September, I do not have a copy of that evaluation but she wanted to make contact in case she needed an ablation in the future. They agreed with the approach of continuing antiarrhythmic therapy and considering ablation if needed in the future. We have continued Multaq although we did recognize that she was having some breakthrough atrial fibrillation, however she felt relatively well on it (pe rhaps because of its rate controlling effect). She does have a Fitbit watch now and she has been monitoring her rhythm, she notes that she has had 16 days showing atrial fibrillation and only 11 days without atrial fibrillation. The episodes are clearly paroxysmal and she has not had prolonged episodes of atrial fibrillation. She is not having side effects on the metoprolol, in fact feels fairly well on it, but does confirm that she definitely feels better when she is in sinus rhythm with increased energy and stamina. When she is in atrial fibrillation she feels fatigued and tired. Multaq is evidently not very effective (based on her Fitbit but that seems to be relatively reliable) and therefore I think we need to use a different agent. She is agreeable to try a different agent and we discussed options including Tikosyn and amiodarone. I think Tikosyn would be preferable due to the lack of toxicity but it does require a hospitalization. She is agreeable to this and she is being admitted for initiation of Tikosyn. I will start 250 mg twice a day. She was recently in [place] where she had a brief admission for a urinary tract infection and has recovered from this. From cardiovascular standpoint she is feeling relatively well although she does make her heart rate and notes that she has been in atrial fibrillation and has been taking extra metoprolol succinate, she is taking 150 mg daily in the morning. Allergies Allergy/AdvReac Type Severity Reaction Status Date / Time bacitracin Allergy Mild Rash Verified 05/10/23 13:06 [From Polysporin(bacitracin base)] polymyxin B Allergy Mild Rash Verified 05/10/23 13:06 [From Polysporin(bacitracin base)] Sulfa (Sulfonamide Allergy Mild RASH all Verified 05/10/23 13:06 Antibiotics) over body, skin tingles clavulanic acid AdvReac Intermediate Diarrhea Verified 05/10/23 13:06 [From Augmentin] levofloxacin [From Levaquin] AdvReac tendonitis Verified 05/10/23 13:06 Seasonal allergies Allergy Mild Sneezing Uncoded 05/10/23 13:06 Home Medications Medication Instructions Recorded Confirmed Type propylene glycol 0.6 % eye drops 1 drp ophthalmic (eye) DIRECTED 08/09/18 05/10/23 History PRN Dry Eye(S) estradiol 10 mcg vaginal tablet 5 mcg vaginal 2XWK 04/17/19 05/10/23 History (Yuvafem) fluticasone propionate 50 1 spray intranasal DAILY 06/06/22 05/10/23 History mcg/actuation nasal spray,suspension omeprazole 20 mg capsule,delayed 20 mg PO HS 06/06/22 05/10/23 History release oxymetazoline 0.05 % nasal spray 1 spray intranasal Q12H PRN Nasal 07/18/22 05/10/23 History (Afrin Sinus (oxymetazoline)) Congestion atorvastatin 10 mg tablet 10 mg PO HS #90 tabs 11/07/22 05/10/23 Rx cholecalciferol (vitamin D3) 50 50 mcg PO 3XWK 12/08/22 05/10/23 History mcg (2,000 unit) capsule vitamin B complex 1 tab PO 3XWK 12/08/22 05/10/23 History loperamide 2 mg capsule See Rx Instructions .Route 12/19/22 05/10/23 History .COMPLEX PRN Diarrhea apixaban 5 mg tablet (Eliquis) 5 mg PO BID #180 tabs 01/08/23 05/10/23 Rx hydroxyzine HCl 25 mg tablet 50 mg (2 x 25 mg) PO HS PRN 01/11/23 05/10/23 Rx insomnia 30 days #60 tabs metoprolol succinate 50 mg 50 mg PO QAM #90 tabs 02/13/23 05/10/23 Rx tablet,extended release 24 hr lisinopril 40 mg tablet 40 mg PO HS #90 tabs 04/16/23 05/10/23 Rx dronedarone 400 mg tablet (Multaq) 400 mg PO BID #180 tabs 04/26/23 05/10/23 Rx azelastine 137 mcg (0.1 %) nasal 2 spray intranasal DAILY #90 mL 05/04/23 05/10/23 Rx spray aerosol promethazine 12.5 mg tablet 12.5 mg PO TID PRN nausea and 05/09/23 05/10/23 Rx vomiting #30 tabs furosemide 20 mg tablet 20 mg PO .COMPLEX 05/10/23 05/10/23 History promethazine 25 mg tablet 25 mg PO Q6H PRN 05/10/23 05/10/23 History magnesium oxide 400 mg PO Q OTHER DAY #15 tabs 05/17/23 Rx doxycycline monohydrate 100 mg 100 mg PO BID 10 days #20 caps 05/22/23 05/22/23 Rx capsule fluticasone 250 mcg-salmeterol 50 1 inh inhalation BID #60 ea 05/22/23 05/22/23 Rx mcg/dose blistr powdr for inhalation (Advair Diskus) mupirocin 2 % topical ointment 1 applic topical BID #22 grams 05/22/23 05/22/23 Rx eszopiclone 2 mg tablet 2 mg PO HS sleep #30 tabs 06/08/23 Rx Past Med/Surg History Medical History Pulmonary edema Left knee DJD follows with ortho; receives synvisc Right knee DJD follows with ortho; receives synvisc Impingement syndrome of right shoulder region Bilateral primary osteoarthritis of knee Orthostatic hypotension Acute diastolic CHF (congestive heart failure) Hypoxia CHF (congestive heart failure) History of TIA (transient ischemic attack) Per cardio records - per patient - no TIA- dx'ed instead with severe migraine. Has followed with neuro years ago Migraine Initially thought to be a TIA several years ago. Saw Dr. Grant > was a severe migraine per pt . Pt was placed on ASA for likely microvascular disease and now on Eliquis for Afib On anticoagulant therapy prior hx of TIA and current AFib Biliary dyskinesia Lumbar facet arthropathy Hypertension Hyperlipidemia Anxiety disorder Atrial fibrillation with RVR per pt for last 6 months has been in A fib--follows with Dr. Sosa RBBB possibly rate dependent per Cardio; monitoring with current Afib Tremor of left hand Mitral regurgitation mild per 2020 ECHO Bicuspid aortic valve monitored by cardio; per recent note, 'gradient not sufficient to require further evaluation or treatment at this time'; most recent ECHO 07/2022 Contracture of finger joint right hand Gastroesophageal reflux disease Insomnia Osteopenia Raynauds phenomenon Surgical History History of cataract surgery bilateral History of cardioversion last 06/09/22 @ [facility] Status post epidural steroid injection Lipoma removed from arm Hx of tonsillectomy Hx of hand surgery right Hx of colonoscopy Hx of section x1 Family History Mother , age 61 of an PR Dyslipidemia Heart disease Myocardial infarction Stroke Hypertension Aunt Lung cancer Uncle Lung cancer Father , at 67 of heart failure Heart disease Daughter Migraine Grandmother (Maternal) Myocardial infarction Other No family history of adverse response to anesthesia Denies family history of Ovarian cancer Prostate cancer Breast cancer Colorectal cancer Social History Smoking Status: Never smoker Tobacco Type: Cigarettes Age Started Using Tobacco: 18; Age Quit Using Tobacco: 36; packs per day: 1; Second Hand Exposure: No; Do You Dip or Chew Tobacco: No; Hx Alcohol Use: Yes Alcohol type: beer and wine Alcohol type Comment: 3-4 Alcohol Intake Frequency Comment: patient has 3 or 4 drinks of beer and/or wine per day and has been doing t Hx Substance Use: No Preferred Language: Mongolian Communication Ability: Effective Visual Impairment: No Limitations Hearing Ability: Normal Leather Cartridge Belt Maker Required: No Beliefs That Will Affect Care: None marital status: Current Living Situation: Spouse current occupational status: retired 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 HEENT: Unremarkable Neck: No jugular venous distention, carotid pulses are normal and equal bilate rally without bruits. Pulmonary: Clear to auscultation bilaterally. Cardiac: Irregular rhythm with a grade 2/6 holosystolic murmur at the apex, no gallop or rub. Abdomen: Soft, nontender with normal bowel sounds. Extremities: No edema. Distal pulses intact. Neurologic: No focal findings. Gait is steady. Skin: No rash, ecchymoses or petechiae. Code Status & VTE Plan VTE Prophylaxis Plan VTE Prophylaxis will be ordered: No Reason for no VTE drug order: Contraindicated PG Care Time/CCT Total # of Minutes Spent Total Time Spent with Patient: Total time spent is greater than 50% in coordination of care (as documented) at patient's floor/unit and/or counseling patient: Coding Level of Care Code 37221 INT INP/OBS CARE 2/55MIN Diagnoses Paroxysmal atrial fibrillation I48.0 Atrial fibrillation type: paroxysmal Anticoagulant long-term use Z79.01 (1) Atrial fibrillation Atrial fibrillation type: paroxysmal Qualified Code(s): I48.0 - Paroxysmal atrial fibrillation
[2023-06-11] MEDS: amLODIPine BESYLATE 5 MG TAB PO ONE (17:11)
[2023-06-11] MEDS: METOPROLOL TARTRATE 50 MG TAB PO STA (17:11)
[2023-06-11 17:38] LABS: Anion Gap 10 (3-11); BUN Creatinine Ratio 16.3 (10-20); Blood Urea Nitrogen 14 mg/dl (6-23); Calcium 9.3 mg/dl (8.6-10.3); Carbon Dioxide 24 mmol/L (21-32); Chloride 101 mmol/L (98-107); Est GFR (African American) 78.2 ml/min; Est GFR (Non-African American) 67.5 ml/min; Glucose 85 mg/dl (70-99(Fasting)); Magnesium 1.6 mg/dl (1.7-2.4); Potassium 3.8 mmol/L (3.5-5.1); Sodium 135 mmol/L (136-145)
[2023-06-11] MEDS ORDERED: DOFETILIDE 125 MCG CAPSULE PO SCH (21:00)
[2023-06-11] MEDS: MAGNESIUM SULFATE / D5W 1 GM/100 ML BAG IV SCH (21:27)
[2023-06-11] MEDS: APIXABAN 5 MG TABLET PO SCH (21:28)
[2023-06-11] MEDS: lisinopril 40 MG TAB PO SCH (21:28)
[2023-06-11] MEDS: ZOLPIDEM TARTRATE 5 MG TAB PO PRN (22:24)
--- OUTSIDE RECORDS SUMMARY | 2023-06-12 04:46 | External Medical Summary | Summary of Care ---
Author Name Unknown Organization [facility] Address [address] [facility] [place] [address] Phone [phone] Care Team Providers Care Recycle Driver Name Role Phone Thi Aldana MD [facility] Care Provider Reason for Visit * Reason Onset Date Comments Test Results 06/08/2023 Encounter Details Date Type Department Care Team (Late st Contact Info) Description 06/08/2023 Telephone Gastroenterology, [facility] [address] [place] [address] Radha Resendiz CRNP [address] [place] [address] Test Results Allergies Active Allergy Reactions Criticality Noted Date Comments Bacitracin-Polymyxin B Rash High 05/31/2015 Other reaction(s): red and itchy no shortness of breath Clavulanic Acid High 07/18/2022 Other Reaction(s): Diarrhea Levofloxacin 07/18/2022 Other Reaction(s): Other: See Comments, tendonitis Tendonitis Sulfa Antibiotics Rash High 05/31/2015 Other reaction(s): mild rash, with tingling, no S.O.B documented as of this encounter (statuses as of 06/08/2023) Medications Medication Sig Dispensed Refills Start Date End Date Status Vitamin D 50 MCG (1999) Oral CapsuleIndications: takes at supper Take 5,000 Units by mouth daily with dinner. Indications: takes at supper 0 Active Lisinopril 40 MG Oral TabletIndications:t akes at supper Take 1 Tablet by mouth in the morning. 0 Active Atorvastatin Calcium 10 MG Oral Tablet (Lipitor)Indication s:takes at bedtime Take 1 Tablet by mouth in the morning. 0 Active Estradiol 10 MCG Vaginal Tablet Administer 10 mcg into the vagina as needed. 0 Active ZyrTEC Allergy 10 MG Oral Capsule (Cetirizine HCl)Indications:phil es at night Take 1 Capsule by mouth at bedtime. 0 Active Omeprazole Magnesium 10 MG Oral Packet (PriLOSEC) Take 20 mg by mouth 2 times a day. 0 Active Eszopiclone 2 MG Oral Tablet Take 1 Tablet by mouth at bedtime. 0 Active hydrOXYzine HCl 25 MG Oral Tablet Take 2 Tablets by mouth at bedtime. 0 Active Propylene Glycol 0.6 % Ophthalmic Solution Instill 1 Drop into eye. 0 Active Metoprolol Succinate 100 MG Oral Capsule ER 24 Hour Sprinkle Take 150 mg by mouth daily. 0 Active Apixaban 5 MG Oral Tablet Take 1 Tablet by mouth in the morning and 1 Tablet before bedtime. 0 Active B Complex-C Oral Tablet (Therapeutic B Complex w/C) Take 1 Tablet by mouth in the morning. 0 Active Multaq 400 MG Oral Tablet TAKE 1 TABLET BY MOUTH TWICE A DAY WITH MEAL/FOOD 0 08/03/2022 Active Flecainide Acetate 50 MG Oral Tablet (Tambocor) Take 1 Tablet by mouth in the morning and 1 Tablet before bedtime. 0 05/28/2022 Active Magnesium Oxide -Mg Supplement 400 (240 Mg) MG Oral Tablet (Mag-Ox) Take 1 Tablet by mouth daily before dinner. 0 08/12/2022 Active Fluticasone Propionate 50 MCG/ACT Nasal Suspension (Flonase) Administer 1 [place] into nostril in the morning. 0 Active Colestipol HCl 1 GM Oral Tablet (Colestid) Take 1 Tablet by mouth in the morning. 90 Tablet 3 10/31/2022 Active Additional Information Patient not taking.Reported on 04/25/2023 Azelastine HCl 137 MCG/SPRAY Nasal Solution at bedtime. 0 03/23/2023 Active Loperamide HCl 2 MG Oral Capsule (Imodium) Take 1 Capsule by mouth 4 times a day as needed for Diarrhea. 0 Active Promethazine HCl 25 MG Oral Tablet (Phenergan) Take 1 Tablet by mouth every 6 hours as needed for Nausea. 30 Tablet 5 04/25/2023 Active documented as of this encounter (statuses as of 06/08/2023) Active Problems No known active problems documented as of this encounter (statuses as of 06/08/2023) Immunizations Name Administration Dates Next Due COVID-19 mRNA, LNP-s, No Pre serve, 2-Dose Series ([employer]) 04/20/2020,03/23/2020 documented as of this encounter Social History Tobacco Use Types Packs/Day Years Used Date Smoking Tobacco: Former Cigarettes 1 17 Smokeless Tobacco: Never Alcohol Use Standard Drinks/Week Comments Yes 0 (1 standard drink = 0.6 oz pur e alcohol) BEER, 3-4 DRINKS A NIGHT Sex and Gender Information Value Date Recorded Sex Assigned at Not on file Gender Identity Not on file Sexual Orientation Not on file Job Start Date Occupation Industry Not on file Not on file Not on file documented as of this encounter Miscellaneous Notes * Telephone Encounter - Laura Sibley RN - 06/08/2023 2:25 PM EDT This has been fully explained to the patient, who indicates understanding. Pt states she has been hyponatremic for "years." And has followed with PCP for this yearly. * Telephone Encounter - Laura Sibley RN - 06/08/2023 2:22 PM EDT ----- Message from BIRD Pardo sent at 06/08/2023 9:45 AM EDT ----- Lorella pt Please let her know kidney tests are stable Liver function tests are normal Her NA was slightly low, should follow up with PCP for this to get it rechecked BIRD Villanueva 06/08/2023 9:45 AM * Telephone Encounter - Laura Sibley, RN - 06/08/2023 2:22 PM EDT ----- Message from BIRD Pardo sent at 06/08/2023 11:15 AM EDT ----- Beth pt Coag returned slightly high at 1.3 CBC stable UA negative Plan per lorellas encounters. BIRD Villanueva 06/08/2023 11:15 AM documented in this encounter Plan of Treatment Upcoming Encounters Date Type Department Care Team (Late st Contact Info) Description 08/06/2023 2:00 PM EDT Office Visit Gastroenterology, [facility] [address] [facility] [place] [address] Beth Mosqueda CRNP [address] [facility] [place] [address] Scheduled Procedures Name Priority Associated Diagnoses Date/Ti me ESOPHAGOGASTRODUODENOSCOPY ( EGD), FLEXIBLE, TRANSORAL, DIAGNOSTIC Recall Nausea and vomiting, unspecified vomiting type Health Maintenance Due Date Last Done Comments DXA Scan 1950 Lipid Panel 1950 Depression Screening 1962 Hepatitis C Screening 1968 DTaP,Tdap,and Td Vaccines (1 - Tdap) 1969 Cologuard 07/10/1995 Fecal Occult Blood Test 07/10/1995 Sigmoidoscopy 07/10/1995 Mammogram 06/20/2017 06/20/2016 Influenza Vaccine (FLU shot) (Season Ended) 2023 10/23/2019, 10/23/2019, 12/26/2018, Additional history exists Colonoscopy 01/14/2031 01/14/2021, 01/14/2021 Colorectal Cancer Screening 01/14/2031 Pneumococcal Vaccine: 65+ Years Completed 05/10/2017, 07/14/2016 Zoster Vaccines Completed 03/15/2018, 08/0 09/2017, 11/17/2014 COVID-19 Vaccine Completed 11/29/2022, , 12/29/2020, Additional history exists GARDASIL-HPV IMMUNIZATION SERIES Aged Out No longer eligible based on patient's age to complete this topic Hepatitis B Aged Out No longer eligi ble based on patient's age to complete this topic MENINGOCOCCAL (MENACTRA/MENVEO) Aged Out No longer eligible based on patient's age to complete this topic documented as of this encounter Medical Devices Implanted Type Area Internet Marketing Manager Device Identifier Shelf Expiration Date Model / Serial / Lot Lens Intraoc 19.0 - [id number] - [id number] Implanted:Qty: 1 on 09/21/2020 by Ebenezer Adair MD at OR [facility] Left: Eye [employer] LOM[employer] 05/12/2025 [id number] / [id number] / [id number] Lens Intraoc 19.0 - [id number] - [id number] Implanted:Qty: 1 on 09/28/2020 by Ebenezer Adair MD at OR [facility] Right: Eye BAUSCH [employer] LOMB 04/11/2025 [id number] / [id number] / [id number] documented as of this encounter Care Teams Recycle Driver Relationship Specialty Start Date End Date Thi Aldana MD [address] [address] PCP - General Internal Medicine 09/21/20 documented as of this encounter
--- OUTSIDE RECORDS SUMMARY | 2023-06-12 04:47 | External Medical Summary ---
Author Name Unknown Address Unknown Organization [id number] [facility] [address] [place] [address] Laboratory Report Ordering Provider Test Date Status JOSE RESENDIZ 06/07/2023 13:37:45 Final Observation Date Value Abnormality Reference (Units ) Status SYNC LEUKOCYTES IN BLOOD BY AUTOMATED COUNT 06/07/2023 13:37:45 4.80 4.00-10.80 (K/uL) Final Segs 06/07/2023 13:37:45 63.1 40.0-75.0 (%) Final Lymphs % 06/07/2023 13:37:45 23.3 18.0-42.0 (%) Final Monos 06/07/2023 13:37:45 11.5 Above high normal 1.0-11.0 (%) Final Eosinophils 06/07/2023 13:37:45 1.5 0.0-6.0 (%) Final Basos 06/07/2023 13:37:45 0.6 0.0-2.0 (%) Final Absolute Segs 06/07/2023 13:37:45 3.03 1.80-7.70 (K/uL) Final Lymphs, absolute 06/07/2023 13:37:45 1.12 1.00-4.80 (K/ul) Final Monos, Abs 06/07/2023 13:37:45 0.55 0.00-1.10 (K/uL) Final Eos, Abs 06/07/2023 13:37:45 0.07 0.00-0.70 (K/uL) Final Basos, Abs 06/07/2023 13:37:45 0.03 0.00-0.20 (K/uL) Final Performing Location [facility] [address] - [address] [place] [address]
--- OUTSIDE RECORDS SUMMARY | 2023-06-12 04:47 | External Medical Summary ---
Author Name Unknown Address Unknown Organization [id number] [place] [address] - [address] [place] [address] Laboratory Report Ordering Provider Test Date Status JOSE RESENDIZ 06/07/2023 13:45:48 Final Observation Date Value Abnormality Reference (Units ) Status Color of Urine by Auto 06/07/2023 13:45:48 Yellow Colorless, Light Yellow, Yellow, Dark Yellow Final Clarity, Urine 06/07/2023 13:45:48 Clear Clear Final Glucose [Mass/volume] in Urine by Automated test strip 06/07/2023 13:45:48 Negative Negative (mg/dL) Final Bilirubin.total [Presence] in Urine by Automated test strip 06/07/2023 13:45:48 Negative Negative Final Ketones [Mass/volume] in Urine by Automated test strip 06/07/2023 13:45:48 Negative Negative (mg/dL) Final Specific gravity, Urine 06/07/2023 13:45:48 1.005 1.003-1.030 Final Hemoglobin [Presence] in Urine by Automated test strip 06/07/2023 13:45:48 Negative Negative Final pH, Urine 06/07/2023 13:45:48 5.5 5.0-7.5 (Units) Final Protein [Mass/volume] in Urine by Automated test strip 06/07/2023 13:45:48 Negative Negative (mg/dL) Final Urobilinogen [Mass/volume] in Urine by Automated test strip 06/07/2023 13:45:48 0.2 0.2, 1.0 (mg/dL) Final Nitrite [Presence] in Urine by Automated test strip 06/07/2023 13:45:48 Negative Negative Final Leukocyte esterase [Presence] in Urine by Automated test strip 06/07/2023 13:45:48 Negative Negative Final Annotation Comment 06/07/2023 13:45:48 Final Screen negative - Microscopi c not performed. Performing Location LAB[facility]ATORY [place] [address] - [address] [place] [address]
--- OUTSIDE RECORDS SUMMARY | 2023-06-12 04:47 | External Medical Summary | Summary of Care ---
Author Name Unknown Organization [facility] Address [address] [facility] [place] [address] Phone [phone] Care Team Providers Care Home Furnishings Sales Representative Name Role Phone Thi Aldana MD [facility] Care Provider Reason for Visit * Reason Comments Outpatient Testing Encounter Details Date Type Department Care Team (Late st Contact Info) Description 06/07/2023 1:10 PM EDT Laboratory Laboratory, [facility] [address] [facility] [place] [phone] [facility] [address] [facility] [place] [address] Dark urine; Asymptomatic microscopic hematuria Allergies Active Allergy Reactions Criticality Noted Date Comments Bacitracin-Polymyxin B Rash High 05/31/2015 Other reaction(s): red and itchy no shortness of breath Clavulanic Acid High 07/18/2022 Other Reaction(s): Diarrhea Levofloxacin 07/18/2022 Other Reaction(s): Other: See Comments, tendonitis Tendonitis Sulfa Antibiotics Rash High 05/31/2015 Other reaction(s): mild rash, with tingling, no S.O.B documented as of this encounter (statuses as of 06/07/2023) Medications Medication Sig Dispensed Refills Start Date End Date Status Vitamin D 50 MCG (2000 UT) Oral CapsuleIndications: takes at supper Take 5,000 [...] 50 MCG/ACT Nasal Suspension (Flonase) Administer 1 [place] into nostril in the morning. 0 Active [...] as of this encounter (statuses as of 06/07/2023) Active Problems No known active problems documented as of this encounter (statuses as of 06/07/2023) Immunizations Name Administration Dates Next Due COVID-19 mRNA, LNP-s, No Pre serve, 2-Dose Series (Pfizer) 04/20/2020,03/23/2020 documented as of this encounter Social [...] on file documented as of this encounter Plan of Treatment Upcoming Encounters Date Type Department Care Team (Late st Contact Info) Description 08/06/2023 2:00 PM EDT Office Visit Gastroenterology, [facility] [address] [place] [address] Beth Mosqueda CRNP [address] [place] [address] Pending Results Name Type Priority Associated Diagnoses Date /Time BILIRUBIN, DIRECT Lab Routine Dark urine 06/07/2023 1:37 PM EDT PT INR Lab Routine Dark urine Asymptomatic microscopic hematuria 06/07/2023 1:37 PM EDT Scheduled Procedures Name Priority Associated Diagnoses Date/Ti [...] Completed 05/10/2017, 07/14/2016 Zoster Vaccines Completed 03/15/2018, 0809/2017, 11/17/2014 COVID-19 Vaccine Completed 11/29/2022, , 12/29/2020, [...] this encounter Medical Devices Implanted Type Area Soda Worker Device Identifier Shelf Expiration Date Model / Serial / Lot Lens Intraoc 19.0 - [id number] - [id number] Implanted:Qty: 1 on 09/21/2020 by Ebenezer Adair MD at OR [facility] Left: Eye BAUSCH [employer] LOMB 05/12/2025 [id number] / [id number] / [id number] Lens Intraoc 19.0 - [id number] - [id number] Implanted:Qty: 1 on 09/28/2020 by Ebenezer Adair MD at OR [facility] Right: Eye BAUSCH [employer] LOMB 04/11/2025 [id number] / [id number] / [id number] documented as of this encounter Procedures Procedure Name Priority Date/Time Associated Diagnosis Comments URINALYSIS, REFLEX TO MICROSCOPIC Routine 06/07/2023 1:45 PM EDT Dark urine DIFFERENTIAL, AUTOMATED Routine 06/07/2023 1:37 PM EDT Dark urine CBC Routine 06/07/2023 1:37 PM EDT Dark urine CBC Routine 06/07/2023 1:37 PM EDT Dark urine documented in this encounter Results * URINALYSIS, REFLEX TO MICROSCOPIC (06/07/2023 1:45 PM EDT) Color, Urine Yellow Colorless, Light Yellow, Yellow, Dark Yellow 06/07/2023 1:57 PM EDT [facility] [place] [facility] Clarity, Urine Clear Clear 06/07/2023 1:57 PM EDT [facility] [place] [facility] Glucose, Urine Negative Negative mg/dL 06/07/2023 1:57 PM EDT [facility] [place] [address] Bilirubin, Urine Negative Negative 06/07/2023 1:57 PM EDT [facility] [place] [facility] Ketone, Urine Negative Negative mg/dL 06/07/2023 1:57 PM EDT [facility] [place] [address] Specific [place], Urine 1.005 1.003 - 1.030 06/07/2023 1:57 PM EDT [facility] [place] [facility] Blood, Urine Negative Negative 06/07/2023 1:57 PM EDT [facility] [place] [facility] pH, Urine 5.5 5.0 - 7.5 Units 06/07/2023 1:57 PM EDT [facility] [place] [address] Protein, Urine Negative Negative mg/dL 06/07/2023 1:57 PM EDT [facility] [place] [address] Urobilinogen, Urine 0.2 0.2, 1.0 mg/dL 06/07/2023 1:57 PM EDT [facility] [place] [address] Nitrite, Urine Negative Negative 06/07/2023 1:57 PM EDT [facility] [place] [address] Esterase, Urine Negative Negative 1:57 PM EDT [facility] [place] [facility] Comment, Urine 06/07/2023 1:57 PM EDT [facility] [place] [facility]10 Comment:Screen negative - Mi croscopic not performed. Urine Urine specimen obtained by clean catch procedure / Unknown Non-blood Collection / Unknown 06/07/2023 1:45 PM EDT 06/07/2023 1:45 PM EDT Beth PANG LAB URINE ORDERABL ES [facility] [place] [address] [place] [address] * (ABNORMAL) DIFFERENTIAL, AUTOMATED (06/07/2023 1:37 PM EDT) WBC 4.80 4.00 - 10.80 K/uL 06/07/2023 1:56 PM EDT [facility] [place] [facility] Neutrophils % 63.1 40.0 - 75.0 % 06/07/2023 1:56 PM EDT [facility] [place] [address] Lymphocytes % 23.3 18.0 - 42.0 % 06/07/2023 1:56 PM EDT [facility] [place] [address] Monocytes % 11.5(H) 1.0 - 11.0 % 06/07/2023 1:56 PM EDT [facility] [place] [address] Eosinophils % 1.5 0.0 - 6.0 % 06/07/2023 1:56 PM EDT [facility] [place] [address] Basophils % 0.6 0.0 - 2.0 % 06/07/2023 1:56 PM EDT [facility] [place] [facility] Absolute Neutrophils 3.03 1.80 - 7.70 K/uL 06/07/2023 1:56 PM EDT [facility] [place] [facility] Absolute Lymphocytes 1.12 1.00 - 4.80 K/ul 06/07/2023 1:56 PM EDT [facility] [place] [facility] Absolute Monocytes 0.55 0.00 - 1.10 K/uL 06/07/2023 1:56 PM EDT [facility] [place] [address] Absolute Eosinophils 0.07 0.00 - 0.70 K/uL 06/07/2023 1:56 PM EDT [facility] [place] [address] Absolute Basophils 0.03 0.00 - 0.20 K/uL 06/07/2023 1:56 PM EDT [facility] [place] [facility]10 Blood Venous blood specimen / Unknown Venipuncture / Unknown 06/07/2023 1:37 PM EDT 06/07/2023 1:37 PM EDT Beth PANG LAB BLOOD ORDERABL ES [facility] [place] [address] [place] [address] * CBC (06/07/2023 1:37 PM EDT) WBC 4.80 4.00 - 10.80 K/uL 06/07/2023 1:56 PM EDT [facility] [place] [facility] RBC 4.65 3.85 - 5.15 M/uL 06/07/2023 1:56 PM EDT [facility] [place] [facility] HGB 13.5 12.0 - 15.3 g/dL 06/07/2023 1:56 PM EDT [facility] [place] [facility] HCT 40.6 36.0 - 45.2 % 06/07/2023 1:56 PM EDT [facility] [place] [address] MCV 87.3 81.5 - 97.5 fL 06/07/2023 1:56 PM EDT [facility] [place] [address] MCH 29.0 27.0 - 34.0 pg 06/07/2023 1:56 PM EDT [facility] [place] [address] MCHC 33.3 32.0 - 36.0 g/dL 06/07/2023 1:56 PM EDT [facility] [place] [address] RDW 12.1 11.5 - 15.5 % 06/07/2023 1:56 PM EDT [facility] [place] [address] PLT 299 140 - 400 K/uL 06/07/2023 1:56 PM EDT [facility] [place] [address] MPV 9.2 6.6 - 11.1 fL 06/07/2023 1:56 PM EDT [facility] [place] [address] Blood Venous blood specimen / Unknown Venipuncture / Unknown 06/07/2023 1:37 PM EDT 06/07/2023 1:37 PM EDT Beth PANG LAB BLOOD ORDERABL ES [facility] [place] [address] [place] [address] documented in this encounter Visit Diagnoses Diagnosis Dark urine Other nonspecific finding on examination of urine Asymptomatic microscopic hematuria documented in this encounter Care Teams Home Furnishings Sales Representative Relationship Specialty Start Date End Date Thi Aldana MD [address] [address] PCP - General Internal Medicine 09/21/20 documented as of this encounter
--- OUTSIDE RECORDS SUMMARY | 2023-06-12 04:47 | External Medical Summary ---
Author Name Unknown Address Unknown Organization [facility] - [address] [place] [address] Laboratory Report Ordering Provider Test Date Status JOSE RESENDIZ 06/07/2023 13:37:45 Final Observation Date Value Abnormality Reference (Units ) Status WBC, Total 06/07/2023 13:37:45 4.80 4.00-10.8 0 (K/uL) Final RBC 06/07/2023 13:37:45 4.65 3.85-5.15 (M/uL) Final Hemoglobin 06/07/2023 13:37:45 13.5 12.0-15.3 (g/dL) Final HCT 06/07/2023 13:37:45 40.6 36.0-45.2 (%) Final MCV 06/07/2023 13:37:45 87.3 81.5-97.5 (fL) Final MCH 06/07/2023 13:37:45 29.0 27.0-34.0 (pg) Final MCHC 06/07/2023 13:37:45 33.3 32.0-36.0 (g/dL) Final RDW 06/07/2023 13:37:45 12.1 11.5-15.5 (%) Final Platelets 06/07/2023 13:37:45 299 140-400 (K /uL) Final MPV 06/07/2023 13:37:45 9.2 6.6-11.1 ( fL) Final Performing Location [facility] 57[address] 0 - [address] [place] [address]
--- OUTSIDE RECORDS SUMMARY | 2023-06-12 04:47 | External Medical Summary ---
Author Name Unknown Address Unknown Organization K0[facility] [place] [address] - [address] [place] [address] Laboratory Report Ordering Provider Test Date Status JOSE RESENDIZ 06/07/2023 13:37:45 Final Observation Date Value Abnormality Reference (Units ) Status Bilirubin, Direct 06/07/2023 13:37:45 <0.2 0. 0-0.3 (mg/dL) Final Performing Location [facility] [place] [address] - [address] [place] [address]
--- OUTSIDE RECORDS SUMMARY | 2023-06-12 04:47 | External Medical Summary | Summary of Care ---
Author Name Unknown Organization [facility] Address [address] [facility] [place] [address] Phone [phone] Care Team Providers Care Associate Genetics Professor Name Role Phone Thi Aldana MD [facility] Care Provider Encounter Details Date Type Department Care Team (Late st Contact Info) Description 06/05/2023 Orders Only PATIENT PORTAL DO NOT DELETE THIS DEPT USED BY [place] [id number] Allergies Active Allergy Reactions Criticality Noted Date Comments Bacitracin-Polymyxin B Rash High 05/31/2015 Other reaction(s): red and itchy no shortness of breath Clavulanic Acid High 07/18/2022 Other Reaction(s): Diarrhea Levofloxacin 07/18/2022 Other Reaction(s): Other: See Comments, tendonitis Tendonitis Sulfa Antibiotics Rash High 05/31/2015 Other reaction(s): mild rash, with tingling, no S.O.B documented as of this encounter (statuses as of 06/05/2023) Medications Medication Sig Dispensed Refills Start Date [...] 50 MCG/ACT Nasal Suspension (Flonase) Administer 1 [place] into nostril in the morning. 0 Active [...] as of this encounter (statuses as of 06/05/2023) Active Problems No known active problems documented as of this encounter (statuses as of 06/05/2023) Immunizations Name Administration Dates Next Due COVID-19 [...] 08/06/2023 2:00 PM EDT Office Visit Gastroenterology, [facility] [address] [place] [address] Beth Mosqueda CRNP [address] [place] [address] Scheduled Procedures Name Priority Associated Diagnoses Date/Ti [...] Completed 05/10/2017, 07/14/2016 Zoster Vaccines Completed 03/15/2018, 080 09/2017, 11/17/2014 COVID-19 Vaccine Completed 11/29/2022, , [...] this encounter Medical Devices Implanted Type Area Warehouse Record Clerk Device Identifier Shelf Expiration Date Model / Serial / Lot Lens Intraoc 19.0 - [id number] - [id number] Implanted:Qty: 1 on 09/21/2020 by Ebenezer Adair MD at OR [facility] Left: Eye [employer]OMB 05/12/2025 [id number] / [id number] / [id number] Lens Intraoc 19.0 - [id number] - [id number] Implanted:Qty: 1 on 09/28/2020 by Ebenezer Adair MD at OR [facility] Right: Eye BAUSCH & LOMB 04/11/2025 [id number] / [id number] / [id number] documented as of this encounter Care Teams Associate Genetics Professor Relationship Specialty Start Date End Date Thi Aldana MD [address] [place] [address] PCP - General Internal Medicine 09/21/20 documented as of this encounter
--- OUTSIDE RECORDS SUMMARY | 2023-06-12 04:47 | External Medical Summary ---
Author Name Unknown Address Unknown Organization [facility] [place] [address] - [address] [place] [address] Laboratory Report Ordering Provider Test Date Status JOSE RESENDIZ 06/07/2023 13:37:45 Final Warfarin Therapy
INR: 2 .0-3.0 conventional anticoagulation
INR: 2.5- 3.5 high intensity anticoagulation Observation Date Value Abnormality Reference (Units ) Status PT 06/07/2023 13:37:45 16.3 Above high normal 11 .6-15.2 (seconds) Final INR 06/07/2023 13:37:45 1.3 Above high normal 0. 8-1.2 Final Performing [facility] - [address] [place] [address]
[2023-06-12] MEDS ORDERED: Patient's HEIGHT &/or WEIGHT Needed STA (07:59)
[2023-06-12] MEDS: METOPROLOL TARTRATE 100 MG TAB PO SCH (08:31)
[2023-06-12] MEDS: DOFETILIDE 125 MCG CAPSULE PO SCH (08:32)
[2023-06-12] MEDS: MAGNESIUM OXIDE 400 MG TAB PO SCH (08:32)
[2023-06-12] MEDS: POTASSIUM CHLORIDE 10 MEQ TABCR PO SCH (08:32)
--- NOTE | 2023-06-12 08:45 | Electrocardiogram Report ---
Test Reason : Blood Pressure : / mmHG Vent. Rate : 094 BPM Atrial Rate : 117 BPM P-R Int : 000 ms QRS Dur : 122 ms QT Int : 360 ms P-R-T Axes : 000 096 018 degrees QTc Int : 451 ms Atrial fibrillation Right bundle branch block Abnormal ECG When compared with ECG of 10-MAY-2023 13:15, (unconfirmed) No significant change was found Confirmed by Brenton Sosa ([id number]) on 06/12/2023 8:44:47 AM Referred By: Brenton Sosa Confirmed By:Brenton Sosa
--- NOTE | 2023-06-12 11:28 | Cardiology Progress Note ---
Date of Service June 12, 2023 Assessment & Plan (1) Atrial fibrillation: (2) Anticoagulant long-term use: Plan 1. Orthostatic hypotension: Currently she is feeling quite well in this regard on her current regimen. 2. Pulmonary edema: She presented in pulmonary edema following cardioversion. This is something which occurs from time to time following cardioversion, it is quite rare and to my knowledge and mechanism is not clear. I do not think she needs to take a diuretic on a regular basis but could keep it as needed. Perhaps she will be at more risk for heart failure in the future and she is concerned about this, she would prefer to spend the night after cardioversion in the hospital and so I may arrange that while she is still undergoing monitoring for Tikosyn therapy this admission. 3. Acute kidney injury: Starting after her pulmonary edema admission her BUN/creatinine increased, the BUN became quite elevated consistent with dehydration. That is improved with discontinuation of diuretics. 4. Atrial fibrillation: In the past we have felt that she was asymptomatic with her atrial fibrillation, but now she notices symptoms such as easy fatigability and dyspnea on exertion when she is in atrial fibrillation, and may also be aware of the irregularity. She feels better in sinus rhythm and can correlate her symptoms with her rhythm is identified on her Fitbit, I am therefore going to continue to try to maintain sinus rhythm with Tikosyn which is often quite effective. If she does not convert by June 14, 2023 I will electrically convert. 5. Anticoagulation: She is on Eliquis, she is on the correct dose based on her age and weight and I recommended that she continue it. 6. Right bundle branch block: She presented in atrial fibrillation with a right bundle branch block pattern which was new, that has been documented during atrial fibrillation at higher heart rates (including admission here) however with sinus rhythm and at slower heart rates during atrial fibrillation that resolved. With better rate control of her atrial fibrillation she did not have a right bundle branch block pattern, however it is present on Multaq at 73 bpm. It may be somewhat rate dependent but perhaps progressive. This does not alter our approach. 7. Bicuspid aortic valve: She has a bicuspid aortic valve but does not have a gradient sufficient to require further evaluation or treatment at this time. We will need to watch this over time with echocardiography. 8. History of TIA: I am not sure the cause of her prior TIAs was specifically determined, no stroke was found on evaluation however I am not sure that would eliminate the possibility of tiny embolic events as a cause. She was felt to have small vessel disease and was on aspirin initially however that has been discontinued with initiation of anticoagulation. So far she has had no r ecurrence of the symptoms and since aspirin with anticoagulation increases the risk of bleeding substantially I am going to continue the current plan of Eliquis and atorvastatin without aspirin. 9. Hypertension: She has a history of hypertension, on home blood pressure monitoring her blood pressure is quite labile, sometimes low and sometimes high but mostly reasonably well controlled. Her blood pressure was very high on presentation here and at least until we get her rhythm under control I am going to increase her metoprolol and also add amlodipine. Admission and Anticipated Discharge Date Admission Date: June 11, 2023 Subjective She is feeling well today, she had a stressful day yesterday and feels better. She is not having much in the way of palpitations but is aware of the sensation. Her magnesium was low and we repleted that so she did not get her Tikosyn until this. Although she just took it she is feeling well on it. Physical Exam Physical Exam: Constitutional: Alert, cooperative and in no distress. HEENT: Unremarkable Neck: No jugular venous distention, carotid pulses are normal and equal bilaterally without bruits. Pulmonary: Clear to auscultation bilaterally. Cardiac: Irregular rhythm with a grade 2/6 holosystolic murmur at the apex, no gallop or rub. Abdomen: Soft, nontender with normal bowel sounds. Extremities: No edema. Distal pulses intact. Neurologic: No focal findings. Gait is steady. Skin: No rash, ecchymoses or petechiae. Results & Data Vital Signs (Past 12 Hours) Vital Signs Pulse Resp BP Pulse Ox 06/12/23 07:46 76 22 142/95 H 97 06/12/23 07:00 80 20 06/12/23 06:30 78 22 06/12/23 06:00 167/101 H 06/12/23 06:00 80 15 06/12/23 05:30 79 21 06/12/23 05:00 80 13 06/12/23 04:30 78 16 90 06/12/23 04:00 146/79 H 06/12/23 04:00 74 17 06/12/23 03:30 87 21 06/12/23 03:00 78 16 06/12/23 02:30 83 17 06/12/23 02:00 146/101 H 06/12/23 02:00 76 17 06/12/23 01:40 154/100 H 06/12/23 01:40 87 25 H 06/12/23 01:30 79 17 06/12/23 01:00 64 16 06/12/23 00:30 73 16 06/12/23 00:00 79 19 06/12/23 00:00 155/94 H 06/12/23 00:00 69 06/11/23 23:30 80 17 89 L Laboratory Results Comprehensive Metabolic Panel 06/11/23 Range/Units 17:01 Sodium 135 L (136-145) mmol/L Potassium 3.8 (3.5-5.1) mmol/L Chloride 101 (98-107) mmol/L Carbon Dioxide 24 (21-32) mmol/L BUN 14 (6-23) mg/dl Creatinine 0.86 (0.6-1.2) mg/dl Glucose 85 (70-99(Fasting)) mg/dl Calcium 9.3 (8.6-10.3) mg/dl Intake and Output 06/11/23 06/12/23 06/12/23 22:59 06:59 14:59 Intake Total 196.667 / 196.667 Balance 196.667 / 196.667 Intake: IV 196.667 / 196.667 Magnesium Sulfate / D5w 1 gm In 196.667 / 196.667 100 ml @ 50 mls/hr IV Q2H [facility] Rx#:[id number] Other: Weight 76 kg 76.6 kg Weight Measurement Method Built in [facility] Built in [facility] Patient Weight 06/13/23 06:59 Weight 76.6 kg Diagnostic Findings Telemetry: Atrial fibrillation throughout, rate adequately controlled. Electrocardiogram: Yesterday's electrocardiogram showed a slightly longer QT interval that historically however in atrial fibrillation it is hard to evaluate and she had a right bundle branch block (rate related), therefore the QT interval is acceptable for treatment. PG Care Time/CCT Total # of Minutes Spent Total Time Spent with Patient: Total time spent is greater than 50% in coordination of care (as documented) at patient's floor/unit and/or counseling patient: Coding Level of Care Code 20755 SUB INP/OBS CARE MIN Diagnoses Paroxysmal atrial fibrillation I48.0 Atrial fibrillation type: paroxysmal Anticoagulant long-term use Z79.01 (1) Atrial fibrillation Atrial fibrillation type: paroxysmal Qualified Code(s): I48.0 - Paroxysmal atrial fibrillation
--- NOTE | 2023-06-12 15:53 | Electrocardiogram Report ---
Test Reason : Blood Pressure : / mmHG Vent. Rate : 068 BPM Atrial Rate : 416 BPM P-R Int : 000 ms QRS Dur : 074 ms QT Int : 400 ms P-R-T Axes : 000 085 088 degrees QTc Int : 426 ms Atrial fibrillation Incomplete right bundle branch block Septal infarct , age undetermined Abnormal ECG When compared with ECG of 11-JUN-2023 16:51, Right bundle branch block is no longer Present Confirmed by Brenton Sosa ([id number]) on 06/12/2023 3:52:51 PM Referred By: Brenton Sosa Confirmed By:Brenton Sosa
--- NOTE | 2023-06-12 16:16 | Electrocardiogram Report ---
Test Reason : Blood Pressure : / mmHG Vent. Rate : 090 BPM Atrial Rate : 086 BPM P-R Int : 000 ms QRS Dur : 126 ms QT Int : 436 ms P-R-T Axes : 000 099 056 degrees QTc Int : 533 ms Atrial fibrillation Right bundle branch block Abnormal ECG When compared with ECG of 12-JUN-2023 06:24, (unconfirmed) Right bundle branch block is now Present Criteria for Septal infarct are no longer Present Confirmed by Brenton Sosa ([id number] on 06/12/2023 4:16:13 PM Referred By: Brenton Sosa Confirmed By:Brenton Sosa
[2023-06-13] MEDS: ALPRAZolam 0.5 MG TABLET PO PRN (01:36)
[2023-06-13 05:09] LABS: BUN Creatinine Ratio 15.2 (10-20); Calcium 8.9 mg/dl (8.6-10.3); Creatinine Clr Calc Pharmacy 65.9 ml/min; Est GFR (African American) 86.7 ml/min; Est GFR (Non-African American) 74.8 ml/min; Magnesium 1.8 mg/dl (1.7-2.4)
[2023-06-13] MEDS ORDERED: LOPERAMIDE HCL 2 MG CAP PO PRN (11:35)
--- NOTE | 2023-06-13 11:41 | Cardiology Progress Note ---
Date of Service June 13, 2023 Assessment & Plan (1) Atrial fibrillation: (2) Anticoagulant long-term use: Plan 1. Orthostatic hypotension: Currently she is feeling quite well in this regard on her current regimen. 2. Pulmonary edema: She presented in pulmonary edema following cardioversion. This is something which occurs from time to time following cardioversion, it is quite rare and to my knowledge and mechanism is not clear. I do not think she needs to take a diuretic on a regular basis but could keep it as needed. Perhaps she will be at more risk for heart failure in the future and she is concerned about this, fortunately she converted to sinus rhythm on her so we do not need cardioversion this admission. 3. Acute kidney injury: Starting after her pulmonary edema admission her BUN/creatinine increased, the BUN became quite elevated consistent with dehydration. That is improved with discontinuation of diuretics. 4. Atrial fibrillation: In the past we have felt that she was asymptomatic with her atrial fibrillation, but now she notices symptoms such as easy fatigability and dyspnea on exertion when she is in atrial fibrillation, and may also be aware of the irregularity. She feels better in sinus rhythm and can correlate her symptoms with her rhythm is identified on her Fitbit, I am therefore going to continue to try to maintain sinus rhythm with Tikosyn which is often quite effective. She has converted to sinus rhythm which is a good sign. 5. Anticoagulation: She is on Eliquis, she is on the correct dose based on her age and weight and I recommended that she continue it. 6. Right bundle branch block: She presented in atrial fibrillation with a right bundle branch block pattern which was new, that has been documented during atrial fibrillation at higher heart rates (including admission here) however with sinus rhythm and at slower heart rates during atrial fibrillation that resolved. With better rate control of her atrial fibrillation she did not have a right bundle branch block pattern, however it is present on Multaq at 73 bpm. It may be somewhat rate dependent but perhaps progressive. This does not alter our approach. 7. Bicuspid aortic valve: She has a bicuspid aortic valve but does not have a gradient sufficient to require further evaluation or treatment at this time. We will need to watch this over time with echocardiography. 8. History of TIA: I am not sure the cause of her prior TIAs was specifically determined, no stroke was found on evaluation however I am not sure that would eliminate the possibility of tiny embolic events as a cause. She was felt to have small vessel disease and was on aspirin initially however that has been discontinued with initiation of anticoagulation. So far she has had no recurrence of the symptoms and since aspirin with anticoagulation increases the risk of bleeding substantially I am going to continue the current plan of Eliquis and atorvastatin without aspirin. 9. Hypertension: She has a history of hypertension, on home blood pressure monitoring her blood pressure is quite labile, sometimes low and sometimes high but mostly reasonably well controlled. Her blood pressure was very high on presentation here and has remained so. Her heart rate is acceptable in sinus rhythm so we will continue the higher dose of metoprolol and add amlodipine to her daily regimen. Admission and Anticipated Discharge Date Admission Date: June 11, 2023 Subjective She continues to feel well on Tikosyn, she has no side effects. She did convert to normal rhythm during the night and feels better. Physical Exam Physical Exam: Constitutional: Alert, cooperative and in no distress. HEENT: Unremarkable Neck: No jugular venous distention, carotid pulses are normal and equal bilaterally without bruits. Pulmonary: Clear to auscultation bilaterally. Cardiac: Regular rhythm with a grade 2/6 holosystolic murmur at the apex, no gallop or rub. Abdomen: Soft, nontender with normal bowel sounds. Extremities: No edema. Distal pulses intact. Neurologic: No focal findings. Gait is steady. Skin: No rash, ecchymoses or petechiae. Results & Data Vital Signs (Past 12 Hours) Vital Signs Temp Pulse Pulse Resp BP BP Pulse Ox 06/13/23 08:00 06/13/23 07:56 36.6 C 68 18 168/89 H 95 06/13/23 06:41 72 18 06/13/23 06:30 62 18 06/13/23 06:20 64 17 06/13/23 06:10 62 18 06/13/23 06:00 64 18 06/13/23 05:51 66 22 06/13/23 05:45 61 12 06/13/23 05:30 62 18 06/13/23 05:23 65 20 94 06/13/23 05:23 135/75 06/13/23 05:20 55 L 16 06/13/23 05:10 58 L 16 06/13/23 05:00 62 17 06/13/23 04:50 64 16 06/13/23 04:40 65 17 06/13/23 04:30 63 18 06/13/23 04:20 62 15 06/13/23 04:10 68 19 06/13/23 04:00 68 20 06/13/23 04:00 36.7 C 06/13/23 03:50 66 22 06/13/23 03:40 65 16 06/13/23 03:30 65 18 06/13/23 03:20 65 20 06/13/23 03:10 64 16 06/13/23 03:00 63 16 06/13/23 02:50 62 18 06/13/23 02:40 62 17 06/13/23 02:31 66 18 06/13/23 02:23 71 21 06/13/23 02:10 66 16 06/13/23 02:00 65 16 06/13/23 01:50 69 18 06/13/23 01:40 68 18 06/13/23 01:39 194/105 H 06/13/23 01:39 70 22 06/13/23 01:30 63 17 06/13/23 01:20 63 21 06/13/23 01:11 62 22 06/13/23 01:01 61 13 06/13/23 00:51 67 16 06/13/23 00:41 65 15 06/13/23 00:30 68 17 06/13/23 00:22 68 4 L 06/13/23 00:10 59 L 21 06/13/23 00:00 62 22 06/13/23 00:00 63 06/12/23 23:50 61 18 06/12/23 23:40 63 18 O2 Del Method 06/13/23 08:00 Room Air 06/13/23 07:56 Room Air 06/13/23 06:41 06/13/23 06:30 06/13/23 06:20 06/13/23 06:10 06/13/23 06:00 06/13/23 05:51 06/13/23 05:45 06/13/23 05:30 06/13/23 05:23 06/13/23 05:23 06/13/23 05:20 06/13/23 05:10 06/13/23 05:00 06/13/23 04:50 06/13/23 04:40 06/13/23 04:30 06/13/23 04:20 06/13/23 04:10 06/13/23 04:00 06/13/23 04:00 06/13/23 03:50 06/13/23 03:40 06/13/23 03:30 06/13/23 03:20 06/13/23 03:10 06/13/23 03:00 06/13/23 02:50 06/13/23 02:40 06/13/23 02:31 06/13/23 02:23 06/13/23 02:10 06/13/23 02:00 06/13/23 01:50 06/13/23 01:40 06/13/23 01:39 06/13/23 01:39 06/13/23 01:30 06/13/23 01:20 06/13/23 01:11 06/13/23 01:01 06/13/23 00:51 06/13/23 00:41 06/13/23 00:30 06/13/23 00:22 06/13/23 00:10 06/13/23 00:00 06/13/23 00:00 06/12/23 23:50 06/12/23 23:40 Laboratory Results Comprehensive Metabolic Panel 06/13/23 Range/Units 04:14 Sodium 133 L (136-145) mmol/L Potassium 4.0 (3.5-5.1) mmol/L Chloride 102 (98-107) mmol/L Carbon Dioxide 22 (21-32) mmol/L BUN 12 (6-23) mg/dl Creatinine 0.79 (0.6-1.2) mg/dl Glucose 146 H (70-99(Fasting)) mg/dl Calcium 8.9 (8.6-10.3) mg/dl magnesium level 1.8 this morning Diagnostic Findings Telemetry: Atrial fibrillation with conversion to sinus rhythm last evening. Her electrocardiogram following conversion shows sinus rhythm at 65 bpm with a slightly prolonged but acceptable QT interval. An electrocardiogram this morning shows sinus rhythm at 56 bpm with a premature ventricular beat, the QT interval is slightly prolonged. PG Care Time/CCT Total # of Minutes Spent Total Time Spent with Patient: Total time spent is greater than 50% in coordination of care (as documented) at patient's floor/unit and/or counseling patient: Coding Level of Care Code 93735 SUB INP/OBS CARE MIN Diagnoses Paroxysmal atrial fibrillation I48.0 Atrial fibrillation type: paroxysmal Anticoagulant long-term use Z79.01 (1) Atrial fibrillation Atrial fibrillation type: paroxysmal Qualified Code(s): I48.0 - Paroxysmal atrial fibrillation
[2023-06-13] MEDS ORDERED: ARTIFICIAL TEARS OP PRN (11:50)
[2023-06-13] MEDS: amLODIPine BESYLATE 5 MG TAB PO SCH (12:23)
[2023-06-13] MEDS: CHOLECALCIFEROL 25 MCG (1000 UNITS) TAB PO SCH (18:24)
[2023-06-13] MEDS: VITAMIN B COMPLEX TAB PO SCH (18:24)
[2023-06-13] MEDS: PANTOprazole 40 MG TAB PO SCH (20:18)
[2023-06-13] MEDS: ATORVASTATIN 10 MG TAB PO SCH (20:20)
[2023-06-13] MEDS: ESZOPICLONE 1 MG TAB PO PRN (22:38)
[2023-06-14 04:57] LABS: BUN Creatinine Ratio 18.1 (10-20); Calcium 9.3 mg/dl (8.6-10.3); Creatinine Clr Calc Pharmacy 62.7 ml/min; Est GFR (African American) 81.7 ml/min; Est GFR (Non-African American) 70.4 ml/min; Magnesium 1.8 mg/dl (1.7-2.4); Potassium 4.4 mmol/L (3.5-5.1)
[2023-06-14] MEDS: FLUTICASONE/VILANTEROL 200/25MCG 14 PUFFS/INHALER INH SCH (09:08)
--- NOTE | 2023-06-14 10:19 | Cardiology Progress Note ---
Date of Service June 14, 2023 Assessment & Plan (1) Atrial fibrillation: (2) Anticoagulant long-term use: (3) Hypertension: Plan 1. Orthostatic hypotension: Currently she is feeling quite well in this regard on her current regimen. Her blood pressure is very high but I am concerned about controlling it too closely as we may exacerbate orthostatic symptoms. 2. Pulmonary edema: She presented in pulmonary edema following cardioversion. This is something which occurs from time to time following cardioversion, it is quite rare and to my knowledge and mechanism is not clear. I do not think she needs to take a diuretic on a regular basis but could keep it as needed. Perh aps she will be at more risk for heart failure in the future and she is concerned about this, fortunately she converted to sinus rhythm on her own so we do not need cardioversion this admission. 3. Acute kidney injury: Starting after her pulmonary edema admission her BUN/creatinine increased, the BUN became quite elevated consistent with dehydration. That normalized with discontinuation of diuretics. 4. Atrial fibrillation: In the past we have felt that she was asymptomatic with her atrial fibrillation, but now she notices symptoms such as easy fatigability and dyspnea on exertion when she is in atrial fibrillation, and may also be aware of the irregularity. She feels better in sinus rhythm and can correlate her symptoms with her rhythm is identified on her Fitbit, I am therefore going to continue to try to maintain sinus rhythm with Tikosyn which is often quite effective. She has converted to sinus rhythm and has remained there which is a good sign. 5. Anticoagulation: She is on Eliquis, she is on the correct dose based on her age and weight and I recommended that she continue it. 6. Right bundle branch block: She presented in atrial fibrillation with a right bundle branch block pattern which was new, that has been documented during atrial fibrillation at higher heart rates (including admission here) however with sinus rhythm and at slower heart rates during atrial fibrillation that resolved. With better rate control of her atrial fibrillation she did not have a right bundle branch block pattern, however it was present on Multaq at 73 bpm. It may be somewhat rate dependent but perhaps progressive. This does not alter our approach. 7. Bicuspid aortic valve: She has a bicuspid aortic valve but does not have a gradient sufficient to require further evaluation or treatment at this time. We will need to watch this over time with echocardiography. 8. History of TIA: I am not sure the cause of her prior TIAs was specifically determined, no stroke was found on evaluation however I am not sure that would eliminate the possibility of tiny embolic events as a cause. She was felt to have small vessel disease and was on aspirin initially however that has been discontinued with initiation of anticoagulation. So far she has had no recurrence of the symptoms and since aspirin with anticoagulation increases the risk of bleeding substantially I am going to continue the current plan of Eliquis and atorvastatin without aspirin. 9. Hypertension: She has a history of hypertension, on home blood pressure monitoring her blood pressure is quite labile, sometimes low and sometimes high but mostly reasonably well controlled. Her blood pressure was very high on presentation here and has remained so except for few isolated normal readings, no low measurements. I think we need to get her blood pressure under better control. I am going to try nebivolol which often slows heart rate less and has fewer side effects than metoprolol (although she is tolerating it well). It may be a better blood pressure medication as well. 10. Sick sinus syndrome: She seems to have a component of sick sinus syndrome, her heart rate varies quite a bit and is now trending well and although that may be a medication effect it may indicate an underlying sinus node dysfunction. Nebivolol has less heart rate slowing effect than metoprolol. She also has the atrial fibrillation with rapid heart rates. Admission and Anticipated Discharge Date Admission Date: June 11, 2023 Subjective She is feeling well today, she continues to do well on Tikosyn and remains in sinus rhythm without side effects. She is concerned about her blood pressure but does not have symptoms. Physical Exam Physical Exam: Constitutional: Alert, cooperative and in no distress. HEENT: Unremarkable Neck: No jugular venous distention, carotid pulses are normal and equal bilaterally without bruits. Pulmonary: Clear to auscultation bilaterally. Cardiac: Regular slow rhythm with a grade 2/6 holosystolic murmur at the apex, no gallop or rub. Abdomen: Soft, nontender with normal bowel sounds. Extremities: No edema. Distal pulses intact. Neurologic: No focal findings. Gait is steady. Skin: No rash, ecchymoses or petechiae. Results & Data Vital Signs (Past 12 Hours) Vital Signs Temp Pulse Pulse Resp BP BP Pulse Ox 06/14/23 09:05 36.5 C 54 L 18 159/88 H 97 05/02/24 04:49 36.9 C 62 20 152/77 H 99 06/14/23 00:00 62 06/14/23 00:00 36.8 C 61 16 135/71 98 06/13/23 22:26 183/100 H O2 Del Method 06/14/23 09:05 Room Air 06/14/23 04:49 Room Air 06/14/23 00:00 06/14/23 00:00 Room Air 06/13/23 22:26 Laboratory Results Comprehensive Metabolic Panel 06/14/23 Range/Units 04:14 Sodium 134 L (136-145) mmol/L Potassium 4.4 (3.5-5.1) mmol/L Chloride 102 (98-107) mmol/L Carbon Dioxide 26 (21-32) mmol/L BUN 15 (6-23) mg/dl Creatinine 0.83 (0.6-1.2) mg/dl Glucose 92 (70-99(Fasting)) mg/dl Calcium 9.3 (8.6-10.3) mg/dl Intake and Output 06/13/23 06/14/23 06/14/23 22:59 06:59 14:59 Other: # Unmeasured Voids 1 Magnesium level 1.8 today. Diagnostic Findings Telemetry: Sinus rhythm and sinus bradycardia, no significant arrhythmia. PG Care Time/CCT Total # of Minutes Spent Total Time Spent with Patient: Total time spent is greater than 50% in coordination of care (as documented) at patient's floor/unit and/or counseling patient: Coding Level of Care Code 54210 SUB INP/OBS CARE 3/50MIN Diagnoses Paroxysmal atrial fibrillation I48.0 Atrial fibrillation type: paroxysmal Anticoagulant long-term use Z79.01 Primary hypertension I10 Hypertension type: primary hypertension (1) Atrial fibrillation Atrial fibrillation type: paroxysmal Qualified Code(s): I48.0 - Paroxysmal atrial fibrillation (3) Hypertension Hypertension type: primary hypertension Qualified Code(s): I10 - Essential (primary) hypertension
[2023-06-14] MEDS: METOPROLOL TARTRATE 100 MG TAB PO SCH (20:03)
[2023-06-14 21:46] VITALS: O2SAT 97
[2023-06-15 04:55] LABS: BUN Creatinine Ratio 13.4 (10-20); Calcium 9.3 mg/dl (8.6-10.3); Creatinine Clr Calc Pharmacy 63.5 ml/min; Est GFR (African American) 82.9 ml/min; Est GFR (Non-African American) 71.5 ml/min; Magnesium 1.8 mg/dl (1.7-2.4); Potassium 4.4 mmol/L (3.5-5.1)
[2023-06-15 08:45] VITALS: TEMP 97.8
[2023-06-15 09:45] VITALS: RESP 16
[2023-06-15 10:20] VITALS: BP 182/92; PULSE 51
--- NOTE | 2023-06-15 10:22 | Cardiology Progress Note ---
Date of Service June 15, 2023 Assessment & Plan (1) Atrial fibrillation: (2) Anticoagulant long-term use: (3) Hypertension: Plan 1. Orthostatic hypotension: Currently she is feeling quite well in this regard on her current regimen. Her blood pressure is very high but I am concerned about controlling it too closely as we may exacerbate orthostatic symptoms. 2. Pulmonary edema: She presented in pulmonary edema following cardioversion. This is something which occurs from time to time following cardioversion, it is quite rare and to my knowledge and mechanism is not clear. I do not think she needs to take a diuretic on a regular basis but could keep it as needed. Perh aps she will be at more risk for heart failure in the future and she is concerned about this, fortunately she converted to sinus rhythm on her own so we do not need cardioversion this admission. 3. Acute kidney injury: Starting after her pulmonary edema admission her BUN/creatinine increased, the BUN became quite elevated consistent with dehydration. That normalized with discontinuation of diuretics. 4. Atrial fibrillation: In the past we have felt that she was asymptomatic with her atrial fibrillation, but now she notices symptoms such as easy fatigability and dyspnea on exertion when she is in atrial fibrillation, and may also be aware of the irregularity. She feels better in sinus rhythm and can correlate her symptoms with her rhythm is identified on her Fitbit, I am therefore going to continue to try to maintain sinus rhythm with Tikosyn which is often quite effective. She has converted to sinus rhythm and has remained there which is a good sign. 5. Anticoagulation: She is on Eliquis, she is on the correct dose based on her age and weight and I recommended that she continue it. 6. Right bundle branch block: She presented in atrial fibrillation with a right bundle branch block pattern which was new, that has been documented during atrial fibrillation at higher heart rates (including admission here) however with sinus rhythm and at slower heart rates during atrial fibrillation that resolved. With better rate control of her atrial fibrillation she did not have a right bundle branch block pattern, however it was present on Multaq at 73 bpm. It may be somewhat rate dependent but perhaps progressive. This does not alter our approach. 7. Bicuspid aortic valve: She has a bicuspid aortic valve but does not have a gradient sufficient to require further evaluation or treatment at this time. We will need to watch this over time with echocardiography. 8. History of TIA: I am not sure the cause of her prior TIAs was specifically determined, no stroke was found on evaluation however I am not sure that would eliminate the possibility of tiny embolic events as a cause. She was felt to have small vessel disease and was on aspirin initially however that has been discontinued with initiation of anticoagulation. So far she has had no recurrence of the symptoms and since aspirin with anticoagulation increases the risk of bleeding substantially I am going to continue the current plan of Eliquis and atorvastatin without aspirin. 9. Hypertension: She has a history of hypertension, on home blood pressure monitoring her blood pressure is quite labile, sometimes low and sometimes high but mostly reasonably well controlled. Her blood pressure was very high on presentation here and has remained so except for few isolated normal readings, no low measurements. I think we need to get her blood pressure under better control. I am going to try nebivolol which often slows heart rate less and has fewer side effects than metoprolol (although she is tolerating it well). It was not available in the hospital therefore I will start it upon discharge. It may be a better blood pressure medication as well. 10. Sick sinus syndrome: She seems to have a component of sick sinus syndrome, her heart rate varies quite a bit and is now trending well and although that may be a medication effect it may indicate an underlying sinus node dysfunction. Nebivolol has less heart rate slowing effect than metoprolol. She also has the atrial fibrillation with rapid heart rates. Admission and Anticipated Discharge Date Admission Date: June 11, 2023 Subjective She is feeling well today, no lightheadedness, dizziness or cardiovascular symptoms. Physical Exam Physical Exam: Constitutional: Alert, cooperative and in no distress. HEENT: Unremarkable Neck: No jugular venous distention, carotid pulses are normal and equal bilaterally without bruits. Pulmonary: Clear to auscultation bilaterally. Cardiac: Regular slow rhythm with a grade 2/6 holosystolic murmur at the apex, no gallop or rub. Abdomen: Soft, nontender with normal bowel sounds. Extremities: No edema. Distal pulses intact. Neurologic: No focal findings. Gait is steady. Skin: No rash, ecchymoses or petechiae. Results & Data Vital Signs (Past 12 Hours) Vital Signs Temp Pulse Pulse Resp BP BP Pulse Ox 06/15/23 08:50 61 16 06/15/23 08:43 36.6 C 51 L 18 06/15/23 08:41 53 L 21 06/15/23 08:37 53 L 29 H 06/15/23 08:24 178/77 H 06/15/23 07:47 55 L 16 06/15/23 07:40 54 L 19 06/15/23 07:30 58 L 17 06/15/23 07:20 58 L 16 06/15/23 07:11 56 L 16 06/15/23 07:02 57 L 15 06/15/23 06:52 51 L 15 06/15/23 06:45 53 L 15 06/15/23 03:00 36.8 C 58 L 16 184/101 H 97 O2 Del Method 06/15/23 08:50 06/15/23 08:43 06/15/23 08:41 06/15/23 08:37 06/15/23 08:24 06/15/23 07:47 06/15/23 07:40 06/15/23 07:30 06/15/23 07:20 06/15/23 07:11 06/15/23 07:02 06/15/23 06:52 06/15/23 06:45 06/15/23 03:00 Room Air Laboratory Results Comprehensive Metabolic Panel 06/15/23 Range/Units 04:16 Sodium 134 L (136-145) mmol/L Potassium 4.4 (3.5-5.1) mmol/L Chloride 102 (98-107) mmol/L Carbon Dioxide 27 (21-32) mmol/L BUN 11 (6-23) mg/dl Creatinine 0.82 (0.6-1.2) mg/dl Glucose 87 (70-99(Fasting)) mg/dl Calcium 9.3 (8.6-10.3) mg/dl Intake and Output 06/14/23 06/15/23 06/15/23 22:59 06:59 14:59 Other: Weight 75 kg 75 kg Weight Measurement Method Built in [facility] Patient Weight 06/16/23 06:59 Weight 75 kg Magnesium level today 1.8 Diagnostic Findings Telemetry: Sinus rhythm and sinus bradycardia, no significant arrhythmia PG Care Time/CCT Total # of Minutes Spent Total Time Spent with Patient: Total time spent is greater than 50% in coordination of care (as documented) at patient's floor/unit and/or counseling patient: Coding Level of Care Code 51056 SUB INP/OBS CARE MIN Diagnoses Paroxysmal atrial fibrillation I48.0 Atrial fibrillation type: paroxysmal Anticoagulant long-term use Z79.01 Primary hypertension I10 Hypertension type: primary hypertension (1) Atrial fibrillation Atrial fibrillation type: paroxysmal Qualified Code(s): I48.0 - Paroxysmal atrial fibrillation (3) Hypertension Hypertension type: primary hypertension Qualified Code(s): I10 - Essential (primary) hypertension
--- NOTE | 2023-06-15 11:51 | Electrocardiogram Report ---
Test Reason : Blood Pressure : / mmHG Vent. Rate : 065 BPM Atrial Rate : 065 BPM P-R Int : 192 ms QRS Dur : 070 ms QT Int : 440 ms P-R-T Axes : 067 093 075 degrees QTc Int : 458 ms Sinus rhythm with Premature atrial complexes Rightward axis Rate related Right bundle branch block Nonspecific ST and T wave abnormality Abnormal ECG When compared with ECG of 12-JUN-2023 12:18, Sinus rhythm has replaced Atrial fibrillation Confirmed by Brenton Sosa ([id number]) on 06/15/2023 11:50:43 AM Referred By: Brenton Sosa Confirmed By:Brenton Sosa
--- NOTE | 2023-06-15 11:58 | Electrocardiogram Report ---
Test Reason : Blood Pressure : / mmHG Vent. Rate : 056 BPM Atrial Rate : 056 BPM P-R Int : 200 ms QRS Dur : 074 ms QT Int : 500 ms P-R-T Axes : 065 086 090 degrees QTc Int : 483 ms Sinus bradycardia with Premature atrial complexes with Aberrant conduction Borderline Prolonged QT Abnormal ECG When compared with ECG of 12-JUN-2023 23:23, (unconfirmed) T wave inversion no longer evident in Anterior leads Confirmed by Brenton Sosa ([id number]) on 06/15/2023 11:57:54 AM Referred By: Brenton Sosa Confirmed By:Brenton Sosa
--- NOTE | 2023-06-15 12:00 | Electrocardiogram Report ---
Test Reason : Blood Pressure : / mmHG Vent. Rate : 058 BPM Atrial Rate : 058 BPM P-R Int : 204 ms QRS Dur : 082 ms QT Int : 500 ms P-R-T Axes : 065 077 080 degrees QTc Int : 492 ms Sinus bradycardia with Premature supraventricular complexes Borderline ECG Prolonged QT Abnormal ECG When compared with ECG of 13-JUN-2023 11:13, (unconfirmed) No significant change was found Confirmed by Brenton Sosa ([id number]) on 06/15/2023 12:00:05 PM Referred By: Brenton Sosa Confirmed By:Brenton Sosa
--- NOTE | 2023-06-17 20:55 | Coding Query ---
CODING QUERY To promote full compliance with coding requirements relating to patient care, provider participation is requested in all cases of pot fireman uncertainty. Please assist us with the question(s) below: Documentation in the medical record indicates the following: Pulmonary edema: She presented in pulmonary edema following cardioversion. This is something which occurs from time to time following cardioversion. Perhaps she will be at more risk for heart failure in the future Coding Question(s): Based on your medical judgment, can you further clarify in the progress notes the acuity of the pulmonary edema? Acute Chronic Flash Unable to determine Physician's Response(s): This was an acute event following cardioversion, it was sometime ago and is not a current issue. Thank you. Thank you Maame Bowen Principal Diagnosis: "that condition established after study, to be chiefly responsible for occasioning the admission of the patient to the hospital for care." Co-Existing Principal Diagnosis: "when two or more diagnoses equally meet the criteria for principal diagnosis as determined by the circumstances of admission, diagnostic work up, and/or therapy provided, and the Alphabetic Index, Tabular List, or another coding guideline does not provide sequencing direction, any one of the diagnoses may be sequenced first." "When the physician has documented what appears to be a current diagnosis in the body of the record, but has not included the diagnosis in the final diagnostic statement, the physician should be asked whether the diagnosis should be added." (Source Coding [facility] 2 QTR90. p3-4) CALE
--- NOTE | 2023-06-27 09:27 | Discharge Summary ---
Date of Service June 15, 2023 Admission HPI Per Admitting Provider This is a 72-year-old woman with a history of hypertension, dyslipidemia, osteoarthritis, intermittent longstanding diarrhea. She does have a bicuspid aortic valve with minimal stenosis although there was a slightly increased gradient compared to 2013. She did have trace mitral regurgitation at that time. The aortic gradient in March 2020 was 18 mmHg maximum with a calculated valve area of 2.2 cm. Interestingly she also has a history of TIA and is on aspirin, in retrospect perhaps this was cardioembolic although I believe neurology has not identified a specific stroke and it may be due to migraine issues. Because of this I believe she was started on aspirin 81 mg daily which she had been on for years however that has been replaced with Eliquis. On presentation November 11, 2020 an electrocardiogram done at 1812 showed atrial fibrillation with a rapid heart rate of 140 bpm and a right bundle branch block pattern. A follow-up electrocardiogram November 12, 2020 at 1445 showed a better controlled heart rate of 99 bpm with continued right bundle branch block. In comparison an electrocardiogram done March 29, 2020 showed sinus rhythm at 92 bpm with right bundle branch block. She does have a history of excessive alcohol intake which could be contributory. She was rate controlled with addition of metoprolol succinate which was titrated to 150 mg daily and she was anticoagulated with Eliquis. She was discharged still in atrial fibrillation. She did record her blood pressure and heart rate daily at home, interestingly her heart rate was averaging around 100 on her home blood pressure monitoring until November 22, 2020 when it dropped into the 50s and has remained there. I suspect therefore that her atrial fibrillation converted somewhere between November 21 and November 22, 2020. She did not feel any different, she was feeling fatigued which has been gradually improving since discharge but there was no sudden change at the time when her heart rate dropped. This is consistent with her having asymptomatic paroxysmal atrial fibrillation as suspected. She did have her back [place] 15, 2021 [place] with what sounds like orthostatic symptoms. She noted that when she would stand up she would get very lightheaded, diaphoretic and have double vision, this kept her from being very active and was not associated with palpitations. She noted that she had a back injection January 15, 2022 and after that noted that she developed what she thinks was atrial fibrillation about 2 days later. This was symptomatic and that she was easily fatigued, she noted that her heart rate was elevated over her usual heart rate but still less than 100, her pulse was confirmed to be irregular by her daughter who is a nurse. About 12 days later her heart rate returned to normal and her fatigue resolved. She believes she was in sinus rhythm for only a short time, somewhere in early February 2022 she developed symptoms compatible with atrial fibrillation (which are mild, mostly easy fatigability, not palpitations) and her blood pressure monitor noted an increased heart rate and irregularity. That has remained so she believes she has been in atrial fibrillation continuously since then. During that time time she has been suffering from an upper respiratory infection or sinus infection, she was recently prescribed antibiotics and this has improved, although she is going to make an appointment to see a language tutor at [facility] for recurrent upper respiratory infections. She also has some mild dyspnea on exertion which has not changed. She does not have other heart failure symptoms such as orthopnea, PND or peripheral edema and she does not have exertional chest discomfort. I did prescribe flecainide 50 mg twice a day which she tolerated well at that dose and we did perform cardioversion June 09, 2022. She left the hospital in sinus rhythm however felt that her atrial fibrillation returned after about 36 hours. I tried to increase her flecainide to 100 mg twice a day however she developed a lot of symptoms including blurred vision, nausea and disorientation. She did decrease the dose back to 50 mg daily but remained in atrial fibrillation. She continued to have symptoms related to her atrial fibrillation and preferred to be in sinus rhythm therefore dronedarone 400 mg twice a day was prescribed on July 04, 2022. With ongoing atrial fibrillation cardioversion was performed on July 18, 2022, she was discharged however later that day she presented with pulmonary edema and was admitted. An echocardiogram done on the day of discharge showed normal left ventricular size and function with an ejection fraction of 55 to 60% and mild concentric left ventricular hypertrophy. She does have mild aortic stenosis with a bicuspid aortic valve. She was diuresed and discharged on July 19, 2022. On discharge furosemide 20 mg daily was added to her regimen (she had never been on diuretics before and did not have a history of heart failure) and she was advised to cut down her fluid intake to 7-1/2 cups/day and to use between 1200 and 2,000 mg of salt daily. Since that discharge she was initially feeling poorly, and her blood pressure was quite labile and she had orthostatic symptoms. I therefore decreased her metoprolol succinate from 100 mg daily to 50 mg daily on August 23, 2022. She did go to [facility] for a visit sometime in September, I do not have a copy of that evaluation but she wanted to make contact in case she needed an ablation in the future. They agreed with the approach of continuing antiarrhythmic therapy and considering ablation if needed in the future. We have continued Multaq although we did recognize that she was having some breakthrough atrial fibrillation, however she felt relatively well on it (perhaps because of its rate controlling effect). She does have a Fitbit watch now and she has been monitoring her rhythm, she notes that she has had 16 days showing atrial fibrillation and only 11 days without atrial fibrillation. The episodes are clearly paroxysmal and she has not had prolonged episodes of atrial fibrillation. She is not having side effects on the metoprolol, in fact feels fairly well on it, but does confirm that she definitely feels better when she is in sinus rhythm with increased energy and stamina. When she is in atrial fibrillation she feels fatigued and tired. Multaq is evidently not very effective (based on her Fitbit but that seems to be relatively reliable) and therefore I think we need to use a different agent. She is agreeable to try a different agent and we discussed options including Tikosyn and amiodarone. I think Tikosyn would be preferable due to the lack of toxicity but it does require a hospitalization. She is agreeable to this and she is being admitted for initiation of Tikosyn. I will start 250 mg twice a day. She was recently in [place] where she had a brief admission for a urinary tract infection and has recovered from this. From cardiovascular standpoint she is feeling relatively well although she does make her heart rate and notes that she has been in atrial fibrillation and has been taking extra metoprolol succinate, she is taking 150 mg daily in the morning. Admission Exam (Per Admitting) Constitutional Constitutional: Alert, cooperative and in no distress. HEENT: Unremarkable Neck: No jugular venous distention, carotid pulses are normal and equal bilaterally without bruits. Pulmonary: Clear to auscultation bilaterally. Cardiac: Irregular rhythm with a grade 2/6 holosystolic murmur at the apex, no gallop or rub. Abdomen: Soft, nontender with normal bowel sounds. Extremities: No edema. Distal pulses intact. Neurologic: No focal findings. Gait is steady. Skin: No rash, ecchymoses or petechiae. Hospital Course (1) Atrial fibrillation: (2) Anticoagulant long-term use: (3) Hypertension: Plan 1. Orthostatic hypotension: Currently she is feeling quite well in this regard on her current regimen. Her blood pressure is very high but I am concerned about controlling it too closely as we may exacerbate orthostatic symptoms. 2. Pulmonary edema: She presented in pulmonary edema following cardioversion. This is something which occurs from time to time following cardioversion, it is quite rare and to my knowledge and mechanism is not clear. I do not think she needs to take a diuretic on a regular basis but could keep it as needed. Perhaps she will be at more risk for heart failure in the future and she is concerned about this, fortunately she converted to sinus rhythm on her own so we do not need cardioversion this admission. She had no difficulty with heart failure with that conversion. 3. Acute kidney injury: Starting after her pulmonary edema admission her BUN/creatinine increased, the BUN became quite elevated consistent with dehydration. That normalized with discontinuation of diuretics. 4. Atrial fibrillation: In the past we have felt that she was asymptomatic with her atrial fibrillation, but now she notices symptoms such as easy fatigability and dyspnea on exertion when she is in atrial fibrillation, and may also be aware of the irregularity. She feels better in sinus rhythm and can correlate her symptoms with her rhythm is identified on her Fitbit, I am therefore going to continue to try to maintain sinus rhythm with Tikosyn which is often quite effective. She has converted to sinus rhythm and has remained there which is a good sign. 5. Anticoagulation: She is on Eliquis, she is on the correct dose based on her age and weight and I recommended that she continue it. 6. Right bundle branch block: She presented in atrial fibrillation with a right bundle branch block pattern which was new, that has been documented during atrial fibrillation at higher heart rates (including admission here) however with sinus rhythm and at slower heart rates during atrial fibrillation that resolved. With better rate control of her atrial fibrillation she did not have a right bundle branch block pattern, however it was present on Multaq at 73 bpm. It may be somewhat rate dependent but perhaps progressive. This does not alter our approach. 7. Bicuspid aortic valve: She has a bicuspid aortic valve but does not have a gradient sufficient to require further evaluation or treatment at this time. We will need to watch this over time with echocardiography. 8. History of TIA: I am not sure the cause of her prior TIAs was specifically determined, no stroke was found on evaluation however I am not sure that would eliminate the possibility of tiny embolic events as a cause. She was felt to have small vessel disease and was on aspirin initially however that has been discontinued with initiation of anticoagulation. So far she has had no recurrence of the symptoms and since aspirin with anticoagulation increases the risk of bleeding substantially I am going to continue the current plan of Eliquis and atorvastatin without aspirin. 9. Hypertension: She has a history of hypertension, on home blood pressure monitoring her blood pressure is quite labile, sometimes low and sometimes high but mostly reasonably well controlled. Her blood pressure was very high on presentation here and has remained so except for few isolated normal readings, no low measurements. I think we need to get her blood pressure under better control. I am going to try nebivolol which often slows heart rate less and has fewer side effects than metoprolol (although she is tolerating it well). It was not available in the hospital therefore I will start it upon discharge. It may be a better blood pressure medication as well. 10. Sick sinus syndrome: She seems to have a component of sick sinus syndrome, her heart rate varies quite a bit and is now trending well and although that may be a medication effect it may indicate an underlying sinus node dysfunction. Nebivolol has less heart rate slowing effect than metoprolol. She also has the atrial fibrillation with rapid heart rates. Coding Level of Care Code 06908 IN/OBS DISCH 30 MIN/LESS Diagnoses Paroxysmal atrial fibrillation I48.0 Atrial fibrillation type: paroxysmal Anticoagulant long-term use Z79.01 Primary hypertension I10 Hypertension type: primary hypertension
== END 2023-06-15 11:13 | disposition home or self-care (01) | DRG 309 ==
LOC: 2W 16:01 → 1E 16:19